=== PATIENT | male | born 1985 | race Caucasian/White ===

== ENCOUNTER 2023-11-08 09:12 | Outpatient (CLI) | payer MEDICARE, SELFPAY ==
--- NOTE | ~2023-11-08 | XR_ITS ---
Right Knee Technique: AP, lateral, and sunrise views were obtained. Clinical History: Pain Findings: No fracture or dislocation is seen. Osseous alignment is anatomic. Joint spaces are preserv ed without degenerative or erosive change. Soft tissues are unremarkable. No joint effusion is seen. Impression: Unremarkable right knee radiographs. Reviewed, dictated and finalized at location . [facility] Impression: Unremarkable right knee radiographs.
== END 2023-11-08 09:13 ==
LOC: MICIMG 09:18
PROVIDERS: PCP Nurse Practitioner Family; Visit Provider Nurse Practitioner Family
DX: M25.561 Pain in right knee (principal)
CPT/HCPCS: 73564

== ENCOUNTER 2024-07-30 09:17 | Outpatient (CLI) | payer MEDICARE, SELFPAY ==
--- NOTE | ~2024-07-30 | XR_ITS ---
AP view of the pelvis and AP and lateral views of the right hip Clinical history: Pain Findings: No acute fracture or dislocation is seen. Osseous alignment is anatomic. Bilateral hip and SI joint spaces are preserved. Soft tissues are unremarkable. Impression: No significant abnormality is seen. Reviewed, dictated and finalized at [facility]. Impression: No significant abnormality is seen.
== END 2024-07-30 09:18 | disposition home or self-care (01) ==
PROVIDERS: PCP Nurse Practitioner Family; Visit Provider Nurse Practitioner Family
DX: M25.559 Pain in unspecified hip (principal)
CPT/HCPCS: 73502

== ENCOUNTER 2025-08-19 14:51 | Inpatient (IN) | payer MEDICARE, SELFPAY ==
--- OUTSIDE RECORDS SUMMARY | 2023-09-13 12:38 | XMS_ITS | Encounter Summary ---
Author Organization [facility] Address [address] [place] [address] Phone Care Team Providers Care Special Deputy Sheriff Name Role Phone Isaac Brizuela MD Unavailable [phone] Isaac Lobo DO Primary Care Provide r Reason for Referral * Procedure (Routine) - Closed Specialty Diagnoses / Procedures Referred By Yasmin bonilla Referred To Contact Pulmonology Diagnoses Respiratory failure with hypoxia, unspecified chronicity (HCC) Procedures Pulmonary Function Test -[facility] Adult PFT Lab- [facility]; Oxygen Assessment Titration, Spirometry, Spirometry with Bronchodilator, ABG, Lung Volumes, DLCO; Pleth with Airway Resistance; Room Air ABG; Spirometry Abrahan Tavera MD [address] [place] [address] Phone: tel: fax: Referral ID Status Reason Start Date Expiration Date Visits Re quested Visits Authorized [id number] Closed 06/30/2023 07/29/2024 1 1 OUT MARKER Reason for Visit * Procedure (Routine) - Closed Specialty Diagnoses / Procedures Referred By Contsanjana t Referred To Contact Pulmonology Diagnoses Respiratory failure with hypoxia, unspecified chronicity (HCC) Procedures Pulmonary Function Test -[facility]FT [facility]- [facility]; Oxygen Assessment Titration, Spirometry, Spirometry with Bronchodilator, ABG, Lung Volumes, DLCO; Pleth with Airway Resistance; Room Air ABG; Spirometry Abrahan Tavera MD [address] [place] [address] Phone: tel: fax: Referral ID Status Reason Start Date Expiration Date Visits Re quested Visits Authorized [id number] Closed 06/30/2023 07/29/2024 1 1 Encounter Details Date Type Department Care Team (Latest Contact Info) Description 09/13/2023 11:38 AM CUT OUT MARKER Hospital Encounter [facility] Medicine PFT Lab [address] [facility] [address] [place] [address] Respiratory failure with hypoxia, unspecified chronicity (HCC) Social History Tobacco Use Types Packs/Day Years Used Date Smoking Tobacco: Every Day Cigarettes 1 15 Smokeless Tobacco: Never Alcohol Use Standard Drinks/Week Comments No 0 (1 standard drink = 0.6 oz pur e alcohol) Personal Safety Answer Date Recorded Have you ever been in or are you currently in a harmful physical or emotional relationship or is someone making you feel afraid or unsafe? Denies 06/10/2023 Sex and Gender Information Value Date Recorded Sex Assigned at Not on file Legal Sex Male 12:34 AM CUT OUT MARKER Gender Identity Not on file Sexual Orientation Not on file documented as of this encounter Plan of Treatment Not on file documented as of this encounter Goals Goal Patient Goal Type Associated Problems Recent Progress Patient-Stated? Author CCM Chronic Pain Care Plan Chronic Care Management Worsening( 8:46 AM CDT) Ping Abarca, RN Note: Problem: Chronic Pain Goals: 1. Minimize further functional decline 2. Maximize quality of life 3. Control pain Strategies: - Activity/exercise program recommendation - Conservative stepwise pain medicine strategy with multi-disciplinary approach - Recommend healthy lifestyle strategies and compensatory methods as needed documented as of this encounter Procedures Procedure Name Priority Date/Time Associated Diagnosis Comments PULMONARY FUNCTION TEST (PFT) Routine 09/13/2023 12:33 PM CUT OUT MARKER Respiratory failure with hypoxia, unspecified chronicity (HCC) documented in this encounter Results * Pulmonary Function Test - (09/13/2023 12:33 PM CUT OUT MARKER) FVC PRE 2.60 L [facility] FVC %PRE PRED 60 % [facility] FVC POST 2.73 L [facility] FVC %POST PRED 63 % [facility] FEV1 PRE 2.26 L [facility] FEV1 %PRE PRED 63 % [facility] FEV1 POST 2.40 L [facility] FEV1 %POST PRED 67 % [facility] FEV1/FVC PRE 86.8 % [facility] FEV1/FVC POST 87.8 % [facility] FRC PL PRE 2.42 L [facility] FRC PL %PRE PRED 86 % [facility] RV PRE 1.50 L [facility] RV %PRE PRED 99 % [facility] TLC PRE 4.39 L [facility] TLC %PRE PRED 75 % [facility] DLCO PRE 12.9 ml/min/mmH g [facility] DLCO %PRE PRED 48 % [facility] FIO2 % 21.00 % [facility] PaO2 70.0 mmHg [facility] PaCO2 45.0 mmHg [facility] pH 7.41 [facility] A-aDO2 POC 23.0 mmHg [facility] METHGB % 1.0 % [facility] COHb POC 12.4 % [facility] HCO3 28.5 mEq/L [facility] Anatomical Region Laterality Modality PFT 09/13/2023 11:4 1 AM CUT OUT MARKER Impressions 09/14/2023 12:43 PM CUT OUT MARKER There is a mild restrictive ventilatory defect. There is moderate impairment of alveolar gas exchange by DLCO. There is mild impairment of O2 gas exchange at rest by ABG. The carboxyhemoglobin level is consistent with current smoking status. The attending pulmonary physician certifies a physician presence in the [facility] during the administration of aerosolized bronchodilator. The attending pulmonary physician certifies that he/she has reviewed and interpreted the graphic and numerical data of this pulmonary function study and agrees with the written final report. The lower limit of normal for PO2 and %HbO2 is age dependent. However, the [facility] Pulmonary Function Laboratory defines hypoxemia as a PO2 <55 or a %HbO2 <89. Narrative 09/14/2023 12:43 PM CUT OUT MARKER Table formatting from the original result was not included. [facility] Division of Pulmonary & Critical Care Medicine [address] [place] [address]; [place]; [place] [address]; [phone] Pulmonary Function Laboratory Pulmonary Stress Test Simple/Oxygen Assessment Patient: Sahil Arroyo Date: 09/13/2023 : 1985 Ht: 64.5 IN Wt: 189.1 LBS Time (min) Distance (ft)/ Leroy O2 L/M SpO2 HR Shiela* BP FEV1 % Pred Rest: RA 95 113 0.5 94/64 2.26 63 % Walk/Bike: 1 RA 93 121 2 2 RA 91 121 3 3 RA 91 126 3 4 RA 91 127 4 5 RA 87 127 4 6 min 0 sec RA 92 128 4 Recovery: 1 RA 97 122 5 94/66 2.13 60% 3 *Shiela rate of perceived exertion (1-10 dyspnea scale) Patricio, CHEST 2003; 123:1408 Walk Test Summary: Six Minute Walk Distance: 955 ft Six-minute Walk Work [distance (m) x body wt (kg)]: 48887 kg.m (normal >60,000kg.m) Oxygen required to maintain SpO2 greater than 90% during six minutes of walkin L/M Comments: Interpretation: Breathing room air, SpO2 is normal at rest and during exercise sufficient to increase pulse from 113 to 128 b/min, SpO2 falls but remains normoxemic . On this basis, SpO2 is adequate at rest breathing room air and while walking breathing room air. This level of exercise is associated with no significant change of FEV1. Lee López M.D. By signing this report, the attending pulmonary physician certifies that he/she has personally reviewed and interpreted the graphic and numerical data associated with this pulmonary function study and has reviewed and /or edited a preliminary draft report and agrees with the written final report. PFT performed at:->[facility] Adult PFT Lab- [facility] Procedure:->Oxygen Assessment Titration Procedure:->Spirometry Procedure:->Spirometry with Bronchodilator Procedure:->ABG Procedure:->Lung Volumes Procedure:->DLCO Lung Volumes via:->Pleth with Airway Resistance ABG:->Room Air ABG DLCO:->Spirometry Pulmonary Function Test Interpretation SPIROMETRY: The FEV-I and FVC are reduced in a pattern suggestive of a restrictive abnormality. There is no significant improvement after inhaling a single nebulized dose of albuterol. FLOW VOLUME LOOPS: The inspiratory loop is appropriate for the expiratory flow abnormality. LUNG VOLUMES: TLC measured by plethysmography is decreased. DIFFUSING CAPACITY: DLCO did not meet standards of acceptability and reproducibility. This diminishes the reliability of the results The diffusing capacity corrected for hemoglobin level (DLCO ADJ) is decreased. A decreased diffusing capacity may be due to loss of pulmonary capillary surface area. Causes inctude pulmonary fibrosis (altered LULY relationship), pulmonary vascutar disease, emphysema, or interstitial pneumonitis. ARTERIAL BLOOD GASES: There is a compensated metabolic alkalosis. The arterial p02 is below the lower limit of normal for the patient's age at rest. 02 saturation measured by oximetry is in the hypoxemic range at rest. The COHb level is 12.4 %. Normal is less than 2%. Abrahan Tavera MD PFT ORDERABLES Final Result documented in this encounter Visit Diagnoses Diagnosis Respiratory failure with hypoxia, unspecified chronicity (HCC) documented in this encounter Care Teams Special Deputy Sheriff Relationship Specialty Start Date End Date Isaac Lobo DO [address] [place] [address] PCP - General Family Medicine 09/13/23 Isaac Brizuela MD [address] [address] Pulmonary Disease 04/21/23 documented as of this encounter
--- OUTSIDE RECORDS SUMMARY | 2023-09-13 12:38 | XMS_ITS | Encounter Summary ---
Author Organization [facility] Address [address] [place] [address] Phone Care Team Providers Care Wildlife Biologist Name Role Phone Isaac Brizuela MD Unavailable [phone] Isaac Lobo DO Primary Care Provide r Reason for Referral * Procedure (Routine) - Closed Specialty Diagnoses / Procedures Referred By Yasmin bonilla Referred To Contact Pulmonology Diagnoses Respiratory failure with hypoxia, unspecified chronicity (HCC) Procedures Pulmonary Function Test -[facility]FT [facility]- [facility]; Oxygen Assessment Titration, Spirometry, Spirometry with Bronchodilator, ABG, Lung Volumes, DLCO; Pleth with Airway Resistance; Room Air ABG; Spirometry Abrahan Tavera MD [address] [place] [address] Phone: tel: fax: Referral ID Status Reason Start Date Expiration Date Visits Re quested Visits Authorized [id number] Closed 06/30/2023 07/29/2024 1 1 GER LINUX Reason for Visit * Procedure (Routine) - Closed Specialty Diagnoses / Procedures Referred By Contsanjana t Referred To Contact Pulmonology Diagnoses Respiratory failure with hypoxia, unspecified chronicity (HCC) Procedures Pulmonary Function Test -[facility]- [facility]; Oxygen Assessment Titration, Spirometry, Spirometry with Bronchodilator, ABG, Lung Volumes, DLCO; Pleth with Airway Resistance; Room Air ABG; Spirometry Abrahan Tavera MD [address] [place] [address] Phone: tel: fax: Referral ID Status Reason Start Date Expiration Date Visits Re quested Visits Authorized [id number] Closed 06/30/2023 07/29/2024 1 1 Encounter Details Date Type Department Care Team (Latest Contact Info) Description 09/13/2023 11:38 AM MANAGER LINUX Hospital Encounter [facility] Medicine PFT Lab [address] [facility] [address] [place] [address] Respiratory failure with hypoxia, unspecified chronicity (HCC) [...] on file Legal Sex Male 12:34 AM MANAGER LINUX Gender Identity Not on file Sexual Orientation [...] FUNCTION TEST (PFT) Routine 09/13/2023 12:33 PM MANAGER LINUX Respiratory failure with hypoxia, unspecified chronicity (HCC) documented in this encounter Results * Pulmonary Function Test - (09/13/2023 12:33 PM MANAGER LINUX) FVC PRE 2.60 L [facility] FVC %PRE PRED 60 % [facility] FVC POST 2.73 L [facility] FVC %POST PRED 63 % [facility] FEV1 PRE 2.26 L [facility] FEV1 %PRE PRED 63 % [facility] FEV1 POST 2.40 L [facility] FEV1 %POST PRED 67 % [facility] FEV1/FVC PRE 86.8 % [facility] FEV1/FVC POST 87.8 % [facility] FRC PL PRE 2.42 L [facility] FRC PL %PRE PRED 86 % [facility] RV PRE 1.50 L [facility] RV %PRE PRED 99 % [facility] TLC PRE 4.39 L [facility] TLC %PRE PRED 75 % [facility] DLCO PRE 12.9 ml/min/mmH g [facility] DLCO %PRE PRED 48 % [facility] FIO2 % 21.00 % [facility] PaO2 70.0 mmHg [facility] PaCO2 45.0 mmHg [facility] pH 7.41 [facility] A-aDO2 POC 23.0 mmHg [facility] METHGB % 1.0 % [facility] COHb POC 12.4 % [facility] HCO3 28.5 mEq/L [facility] Anatomical Region Laterality Modality PFT 09/13/2023 11:4 1 AM MANAGER LINUX Impressions 09/14/2023 12:43 PM MANAGER LINUX There is a mild restrictive ventilatory defect. [...] and %HbO2 is age dependent. However, the [facility] Pulmonary Function Laboratory defines hypoxemia as a PO2 <55 or a %HbO2 <89. Narrative 09/14/2023 12:43 PM MANAGER LINUX Table formatting from the original result was not included. [facility] Division of Pulmonary & Critical Care Medicine [address] [place] [address]; [address]; [place] [address]; [phone] Pulmonary Function Laboratory Pulmonary Stress Test Simple/Oxygen [...] Work [distance (m) x body wt (kg)]: 12033 kg.m (normal >60,000kg.m) Oxygen required to maintain [...] with the written final report. PFT performed at:->[facility] Adult PFT Lab- [facility] Procedure:->Oxygen Assessment Titration Procedure:->Spirometry Procedure:->Spirometry with [...] (HCC) documented in this encounter Care Teams Wildlife Biologist Relationship Specialty Start Date End Date Isaac Lobo DO [address] [place] [address] PCP - General Family Medicine 09/13/23 Isaac Brizuela MD [address] [address] Pulmonary Disease 04/21/23 documented as of this encounter
--- OUTSIDE RECORDS SUMMARY | 2025-05-01 12:30 | XMS_ITS ---
Author Organization [facility] ([address]) Address [address] [place] [address] Care Team Providers Care Apprentice Funeral Director Name Role Phone Isaac Lobo Primary Care Provider Estrella Thornton Unavailable [phone] REASON FOR VISIT VIT (Venom IT) Social History Sex Assigned At : Social History Observation Description Sex Assigned At Male Encounters Encounter Location Date Provider Diagnosis [facility] [address] [place] [address] 05/01/2025 Estrella Griffith Plan Of Treatment Next Appt Details Provider Name:Estrella sorto, 08/28/2025 10:00:00 AM, [address] [employer], [address], [place], [address], Provider Name:Dory escalera, 10/03/2025 02:45:00 PM, [address] [place] [address], [address], Provider Name:Estrella sorto, 11/06/2025 11:00:00 AM, [address] [employer], [address], [place], [address], Progress Notes * Lissy STARKOB:1985 (40 yo M)Acc No.[id number]:05/01/2025 VIT-Venom Patient: Sahil JAUREGUI Provider: aSda Griffith MD :1985 A ge:39 Y S ex:Male Date:05/01/2025 Address:[address] [place] [address] [facility] Pcp:Isaac Lobo Subjective: * Chief Complaints: * 1 . VIT (Venom IT). * Medical History: Objective: * Vitals: Assessment: Plan: * Treatment: * Billing Information: * Visit Code: * Procedure Codes: * Electronic signature of Roseanne Griffith MD on 08/20/2025 at 08:15 AM CDT Sign off status: Pending * Provider: Sada Griffith MD Date: 0 05/01/2025 Generated for Lena oliva/Alessandra/Michaelsmitting on: 1 08:15 AM CDT
--- OUTSIDE RECORDS SUMMARY | 2025-05-01 12:30 | XMS_ITS ---
Author Organization [facility] ([address]) Address [address] [place] [address] Care Team Providers Care Plasma Processing Technician Name Role Phone Isaac Lobo Primary Care Provider Estrella Thornton Unavailable [phone] REASON FOR VISIT VIT (Venom IT) Social History Sex Assigned At : Social History Observation Description Sex Assigned At Male Encounters Encounter Location Date Provider Diagnosis [facility] [address] [place] [address] 05/01/2025 Estrella Griffith Plan Of Treatment Next Appt Details Provider Name:Estrella sorto, 08/28/2025 10:00:00 AM, [address] [employer], [address], [place], [address], Provider Name:Dory escalera, 10/03/2025 02:45:00 PM, [address] [place] [address], [address], Provider Name:sEtrella sorto, 11/06/2025 11:00:00 AM, [address] [employer], [address], [place], [address], Progress Notes * Lissy STARKOB:1985 (40 yo M)Acc No.[id number]:05/01/2025 VIT-Venom Patient: Sahil JAUREGUI Provider: Sada Griffith MD :1985 A ge:39 Y S ex:Male Date:05/01/2025 Address:[address] [place], [place] [id number] Pcp:Isaac Lobo Subjective: * Chief Complaints: * 1 . VIT (Venom IT). * Medical History: Objective: * Vitals: Assessment: Plan: * Treatment: * Billing Information: * Visit Code: * Procedure Codes: * Electronic signature of Roseanne Griffith MD on 08/19/2025 at 06:46 PM CDT Sign off status: Pending * Provider: Sada Griffith MD Date: 0 05/01/2025 Generated for Lena oliva/Alessandra/Michaelsmitting on: 1 06:46 PM CDT
--- OUTSIDE RECORDS SUMMARY | 2025-05-15 12:30 | XMS_ITS ---
Author Organization [facility] [place] [facility] ([address]) Address [address] [place] [address] Care Team Providers Care Hedis Abstractor Name Role Phone Isaac Lobo Primary Care Provider Estrella Thornton Unavailable [phone] REASON FOR VISIT ARC follow-up Social History Sex Assigned At : Social History Observation Description Sex Assigned At Male Encounters Encounter Location Date Provider Diagnosis [facility] [address] [place] [address] 05/15/2025 Estrella Griffith Plan Of Treatment Next Appt Details Provider Name:Estrella sorto, 08/28/2025 10:00:00 AM, [address] [employer], [address], [address], Provider Name:Dory escalera, 10/03/2025 02:45:00 PM, [address] [place] [address], [address], Provider Name:Estrella sorto, 11/06/2025 11:00:00 AM, [address], [address], [place], [address], Progress Notes * Lissy STARKOB:1985 (40 yo M)Acc No.[id number]:05/15/2025 Progress Notes Patient: Sahil JAUREGUI Provider: Sada Griffith MD :1985 A ge:39 Y S ex:Male Date:05/15/2025 Address:[address] [place], [place] [address] Pcp:Isaac Lobo Subjective: * Chief Complaints: * 1 . ARC follow-up. * Medical History: Objective: * Vitals: Assessment: Plan: * Treatment: * Billing Information: * Visit Code: * Procedure Codes: * Electronic signature of Roseanne Griffith MD on 08/20/2025 at 08:15 AM CDT Sign off status: Pending * Provider: Sada Griffith MD Date: 0 05/15/2025 Generated for Lena oliva/Alessandra/eTransmeunice on: 1 08:15 AM CDT
--- OUTSIDE RECORDS SUMMARY | 2025-05-15 12:30 | XMS_ITS ---
Author Organization [facility] ([address]) Address [address] [place] [address] Care Team Providers Care Analytical Technician Name Role Phone Isaac Lobo Primary Care Provider Estrella Thornton Unavailable [phone] REASON FOR VISIT ARC follow-up Social History Sex Assigned At : Social History Observation Description Sex Assigned At Male Encounters Encounter Location Date Provider Diagnosis [facility] [address] [place] [address] 05/15/2025 Estrella Griffith Plan Of Treatment Next Appt Details Provider Name:Estrella sorto, 08/28/2025 10:00:00 AM, [address] [employer], [address], [address], Provider Name:Dory escalera, 10/03/2025 02:45:00 PM, [address] [place] [address], [phone], Provider Name:Estrella sorto, 11/06/2025 11:00:00 AM, [address] [employer], [address], [place], [address], Progress Notes * Lissy STARKOB:1985 (40 yo M)Acc No.[id number]:05/15/2025 Progress Notes Patient: Sahil JAUREGUI Provider: Sada Griffith MD :1985 A ge:39 Y S ex:Male Date:05/15/2025 Address:[address] [place] [address] [facility] Pcp:Isaac Lobo Subjective: * Chief Complaints: * 1 . ARC follow-up. * Medical History: Objective: * Vitals: Assessment: Plan: * Treatment: * Billing Information: * Visit Code: * Procedure Codes: * Electronic signature of Roseanne Griffith MD on 08/19/2025 at 06:47 PM CDT Sign off status: Pending * Provider: Sada Griffith MD Date: 0 05/15/2025 Generated for Lena oliva/Alessandra/eTlaurasmeunice on: 1 06:47 PM CDT
[2025-08-19] VITALS (11 sets, daily range): BP systolic 97–140; BP diastolic 61–98; PULSE 79–93; RESP 16–22; TEMP 36.4–36.8; O2SAT 93–98; BMI 27.6
--- NOTE | ~2025-08-19 | CT_ITS ---
EXAMINATION: CT brain wo con COMPARISON: None HISTORY: fall, seizure, hit head TECHNIQUE: Axial images were obtained through the brain without IV contrast. CT scan performed using dose optimization techniques including the following automated exposure control; adjustment of mA and/or kV; use of iterative reconstruction technique. Automatic exposure control was used to reduce radiation dose. Permanent radiation dose record is archived to PACS. FINDINGS: No acute infarct or parenchymal hemorrhage. No abnormal mass or mass effect. No midline shift. No extra-axial fluid collections. No hydrocephalus. . Mastoid air cells unremarkable. Sinuses and orbits unremarkable. No acute fracture. No significant facial or scalp soft tissue swelling evident. No radiopaque foreign body is seen. Impression: 1.No acute intracranial abnormality. Reviewed, dictated and finalized at location P. Impression: 1.No acute intracranial abnormality.
--- NOTE | ~2025-08-19 | MR_ITS ---
EXAMINATION: MR brain/brain stem wo/w con DATE: 08/20/2025 12:16 INDICATION: Seizures TECHNIQUE: Magnetic resonance imaging (MRI) of the brain and brainstem was performed without and with 15 mL Multihance intravenous contrast. Sequences included sagittal and axial T1-weighted SE, axial diffusion-weighted FS SE, axial T2*-weighted GRE, axial T2-weighted FLAIR Propeller, axial T2-weighted Propeller, coronal T2-weighted FLAIR, and coronal T1-weighted 3D FSPGR. Postcontrast axial T1-weighted SE was obtained. Apparent diffusion coefficient (ADC) maps were created. COMPARISON: None. FINDINGS: There are no areas of restricted diffusion to suggest acute infarction. No intracranial hemorrhage or abnormal intracranial mass lesion. Normal and symmetric bilateral hippocampi. No hatfield matter heterotopias or other evident neuronal migrational abnormalities. There are no intraparenchymal signal abnor malities seen on the other pulse sequences. The ventricles are symmetric and normal in size. There are no abnormal extra-axial fluid collections. Flow voids are seen in the cerebral arteries on the T2-weighted sequences consistent with their expected patency. Visualized orbits and soft tissues are unremarkable. There are no areas of abnormal enhancement on the post contrast images. IMPRESSION: 1. Normal brain MR. No acute intracranial process, abnormal enhancing brain lesions or other etiology for reported seizures. Reviewed, dictated and finalized at location A. IMPRESSION: 1. Normal brain MR. No acute intracranial process, abnormal enhancing brain les ions or other etiology for reported seizures.
--- NOTE | 2025-08-19 15:00 | ECG_ITS ---
Test Date: 2025-08-19 15:02:23 Measurements Intervals [place] Rate: 90 P: 60 CT: 155 QRS: -15 QRSD: 105 T: 28 QT: 349 QTc: 428 Interpretive Statements SINUS RHYTHM LOW QRS VOLTAGE IN PRECORDIAL LEADS INCOMPLETE RIGHT BUNDLE BRANCH BLOCK BASELINE ARTIFACT- I, II, AVR, AVL, V1-V2 BORDERLINE ECG No previous ECG available for comparison Electronically Signed On 08-19-2025 17:01:13 CDT by Jeyson Mcallister D.O.
--- NOTE | 2025-08-19 15:04 | ED.SEIZURE ---
HPI - Seizure General Chief Complaint: Seizure Stated Complaint: seizure ? Time Seen by Provider: 08/19/25 14:55 Source: patient and EMS Mode of arrival: EMS Limitations: no limitations History of Present Illness HPI Narrative: This is a 40 yo male with history of CPRS now s/p ketamine treatments who presents to the ED via EMS for seizure activity. Patient reports she family at bedside state that patient was sitting in his chair when he slowly became less responsive fell out of his chair onto his left side and had shaking activity for less than 30 seconds with foaming at the mouth. He has never had anything this before. Patient reports that he feels like he is himself at this time with a mild headache. Does report some neck stiffness. Denies fevers, chills, chest pain, shortness of breath, nausea, vomiting, diarrhea, constipation, abdominal pain. Related Data Home Medications ?Medication ?Instructions ?Recorded ?Confirmed ?Last Taken ?Type cariprazine 1.5 mg capsule 1.5 mg PO DAILY 08/19/25 08/19/25 Unknown History (Vraylar) celecoxib 200 mg capsule 200 mg PO BID 08/19/25 08/19/25 Unknown History clonazepam 0.5 mg tablet 0.5 mg PO DAILY PRN anxiety 08/19/25 08/19/25 Unknown History diazepam 5 mg tablet 5 mg PO DAILY PRN anxiety 08/19/25 08/19/25 Unknown History hydroxychloroquine 200 mg tablet 200 mg PO BID 08/19/25 08/19/25 Unknown History lamotrigine 25 mg tablet 75 mg PO DAILY 08/19/25 08/19/25 Unknown History trazodone 100 mg tablet 200 mg PO HS PRN insomnia 08/19/25 08/19/25 Unknown History Allergies Allergy/AdvReac Type Severity Reaction Status Date / Time Sulfa (Sulfonamide Allergy Intermediate Unknown Verified 08/19/25 18:37 Antibiotics) Cephalosporins Allergy Mild Unknown Verified 08/19/25 18:37 erythromycin base Allergy Mild Nausea and Verified 08/19/25 18:37 Vomiting Latex, Natural Rubber Allergy Mild Rash Verified 08/19/25 18:37 bee sting Allergy Severe Anaphylactic Uncoded 08/19/25 15:10 Shock macrolides Allergy Intermediate Rash Uncoded 08/19/25 15:10 Review of Systems Review of Systems: Gen.: Denies fevers or chills Eyes: Denies eye pain or visual change ENT: Denies congestion Respiratory: Denies shortness of breath or cough CV: Denies chest pain or palpitations GI: Denies abdominal pain nausea, emesis or diarrhea denies burning, urgency, frequency or hematuria Musculoskeletal: Denies back pain or muscle pain Neuro: Denies numbness, tingling, weakness or focal weakness Skin: Denies rash Except as documented, all other systems reviewed and negative [facility] Social History Social History Smoking packs per day: 2 Smoking cigarettes per day: 40.0 Years smoked: 30 Smoking pack-years: 60.00 Smoking status: Current every day smoker Tobacco type: cigarettes Alcohol intake: never Substance use: never Lack of Transportation: No Lack of Food: Never True Current Housing: I Have Housing Concerned About Future Housing: No Difficulty Paying Gas/Electric Bills: No Difficulty Paying for Meds: No Currently Unemployed: No Education: High School Diploma/GED Difficulty w/ Childcare or Family Care: No Spiritual care concerns: No Exam Narrative: APPEARANCE: No acute distress, nontoxic, resting in bed EYES: EOMI HEENT: Normocephalic, OMM. Abrasion over the bridge of the nose. RESPIRATORY: No respiratory distress Clear to auscultation bilaterally with no rhonchi wheezing or rales. CARDIOVASCULAR: Regular rate and rhythm without murmurs rubs or gallops. ABDOMINAL: Soft, nontender, nondistended, no rebound or guarding MUSCULOSKELETAl: Moves all extremities. No clubbing, cyanosis or edema. NEURO: Awake and alert. Following commands, speech normal, no focal deficits SKIN:: Warm, dry. No rashes lesions or abrasions PSYCHIATRIC: Normal affect/mood, Course Vital Signs Vital signs: Vital Signs Temperature 97.6 F 08/19/25 14:55 Pulse Rate 88 08/19/25 14:55 Respiratory Rate 16 08/19/25 14:55 Blood Pressure 140/98 H 08/19/25 14:55 Pulse Oximetry 95 08/19/25 14:55 Oxygen Delivery Room Air 08/19/25 14:55 Temperature 97.9 F 08/19/25 20:00 Pulse Rate 85 08/19/25 20:00 Respiratory Rate 20 08/19/25 20:00 Blood Pressure 107/71 08/19/25 20:00 Pulse Oximetry 97 08/19/25 20:00 Oxygen Delivery Room Air 08/19/25 20:00 MDM - Seizure MDM Narrative Medical decision making narrative: 40-year-old male presenting for seizure activity. On initial evaluation time patient was in no distress, afebrile hemodynamically stable. Had a reported postictal. By EMS but was A/O x4 on my evaluation. He had a nonfocal neuro exam. His small abrasion over the bridge of his nose but no other trauma noted. He had a mild leukocytosis at 11. CMP revealed a hyponatremia at 1:23 a.m.. UA clear. UDS negative. On further discussion the patient he reported that he had been feeling rather thirsty for the past several days had been drinking a lot of electrolyte containing fluid, denied taking any water on its own. He does note neck stiffness but there are no meningeal signs on re-evaluation, pain is isolated to the neck, suspect related to the seizure itself. He is otherwise nontoxic appearing so low suspicion for meningitis at this time. Patient was given Keppra for coverage of possible new onset seizure. Given his hyponatremia, I did discuss the case with Dr. Bravo, nephrology, who will see the patient as consult. Discussed the case with Dr. Ford, sweep press operator, who will manage the patient ICU, recommends q.4 BMPs. Discussed the case with hospitalist who will admit the patient. Differential Diagnosis Differential diagnosis: Likely generalized seizure, new onset seizure, status epilepticus and other (Electrolyte abnormality, drug withdrawal, alcohol withdrawal, drug abuse) Medical Records Attestation: I reviewed the patient's medical records. Lab Data Attestation: I reviewed the patient's lab results. 08/19/25 15:37 08/19/25 20:03 Labs: Lab Results 08/19/25 Range/Units 15:37 WBC 11.0 H (4.5-10.0) K/mm3 RBC 4.25 L (4.6-6.20) M/mm3 Hgb 14.1 (14.0-18.0) g/dL Hct 38.5 L (42.0-52.0) % MCV 90.6 (80-100) fl MCH 33.2 (26-34) pg MCHC 36.6 H (32-36) g/dl RDW 12.0 (11.5-14.5) % Plt Count 284 (150-375) k/mm3 MPV 7.8 (7.4-10.4) fl Immature Gran % (Auto) 1.0 H (0-0.5) % Neut % (Auto) 68.1 (45.5-73.1) % Lymph % (Auto) 23.1 (18.3-44.2) % [place] % (Auto) 5.6 (2.6-8.5) % Eos % (Auto) 1.7 (0-4.4) % Baso % (Auto) 0.5 (0.2-1.2) % Lymph # (Auto) 2.54 (0.9-3.2) K/mm3 [place] # (Auto) 0.6 (0.1-0.6) K/mm3 Eos # (Auto) 0.2 (0-0.3) K/mm3 Baso # (Auto) 0.1 (0.0-0.1) K/mm3 Abs Immat Gran (auto) 0.11 H (0.00-0.031) K/mm3 Absolute Neuts (auto) 7.5 H (1.3-6.7) K/mm3 Absolute Nucleated RBC 0.000 (0.0-0.012) K/mm3 Nucleated RBC % 0.0 (0.0-0.2) % Sodium 123 L (137-145) mmol/L Potassium 4.4 (3.4-5.0) mmol/L Chloride 91 L (98-107) mmol/L Carbon Dioxide 25 (22-30) mmol/L Anion Gap 7 (4-12) mmol/L BUN 9 (9-20) mg/dL Creatinine 0.64 L (0.7-1.3) mg/dL Estim Creat Clear Calc 136 ml/min Estimated GFR > 60 (59 - ) Glucose 84 (65-110) mg/dL Lactic Acid 1.7 (0.7-2.0) mmol/L Calcium 8.9 (8.4-10.2) mg/dL Total Bilirubin 0.5 (0.2-1.3) mg/dL AST 37 (17-59) U/L ALT 39 (6-50) U/L Alkaline Phosphatase 118 (38-126) U/L Total Protein 7.2 (6.3-8.2) g/dL Albumin 4.5 (3.5-5.1) g/dL Urine Color Yellow (Yellow) Urine Appearance Clear (Clear) Urine pH 6.0 (5.0-9.0) Ur Specific [place] 1.009 (1.001-1.035) Urine Protein Negative (Negative) mg/dL Urine Glucose (UA) Negative (Negative) mg/dL Urine Ketones Negative (Negative) mg/dL Ur Blood (Man) Negative (Negative) Urine Nitrate Negative (Negative) Urine Bilirubin Negative (Negative) Urine Urobilinogen 0.2 (<2.0) mg/dL Leukocyte Esterase Rfl Negative (Negative) NORA/UL Urine Opiates Screen Negative (Negative) Urine Methadone Screen Negative (Negative) Ur Barbiturates Screen Negative (Negative) Ur Phencyclidine Scrn Negative (Negative) Ur Amphetamine Screen Negative (Negative) U Benzodiazepines Scrn Negative (Negative) Urine Cocaine Screen Negative (Negative) U Cannabinoids Screen Negative (Negative) Ethyl Alcohol < 10 (<10) mg/dL Imaging Data Attestation: I personally reviewed and interpreted this imaging study as follows: Radiologist's impression: Impressions Head CT 08/19/25 16:06 Impression: 1.No acute intracranial abnormality. ECG Data EKG #1: Attestation: I personally reviewed and interpreted this ECG as follows: ECG completion date: 08/19/25 ECG completion time: 15:02 Interpretation: Normal sinus rhythm rate of 90, normal axis, incomplete right bundle-branch block, no acute ST or T-wave changes Discharge Plan Discharge Clinical Impression: Acute hyponatremia, New onset seizure Patient Disposition: Still a Patient Condition: Serious
[2025-08-19 15:49] LABS: Hematocrit 38.5 % (42.0-52.0); Hemoglobin 14.1 g/dL (14.0-18.0); Immature Granulocyte Percent A 1.0 % (0-0.5); Lymphocytes Absolute Auto 2.54 K/mm3 (0.9-3.2); Mean Corpuscular HGB Conc 36.6 g/dl (32-36); Mean Corpuscular Hemoglobin 33.2 pg (26-34); Mean Corpuscular Volume 90.6 fl (80-100); Nucleated Red Blood Cells Absolute Auto 0.000 K/mm3 (0.0-0.012); Nucleated Red Blood Cells Perc 0.0 % (0.0-0.2); Platelet Count Result 284 k/mm3 (150-375); Red Blood Count 4.25 M/mm3 (4.6-6.20); White Blood Count 11.0 K/mm3 (4.5-10.0)
[2025-08-19 15:53] LABS: Add Urine Microscopic? NO; Appearance Urine Clear (Clear); Glucose Urine UA Negative (Negative); Leukocyte Esterase Ur Negative LEU/UL (Negative); Nitrate Urine Negative (Negative); Specific Grav Ur 1.009 (1.001-1.035)
[2025-08-19 16:00] LABS: Alanine Aminotransferase 39 U/L (6-50); Albumin Level 4.5 g/dL (3.5-5.1); Alkaline Phosphatase 118 U/L (38-126); Anion Gap 7 mmol/L (4-12); Aspartate Amino Transferase 37 U/L (17-59); Bilirubin,Total 0.5 mg/dL (0.2-1.3); Blood Urea Nitrogen 9 mg/dL (9-20); Calcium 8.9 mg/dL (8.4-10.2); Carbon Dioxide 25 mmol/L (22-30); Chloride 91 mmol/L (98-107); Estimated CRCL calculation 136 ml/min; Estimated Glomerular Filt Rate > 60; Glucose 84 mg/dL (65-110); Potassium 4.4 mmol/L (3.4-5.0); Sodium 123 mmol/L (137-145); Total Protein 7.2 g/dL (6.3-8.2)
[2025-08-19 16:08] LABS: Cannabinoid Screen Urine Negative (Negative)
[2025-08-19] MEDS: SODIUM CHLORIDE 0.9% IV 1,000 ML 999 ML IV CONT (16:20)
[2025-08-19] MEDS: levETIRAcetam 1000MG/NACL100ML 1,000 MG/100 ML BAG 400 MG IVPB (17:28)
--- NOTE | 2025-08-19 18:03 | PM.IMHP ---
H&P: HPI History of Present Illness Date/Time: 08/19/25 18:03 Chief Complaint: Possible seizure Narrative: 40-year-old male with past medical history of anxiety and depression, chronic back pain, CPRS with ketamine treatments presents to the ED via EMS on 08/19/2025 for seizure-like activity. The patient was sitting in a chair when he became less responsive and fell out of a chair onto the left side of his face and had a shaking activity described by witnesses for less than 30 seconds with apparent foaming at the mouth. Patient does not have history of seizures. Patient seemed ?postictal? with EMS but felt like himself on arrival to the ED. denies fevers, chills, chest pain, shortness a breath, nausea, vomiting, diarrhea, constipation, abdominal pain. Patient does state that he has felt more thirsty lately and drinking a lot of electrolyte containing fluids. Vital signs stable on admit. Afebrile Labs with a slight leukocytosis at 11. Sodium noted to be 123. UDS negative. UA with no evidence of infection. Head CT with no acute intracranial abnormality Review of Systems Review of Systems: All systems reviewed & are unremarkable except as noted in HPI and below PMFSH Social History Social History Smoking packs per day: 2 Smoking cigarettes per day: 40.0 Years smoked: 30 Smoking pack-years: 60.00 Smoking status: Current every day smoker Tobacco type: cigarettes Alcohol intake: never Substance use: never Lack of Transportation: No Lack of Food: Never True Current Housing: I Have Housing Concerned About Future Housing: No Difficulty Paying Gas/Electric Bills: No Difficulty Paying for Meds: No Currently Unemployed: No Education: High School Diploma/GED Difficulty w/ Childcare or Family Care: No Spiritual care concerns: No Meds Home Medications and Allergies Home Medications ?Medication ?Instructions ?Recorded ?Confirmed ?Type cariprazine 1.5 mg capsule 1.5 mg PO DAILY 08/19/25 08/19/25 History (Vraylar) celecoxib 200 mg capsule 200 mg PO BID 08/19/25 08/19/25 History clonazepam 0.5 mg tablet 0.5 mg PO DAILY PRN anxiety 08/19/25 08/19/25 History diazepam 5 mg tablet 5 mg PO DAILY PRN anxiety 08/19/25 08/19/25 History hydroxychloroquine 200 mg tablet 200 mg PO BID 08/19/25 08/19/25 History lamotrigine 25 mg tablet 75 mg PO DAILY 08/19/25 08/19/25 History trazodone 100 mg tablet 200 mg PO HS PRN insomnia 08/19/25 08/19/25 History Allergies Allergy/AdvReac Type Severity Reaction Status Date / Time Sulfa (Sulfonamide Allergy Intermediate Unknown Verified 08/19/25 18:37 Antibiotics) Cephalosporins Allergy Mild Unknown Verified 08/19/25 18:37 erythromycin base Allergy Mild Nausea and Verified 08/19/25 18:37 Vomiting Latex, Natural Rubber Allergy Mild Rash Verified 08/19/25 18:37 bee sting Allergy Severe Anaphylactic Uncoded 08/19/25 15:10 Shock macrolides Allergy Intermediate Rash Uncoded 08/19/25 15:10 Vital Signs Vital Signs - 24 hr 08/19/25 14:55 08/19/25 15:05 08/19/25 15:05 Temperature 97.6 F Pulse Rate 88 93 Respiratory Rate 16 Blood Pressure 140/98 H Pulse Oximetry 95 98 Oxygen Delivery Room Air Room Air 08/19/25 16:21 08/19/25 17:30 08/19/25 17:30 Temperature Pulse Rate 83 81 80 Respiratory Rate 20 17 17 Blood Pressure 124/87 118/85 118/85 Pulse Oximetry 96 97 97 Oxygen Delivery 08/19/25 17:31 Temperature Pulse Rate Respiratory Rate Blood Pressure Pulse Oximetry 97 Oxygen Delivery Room Air Exam Narrative: GENERAL: non-toxic appearing, in no acute distress. HEAD: Normocephalic. EYES: PERRLA. Conjunctivae clear. NOSE: And bruising to nose with Band-Aid in place THROAT: Pharynx clear, no exudate. NECK: Trachea midline. No adenopathy, no masses. RESPIRATORY: Airway patent, respirations nonlabored. CTA. CARDIOVASCULAR: Regular rate and rhythm GASTROINTESTINAL: Abdomen is soft and nontender. No organomegaly. Bowel sounds normal in all quadrants. GENITOURINARY: Defer MUSCULOSKELETAL: Moves all extremities. No gross deformities.. No calf tenderness. SKIN: Warm, dry, normal color. NEURO: A&O X4. Speech clear PSYCHIATRIC: Normal interaction H&P: Results Labs Labs: Short CBC 10/20/25 Range/Units 15:37 WBC 11.0 H (4.5-10.0) K/mm3 Hgb 14.1 (14.0-18.0) g/dL Hct 38.5 L (42.0-52.0) % Plt Count 284 (150-375) k/mm3 BMP 08/19/25 15:37 Sodium 123 L Potassium 4.4 Chloride 91 L Carbon Dioxide 25 BUN 9 Creatinine 0.64 L Glucose 84 Calcium 8.9 Liver Function 08/19/25 Range/Units 15:37 Total Bilirubin 0.5 (0.2-1.3) mg/dL AST 37 (17-59) U/L ALT 39 (6-50) U/L Alkaline Phosphatase 118 (38-126) U/L Albumin 4.5 (3.5-5.1) g/dL Urine 08/19/25 Range/Units 15:37 Urine Color Yellow (Yellow) Urine Appearance Clear (Clear) Urine pH 6.0 (5.0-9.0) Ur Specific [place] 1.009 (1.001-1.035) Urine Protein Negative (Negative) mg/dL Urine Glucose (UA) Negative (Negative) mg/dL Assessment and Plan Assessment and plan (1) Acute hyponatremia: Code(s): E87.1 - Hypo-osmolality and hyponatremia Status: Acute Assessment and Plan: patient was sitting in a chair when he became less responsive and fell out of a chair onto the left side of his face and had a shaking activity described by witnesses for less than 30 seconds with apparent foaming at the mouth. Patient does not have history of seizures. Patient states he recently started Vraylar 2 or 3 weeks ago. No other recent medication changes. -sodium 123-->> 129--> 134 -NS 1 L bolus -trend BNP -holding Vraylar as possible cause of hyponatremia (2) Seizure-like activity: Code(s): R56.9 - Unspecified convulsions Status: Acute Assessment and Plan: Hyponatremia possible etiology. Na 123 on admission. -no prolactin drawn to evaluate for seizure -Keppra 1000 mg (3) Smoker: Code(s): F17.200 - Nicotine dependence, unspecified, uncomplicated Status: Acute Assessment and Plan: 2 pack-a-day smoker -21 mg transdermal patch daily -counseled on quitting Plan Diet: Regular GI prophylaxis: None DVT prophylaxis: SCDs lines/drains: PIV Fluids: 1 L NS bolus Code status: Full code Quality VTE Prophylaxis VTE prophylaxis: mechanical ordered Hospitalist MIPS Advance Care Plan I have confirmed that the patient's Advanced Care Plan is present, code status is documented, or surrogate decision maker is listed in patient medical record.: Yes Medication Reconciliation I have utilized all available resources to obtain, update and review the patients current medications (includes all prescriptions, OTC, herbals, cannabis, and nutritional supplements).: Yes
--- NOTE | 2025-08-19 18:36 | ADMGEN ---
This patient, Sahil Arroyo, was admitted to Intensive Care Unit-3. Patient/family oriented to hospital policies and general routines including ID bracelet, bed and alarms, visiting hours, pain management, procedures, bathroom and other care routines, personal items, smoking policy, room service/diet, and visiting hours. Information on how to activate the Rapid Response Team has been discussed. Patient/Family are encouraged to report perceived risks to care and to ask questions if they do not understand what they are told or what they should do.
--- OUTSIDE RECORDS SUMMARY | 2025-08-19 18:46 | XMS_ITS | Clinical Summary ---
Author Organization [facility] Address [address] [place] [address] Care Team Providers Care Clerical And Office Support Workers Name Role Phone Isaac Brizuela MD Unavailable [phone] Isaac Lobo DO Primary Care Provide r Jonna Garcia RN Unavailable Unavailabl e Allergies Active Allergy Reactions Criticality Noted Date Comments Venom-Honey Bee Anaphylaxis High 02/23/2019 Clarithromycin Nausea & Vomiting Low 12/08/2017 Cephalosporins Hives Medium 12/21/2005 Doxycycline Nausea & Vomiting Low 12/08/2017 Erythromycin Vomiting Low 12/21/2005 Cephalexin Nausea & Vomiting Low 12/08/2017 Meloxicam Nausea & Vomiting Low 12/08/2017 Nabumetone Hives Medium 12/21/2005 Polyethylene Glycol Other (See comments),Shortness of breath High 04/25/2022 Shock to bees Quinolones Nausea & Vomiting,Nausea And Vomiting,Nausea only Low 12/21/2005 Other reaction(s): Nausea And Vomiting Rosuvastatin Rash Medium 06/22/2023 Sulfa Hives Medium 09/13/2023 Sulfa (Sulfonamide Antibiotics) Nausea And Vomiting,Nausea only,Nausea & Vomiting Low 12/21/2005 Sulfasalazine Nausea And Vomiting 09/24/2016 Medications gabapentin (NEURONTIN) 600 mg tablet Take 1 tablet (600 mg total) by mouth 3 (three) times a day 7 Active acetaminophen (TYLENOL) 500 mg tablet Take 1 tablet (500 mg total) by mouth every 6 (six) hours as needed for pain Active pramipexole (MIRAPEX) 0.5 mg tablet Take 1 tablet (0.5 mg total) by mouth daily Active ascorbic acid (ascorbic acid) 500 mg tablet,chewable Take 1 tablet/chew tab (500 mg total) by mouth daily Active cetirizine (WAL-ZYR, CETIRIZINE,) 10 mg tablet Take 1 tablet (10 mg total) by mouth daily Active cholecalciferol (cholecalciferol ) 1,000 unit tablet Take 1 tablet (1,000 Units total) by mouth daily Active dextromethorphan -guaifenesin (MUCINEX DM) 60-1,200 mg tablet extended release 12 hr Take 1 tablet by mouth daily 8 Active multivitamin with minerals tablet Take 1 tablet by mouth daily 8 Active oxyCODONE-acetam inophen (PERCOCET) 7.5-325 mg per tablet TK 1 T PO TID 0 9 Active saw palmetto 160 mg capsule Take 2 capsules by mouth 3 (three) times a day 8 Active dicyclomine (BENTYL) 20 mg tablet Take 1 tablet (20 mg total) by mouth 4 (four) times a day 120 tablet 2 9 Active albuterol HFA (PROVENTIL HFA,VENTOLIN HFA,PROAIR HFA) 90 mcg/actuation inhaler Inhale 2 puffs every 6 (six) hours as needed 3 Active atorvastatin (LIPITOR) 10 mg tablet Take 1 tablet (10 mg total) by mouth daily 3 Active EPINEPHrine 0.3 mg/0.3 mL auto-injection syringe Inject 0.3 mL (0.3 mg total) into the muscle as instructed as needed 0 Active ergocalciferol (VITAMIN D) 50,000 unit capsule TAKE ONE CAPSULE BY MOUTH EVERY 7 DAYS ON Wednesdays 2 Active fluticasone furoate-vilanter oL (BREO ELLIPTA) 200-25 mcg/dose diskus inhaler Inhale 1 puff daily 3 Active levoFLOXacin (LEVAQUIN) 750 mg tablet 3 Active mupirocin (BACTROBAN) 2 % ointment Apply topically 3 (three) times a day 2 Active naloxone (NARCAN) 4 mg/actuation spray,non-aeroso l CALL 911. SPR CONTENTS OF ONE SPRAYER (0.1ML) INTO ONE NOSTRIL. REPEAT IN 2-3 MIN IF SYMPTOMS OF OPIOID EMERGENCY PERSIST, ALTERNATE NOSTRILS Active nystatin 100,000 unit/mL suspension SHAKE LIQUID AND TAKE 5 ML BY MOUTH FOUR TIMES DAILY FOR 10 DAYS 3 Active omega-3 fatty acids (LOVAZA) 1 gram capsule Take 2 capsules (2 g total) by mouth daily Active omeprazole (PriLOSEC) 40 mg capsule Take 1 capsule (40 mg total) by mouth daily 3 Active predniSONE (DELTASONE) 20 mg tablet 3 Active triamcinolone (KENALOG) 0.1 % cream Apply topically 2 (two) times a day 3 Active gabapentin (NEURONTIN) 300 mg capsule Take 1 capsule (300 mg total) by mouth 3 (three) times a day 3 Active amoxicillin-clav ulanate (AUGMENTIN) 875-125 mg per tablet 3 Active baclofen (GABLOFEN) 1,000 mcg/mL solution intrathecal pump refill Baclofen Active DULoxetine 60 mg capsule, delayed rel sprinkle daily Active ibuprofen-acetam inophen 125-250 mg tablet Ibuprofen Active magnesium oxide (MAG-OX) 400 mg (241.3 mg elemental magnesium) tablet daily Active multivitamin tablet Take 1 tablet by mouth daily Active oxyCODONE 7.5 mg tablet, oral only every 6 hours Active propranoloL (INDERAL) 10 mg tablet Propranolol HCl Acti ve traZODone (DESYREL) 100 mg tablet 200 mg orally Active Active Problems Problem Noted Date Diagnosed Date Respiratory failure with hypoxia 09/13/2023 Diarrhea 03/08/2019 Generalized abdominal pain 03/08/2019 Heterozygous factor V Leiden mutation 02/20/2015 Overview (12/13/2017): Overview: Sample carries both alleles, one wild-type and one mutant (Factor V Leiden) allele. Surgical History Surgery Date Site/Laterality Comments TONSILLECTOMY/ADENOIDECTOMY with BMT KNEE ARTHROSCOPY Bilateral EYE SURGERY Left removal tumor left eye and titanium plate placed outside of left orbit 03/2017 BACK SURGERY 03/31/2017 - 04/29/2017 Medical History Medical History Date Comments Postlaminectomy syndrome of lumbar region L4-5 with right L4 radiculopathy Factor V Leiden no history of bl ood clots, no aspirin IBS (irritable bowel syndrome) Tobacco abuse 1 PPD, 15 pack y ear smoking history Anxiety and depression Factor V Leiden Lower back pain Hyperlipidemia Pneumonia Family History Medical History Relation Name Comments Hyperlipidemia Father Anesthesia problems Mother Atrial fibrillation Mother Diabetes Mother Factor V Leiden Mother Romeo's thyroiditis Mother Multiple sclerosis Mother Osteoarthritis Mother Rheum arthritis Mother Stroke Mother htn Mother Relation Name Status Comments Father Alive Mother Alive delayed emergen ce Social History Tobacco Use Types Packs/Day Years Used Date Smoking Tobacco: Every Day Cigarettes 1 15 Smokeless Tobacco: Never Tobacco Cessation:Ready to Q uit: Not Asked; Counseling Given: Not Answered Alcohol Use Standard Drinks/Week Comments No 0 [...] on file Legal Sex Male 12:34 AM COMMERCIAL COUNSEL Gender Identity Not on file Sexual Orientation Not on file Obstetrics History Last Filed Vital Signs Vital Sign Reading Time Taken Comments Blood Pressure 136/91 07/10/2024 11:09 AM CDT Pulse 96 07/10/2024 11:09 AM CDT Temperature 36.3 C (97.4 F) 09/13/2023 12:55 PM COMMERCIAL COUNSEL Respiratory Rate 16 06/10/2023 5:05 PM CDT Oxygen Saturation 98% 07/10/2024 11:09 AM CDT Inhaled Oxygen Concentration - - Weight 78.9 kg (174 lb) 07/10/2024 11:09 AM CDT Height 167.6 cm (5' 6) 07/10/2024 11:09 AM CDT Body Mass Index 28.08 07/10/2024 11:09 AM CDT Plan of Treatment Health Maintenance Due Date Last Done Comments Depression Screening 1984 Varicella Vaccines (1 of 2 - 13+ 2-dose series) 1997 Hepatitis B Screening 2002 Regular Well Visit/Exam 18-64 2002 HPV Vaccines (1 - 3-dose SCDM series) 2011 Covid-19 Vaccine (3 - season) 2025, 06/18/2021 Influenza Vaccine (#1) 2025 3, 11/12/2019, 11/12/2019 DTaP/Tdap/Td Vaccine (3 - Td or Tdap) 10/09/202607/2016, 08/29/2011 Pneumococcal vaccine <65 Completed 01/18/2023 Hepatitis C Screening Completed 07/05/2023 Goals Goal Patient Goal Type Associated Problems [...] lifestyle strategies and compensatory methods as needed Medical Devices Implanted Type Area Siebel Administrator Device Identifier Shelf Expiration Date Model / Serial / Lot Graft Bone Infuse Bovine Collagen Rhbmp-2 Large L26 Mm Od18 Mm 8 Ml Spine Absorbable Sponge Sterile Water Syringe Needle Lumbar Tapered Fusion Device - [id number] Implanted:Qty: 1 on 12/13/2017 by Nixon Dominguez MD at [facility] N/A: Spine Lumbar Medtronic Sofamor Danek [id number] 03/31/2019 [id number] / / [id number] Spacer Spinal Contact Option Vbr Peek [place] 4 D D23 Mm Convex W30 Mm X H14 Mm Anterior Lordosis Back Cutting Teeth Radiographic Verification 3 Insertion Hole Dark Blue - [id number] Implanted:Qty: 1 on 12/13/2017 by Nixon Dominguez MD at [facility] N/A: Spine Lumbar [employer] 03/27/2020 34-A30-14- 4 / / [id number] Plate 36mm Anterior Lumbar - [id number] Implanted:Qty: 1 on 12/13/2017 by Nixon Dominguez MD at [facility] N/A: Spine Lumbar [employer] 25-LP-36 / / Screw 25-60-24 - [id number] Implanted:Qty: 4 on 12/13/2017 by Nixon Dominguez MD at [facility] N/A: Spine Lumbar [employer] 25-60-24 / / Procedures Procedure Name Priority Date/Time Associated Diagnosis Comments HEPATITIS PANEL, ACUTE Routine 07/05/2023 4:06 PM CDT Positive CHONG (antinuclear antibody) from Last 3 Months or Most Recently Relevant to Health Maintenance Results * Hepatitis panel, acute Blood (07/05/2023 4:06 PM CDT) Hep A IgM Nonreactive Nonreactive Hep B core IgM Nonreactive [facility] Hep C Ab Nonreactive Nonreactive [facility] Comment:Antibodies to HCV no t detected. Does NOT exclude the possibility of recent exposure to HCV. Current interpretive data was last revised on 22 HepBsAg Nonreactive Nonreactive [facility] Blood 07/05/2023 4:06 PM CDT 07/05/2023 6:42 PM CDT Farzaneh Patel MD LAB MICROBIOLOGY - GENERAL ORDER JENNY Final Result [facility] Department [place] [address] from Last 3 Months or Most Recently Relevant to Health Maintenance Insurance [facility] MEDICARE ADVANTAGE [facility] MEDICARE Address: [id number] [place] [id number] [facility] MEDIC[facility] Address: [address] [address] [place] [address] Advance Directives For more information, please contact: [phone] Documents on File Type Date Recorded Patient Pearl Fisherman Expl anation ADVANCE DIRECTIVE 12/16/2017 8:03 AM POWER OF PRINTED CIRCUIT DESIGNER ADVANCE DIRECTIVE 12/13/2017 12:08 PM ADVANCE DIRECTIVE 12/13/2017 Advance Di rective Checklist * Full Code (Latest Code Status on File) Date Activated Date Inactivated Comments 12/13/2017 8:04 PM 12/14/2017 4:10 PM Care Teams Clerical And Office Support Workers Relationship Specialty Start Date End Date Isaac Lobo DO [address] [place] [id number] PCP - General Family Medicine 09/13/23 Isaac Brizuela MD [address] [place] [address] Pulmonary Disease 04/21/23 Jonna Garcia, RN Registered Nurse Pulmonary Disease 09/19/23
--- OUTSIDE RECORDS SUMMARY | 2025-08-19 18:46 | XMS_ITS | Encounter Summary ---
Author Organization [facility] Address [address] [facility] [place] [address] Care Team Providers Care Fiberglass Boat Maker Name Role Phone Isaac Lobo DO Primary Care Provider + Encounter Details Date Type Department Care Team (Late Contact Info) Description 06/06/2023 Lab Requisition [facility] - DermPath Lab [address] [facility], [facility] [place] [address] Khalida Wallis DO [address] [facility] [address] [place] [address] Social History Tobacco Use Types Packs/Day Years Used Date Smoking Tobacco: Every Day Cigarettes 1 15 Smokeless Tobacco: Never Alcohol Use Standard Drinks/Week Comments No 0 (1 standard drink = 0.6 oz pur e alcohol) Sex and Gender Information Value Date Recorded Sex Assigned at Not on file Legal 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 Male 5:39 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 Gender Identity Not on file Sexual Orientation Not on file documented as of this encounter Plan of Treatment Upcoming Encounters Date Type Department Care Team (Late Contact Info) Description 11/06/2025 10:20 AM DESIGN 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 Office Visit [facility] [address] [employer] [address] [facility] [address] [place] [phone] [place] [address] [facility] [address] [address] 02/06/2026 9:40 AM CDT Office Visit [facility] [address] [place] [address] [place] [address] [place] [address] documented as of this encounter Procedures Procedure Name Priority Date/Time Associated Diagnosis Comments IMMUNOFLUORESCENT STUDY DERM Routine 06/06/2023 12:00 AM CDT documented in this encounter Results * IMMUNOFLUORESCENT STUDY DERM (06/06/2023 12:00 AM CDT) Case Report Dermatopathol ogy Report Case: [id number] Authorizing Provider: Khalida Wallis DO Collected: 06/06/2023 12:00 AM Ordering Location: [facility] DermPath Lab Received: 06/06/2023 04:52 PM Pathologist: Vanessa Cox MD Specimen: Skin, right forearm perilesional 3 3:12 PM CDT DERMATOPATHOLOGY LABORATORY Final Diagnosis Specimen A. 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) (see microscopic description and comment) (see fixed tissue results [id number]) 3 3:12 PM CDT DERMATOPATHOLOGY LABORATORY at 1512 CDT Direct Immunofluorescence Report - Specimen A Specimen A IgA IgM IgG C3 CollV Fibrinogen Epidermis Negative Negative Negative Negative Negative Negative Basement Membrane Negative Negative Negative Negative 2+ Negative Vessels Negative Negative +1 Homogenous Focal 1+ Granular 2+ Negative Interstitium Negative Negative Negative Negative Negative Non specific 3 3:12 PM CDT DERMATOPATHOLOGY LABORATORY Clinical History LUPUS VS VASCULITIS VS BECHETS VS NEUTROPHILIC DERM VS PCT VS OTHER 3 3:12 PM CDT DERMATOPATHOLOGY LABORATORY Gross Description Specimen A: Received is one Rip's media filled container labeled with the patient's name and designated right forearm perilesional. The specimen consists of a punch biopsy measuring 4x4x4 mm. The specimen is submitted in whole for direct immunofluores cence testing. 3 3:12 PM CDT DERMATOPATHOLOGY LABORATORY Microscopic Description Specimen A. SKIN, right forearm perilesional: Controls were run in parallel. There are homogenous vascular deposits with IgG. There are granular vascular deposits with C3. Staining is negative with IgA and IgM. Collagen IV stains the basement membrane zone and vessels. Fibrinogen shows non-specific staining. 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 Recommend correlation with porphyrin studies. See fixed tissue results. 3 3:12 PM CDT DERMATOPATHOLOGY LABORATORY Disclaimer An external and internal positive and negative controls are appropriate for the histochemical , immunohistoch emical and immunofluores cence stain(s) in this case (if any), except where stated explicitly. The performance characteristi cs of the stain(s) cited in this report were developed and its performance characteristi c determined by the Dermatopathol ogy Laboratory at [facility], directed by Dr. Neo Aceves. These tests need not be, and therefore are not, approved by the [place] Food and Drug Administratio n. The tests are used for clinical purposes. Billing Codes Specimen Charges Stain Charges 51451 21039 31477 30491 87078 16800 1 1 1 1 1 1 3 3:12 PM CDT DERMATOPATHOLOGY LABORATORY Embedded Images 3 3:12 PM CDT DERMATOPATHOLOGY LABORATORY Pathology/Cytolog y TISSUE SPECIMEN FROM SKIN / Unknown 06/06/2023 06/06/2023 4:52 PM CDT us Khalida aWllis DO LAB - PATHOLOGY/CYTOLOGY ORDERABLES Final Result DERMATOPATHOLOGY LABORATORY [facility] - Department of Dermatology [facility] Medicine [address] [place] [address], [address] [phone] documented in this encounter Visit Diagnoses Not on filedocumented in this encounter Care Teams Fiberglass Boat Maker Relationship Specialty Start Date End Date Isaac Lobo DO [address] [place] [address] PCP - General Family Medicine Geriatric Medicine 02/17/23 documented as of this encounter
--- OUTSIDE RECORDS SUMMARY | 2025-08-19 18:46 | XMS_ITS | Encounter Summary ---
Author Organization [facility] Address [address] [facility] [place] [address] Care Team Providers Care Tool Repairer Bench Name Role Phone Isaac Lobo DO Primary Care Provider + Encounter Details Date Type Department Care Team (Late Contact Info) Description 09/14/2023 Lab Requisition [facility] - DermPath Lab [address] [facility], [facility] [place] [address] Khalida Wallis DO [address] [facility] [address] [place] [address] Social History Tobacco Use Types Packs/Day Years Used Date Smoking Tobacco: Every Day Cigarettes 2 15 Smokeless Tobacco: Never Alcohol Use Standard Drinks/Week Comments No 0 (1 standard drink = 0.6 oz pur e alcohol) PHQ-2 Answer Date Recorded Patient Health Questionnaire-2 Score 0 08/31/2023 Sex and Gender Information Value Date Recorded Sex Assigned at Not on file Legal Sex Male 5:39 AM PRESS CLEANER Gender Identity Not on file Sexual Orientation Not on file documented as of this encounter Plan of Treatment Upcoming Encounters Date Type Department Care Team (Late Contact Info) Description 11/06/2025 10:20 AM PRESS CLEANER Office Visit [place] [id number] [facility] [address] [place] [phone] [place] [address] [place] [address] 02/06/2026 9:40 AM CDT Office Visit [facility] [address] [place] [address] [place] [address] [place] [address] documented as of this encounter Procedures Procedure Name Priority Date/Time Associated Diagnosis Comments DERMATOPATHOLOGY Routine 09/14/2023 11:1 0 AM PRESS CLEANER documented in this encounter Results * DERMATOPATHOLOGY (09/14/2023 11:10 AM PRESS CLEANER) Case Report Dermatopathology Report Case: [id number] Authorizing Provider: Khalida Wallis DO Collected: 09/14/2023 11:10 AM Ordering Location: [facility] DermPath Lab Received: 09/15/2023 10:02 AM Pathologist: Kelley Cox MD Specimen: Skin, left back 3 2:56 PM [facility] DERMATOPATHOLOGY LABORATORY Final Diagnosis Specimen A. SKIN, left back: SUPERFICIAL AND DEEP PERIVASCULAR AND PERIADNEXAL LYMPHOCYTIC INFILTRATE (L93.0) (see microscopic description and comment) 3 2:56 PM [facility] DERMATOPATHOLOGY LABORATORY at 1456 PRESS CLEANER Clinical History Annular Polycidin plaques SCLE vs EM vs other 3 2:56 PM [facility] DERMATOPATHOLOGY LABORATORY Gross Description Specimen A: Received is one formalin filled container labeled with the patient's name and designated left back. The specimen consists of a(2) pieces punch biopsy measuring 4x4x5, 3x3x1 mm. Jar 0. 3 2:56 PM [facility] DERMATOPATHOLOGY LABORATORY Microscopic Description Specimen A. SKIN, left back: Sections show a lymphocytic infiltrate that only very focally obscures the dermal epidermal junction with vacuolar alteration. In addition, there is a superficial and deep perivascular and periadnexal infiltrate present. Focal mucin is seen. COMMENT: These findings are consistent with connective tissue disease in the correct clinical setting. A gyrate erythema is considered less likely given the presence of focal epidermal change and involvement of adnexal structures. 3 2:56 PM [facility] DERMATOPATHOLOGY LABORATORY Disclaimer An external and internal positive and negative controls are appropriate for the histochemical, immunohistochemical and immunofluorescence stain(s) in this case (if any), except where stated explicitly. The performance characteristics of the stain(s) cited in this report were developed and its performance characteristic determined by the Dermatopathology Laboratory at [facility], directed by Dr. Neo Aceves. These tests need not be, and therefore are not, approved by the [place] Food and Drug Administration. The tests are used for clinical purposes. Billing Codes Specimen Charges Stain Charges 74447 1 3 2:56 PM [facility] DERMATOPATHOLOGY LABORATORY Embedded Images 3 2:56 PM [facility] DERMATOPATHOLOGY LABORATORY Pathology/Cytolo gy TISSUE SPECIMEN FROM SKIN / Unknown 09/14/2023 11:10 AM PRESS CLEANER 09/15/2023 10:02 AM PRESS CLEANER Khalida Wallis DO LAB - PATHOLOGY/CYTOLOGY ORDERABLES Final Result DERMATOPATHOLOGY LABORATORY [facility] - Department of Dermatology [address], [address] [phone] documented in this encounter Visit Diagnoses Not on filedocumented in this encounter Care Teams Tool Repairer Bench Relationship Specialty Start Date End Date Isaac Lobo DO [address] [place] [address] PCP - General Family Medicine Geriatric Medicine 02/17/23 documented as of this encounter
--- OUTSIDE RECORDS SUMMARY | 2025-08-19 18:46 | XMS_ITS | Clinical Summary ---
Author Organization [facility] [place] Address [address] [place] [address] Care Team Providers Care Director Digital Sales Name Role Phone Isaac Lobo Trish BLAIR Primary Care Provider + Jake Barney MD Unavailable [phone] Allergies Active Allergy Reactions Criticality Noted Date Comments Amitriptyline Shortness of Breath High 01/06/2024 Amoxicillin-Pot Clavulanate Diarrhea 09/23/20 Bee Venom Anaphylaxis,Other (s ee Comments) High 02/23/2019 Doxycycline Other (see Comments) Low 12/08/2017 Meloxicam Unknown 11/05/2013 Rosuvastatin Rash Medium 06/22/2023 Sulfa Antibiotics Nausea 12/21/2005 Sulfasalazine Other (see Comments) 09/24/2016 Medications hydroxychloroqui ne (PLAQUENIL) 200 MG Tablet Take 1 Tablet by mouth daily. 09/21/2023 Active magnesium oxide (MAG-OX) 400 (240 Mg) MG Tablet Take 400 mg by mouth daily. 02/06/2024 Active traZODone (DESYREL) 100 MG Tablet Take 100 mg by mouth nightly. 05/16/2024 Active pramipexole (MIRAPEX) 0.5 MG Tablet Take 0.5 mg by mouth 3 times daily. 08/25/2021 Active celecoxib (CeleBREX) 200 MG Capsule Take 200 mg by mouth 2 times daily. 05/15/2024 Active EPINEPHrine (EPIPEN) 0.3 MG/0.3ML Solution Auto-injector 01/17/2020 Activ e baclofen (LIORESAL) 20 MG Tablet Take 20 mg by mouth 3 times daily. 02/03/2024 Active acetaminophen (TYLENOL) 500 MG Tablet Take 500 mg by mouth. Active ibuprofen (MOTRIN) 200 MG Tablet Take 800 mg by mouth. 02/25/2021 Active nicotine (NICODERM CQ) 21 MG/24HR PATCH 24 HR UNWRAP AND APPLY 1 PATCH TO THE SKIN DAILY 09/12/2023 Active Active Problems Problem Noted Date Diagnosed Date Heterozygous factor V Leiden mutation 02/20/2015 Overview (02/20/2015): Sample carries both alleles, one wild-type and one mutant (Factor V Leiden) allele. Immunizations Immunization Administration Dates Next Due Influenza Vaccine, Quadrivalent, PF 08/05/2023 Pneumococcal conjugate PCV20 , polysaccharide [id number] conjugate, adjuvant, PF 01/18/2023 TDAP Vaccine 08/29/2011 Family History Medical History Relation Name Comments Cancer Maternal Aunt Breast Cancer Maternal Grandmother Chronic Obstructive Pulmonary Disease Maternal Grandmo ther Lung Cancer Maternal Grandmother Prostate Cancer Maternal Uncle High Cholesterol Mother Hypertension Mother Stroke Mother Relation Name Status Comments Maternal Aunt Maternal Grandmother Maternal Uncle Mother factor v leiden Social History Tobacco Use Types Packs/Day Years Used Date Smoking Tobacco: Every Day Cigarettes 1 23 Started: 08/24/2002 Smokeless Tobacco: Never Tobacco Cessation:Ready to Q uit: Yes; Counseling Given: Yes Comments:declines Alcohol Use Standard Drinks/Week Comments Not Currently 0 (1 standard drink = 0.6 oz pur e alcohol) very rare Sex and Gender Information Value Date Recorded Sex Assigned at Not on file 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 Gender Identity Not on file Sexual Orientation Not on file Last Filed Vital Signs Vital Sign Reading Time Taken Comments Blood Pressure 126/90 08/15/2024 2:53 PM CDT Pulse 91 08/15/2024 2:53 PM CDT Temperature 36.9 C (98.4 F) 08/15/2024 2:53 PM CDT Respiratory Rate 18 08/15/2024 2:53 PM CDT Oxygen Saturation 97% 08/15/2024 2:53 PM CDT Inhaled Oxygen Concentration - - Weight 78 kg (171 lb 14.4 oz) 08/15/2024 2:53 PM CDT Height 167.6 cm (5' 6) 08/15/2024 2:53 PM CDT Body Mass Index 27.75 08/15/2024 2:53 PM CDT Plan of Treatment Health Maintenance Due Date Last Done Comments Hepatitis B Immunization (1 of 3 - 19+ 3-dose series) 2003 Human Papillomavirus (HPV) Immunization (1 - 3-dose SCDM series) 2011 Medicare Initial AWV [id number] 10/31/2024 Influenza Immunization (#1) 07/01/202503/2023, 11/12/2019 SARS-COV-2 Immunization (2024- season) 2025 09/12/2023, 07/16/2021, 06/18/2021 Td Immunization Every 10 Yea rs (Adults With 1 Tdap) 10/09/2026 10/09/2016, 08/29/2011 Respiratory Syncytial Virus (RSV) Immunization (Adult) (1 - 1-dose 75+ series) 2059 DTaP/Tdap/Td Immunization Discontinued 2015, 08/29/2011 Pneumococcal Immunization Combined Completed 01/18/2023 Hepatitis C Virus (HCV) Screening Completed 07/05/2023, 06/16/2023, 02/13/2015 Meningococcal Immunization (ACWY) Aged Out No longer eligible based on patient's age to complete this topic Rotavirus Immunization Aged Out No lo nger eligible based on patient's age to complete this topic Procedures Procedure Name Priority Date/Time Associated Diagnosis Comments HEPATITIS C ANTIBODY Routine 02/13/2015 5:42 PM CDT Patient exposure to body fluids from Last 3 Months or Most Recently Relevant to Health Maintenance Results * HEPATITIS C ANTIBODY (02/13/2015 5:42 PM CDT) hepatitis C antibody 0.06 <1 S/CO 02/13/2015 9:54 PM CDT [facility] Comment: Signal/Cutoff ratio < 0.79 is Nondetected Signal/Cutoff ratio 0.80-0.99 is Grayzone Signal/Cutoff ratio > 0.99 is Detected Supplemental assays are recommended if signal/cutoff ratio is >/=1.00. Signal/cutoff ratio result >/= 5.00 is 97% predictive of positivity for recombinant immunoblot assay (RIBA) and will be reported to the [place] Department of Public Health as required. Blood specimen (specimen) VENOUS STRUCTURE / Unknown Venipuncture / Unknown 02/13/2015 5:42 PM CDT 02/13/2015 5:43 PM CDT Primo Frey Jr., DO CHEMISTRY ORDERAB LES Final Result [facility] [address] [place] [address] from Last 3 Months or Most Recently Relevant to Health Maintenance Insurance MEDICARE C [facility] Care Teams Director Digital Sales Relationship Specialty Start Date End Date Isaac Lobo DO [address] [place] [id number] PCP - General Family Medicine 06/19/24 Jake [place] MD [address] [place] [id number] Consulting Physician Oncology 06/19/24
--- OUTSIDE RECORDS SUMMARY | 2025-08-19 18:46 | XMS_ITS | Encounter Summary ---
Author Organization [facility] Address [address] [place] [address] Care Team Providers Care Bank Analyst Name Role Phone Isaac Lobo DO Primary Care Provider + Encounter Details Date Type Department Care Team (Late Contact Info) Description 06/06/2023 Lab Requisition [facility] - DermPath Lab [address] [facility] [facility] [place] 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 [address] [place] [address] [place] [address] [place] [address] documented as of this encounter Procedures Procedure Name Priority Date/Time Associated Diagnosis Comments DERMATOPATHOLOGY Routine 06/06/2023 9:27 AM CDT documented in this encounter Results * DERMATOPATHOLOGY (06/06/2023 9:27 AM CDT) Case Report Dermatopathology Report Case: [id number] Authorizing Provider: Khalida Wallis DO Collected: 06/06/2023 09:27 AM Ordering Location: [facility] DermPath Lab Received: 06/06/2023 04:50 PM Pathologist: Vanessa Cox MD Specimen: Skin, right forearm 3:11 PM CDT DERMATOPATHOLOGY LABORATORY Final Diagnosis Specimen A. SKIN, right forearm: HEALING SKIN CHANGES WITH DERMAL FIBROSIS (L90.5) ULCER WITH SUPERFICIAL DERMAL NECROSIS (L98.499) (see microscopic description and comment) (see direct immunofluorescence results [id number]) 3:11 PM CDT DERMATOPATHOLOGY LABORATORY at 1511 CDT Clinical History LUPUS VS VASCULITIS VS BECHETS VS NEUTROPHILIC DERM VS PCT VS OTHER 3:11 PM CDT DERMATOPATHOLOGY LABORATORY Gross Description Specimen A: Received is one formalin filled container labeled with the patient's name and designated right forearm. The specimen consists of a punch biopsy measuring 4x4x5 mm. Jar 0. 3:11 PM CDT DERMATOPATHOLOGY LABORATORY Microscopic Description Specimen A. SKIN, right forearm: There is epidermal hyperplasia with adjacent ulceration beneath which there are vascular proliferation, fibroblasts, and an edematous stroma. Focal dermal fibrosis is present. There is an associated superficial and mid perivascular and interstitial infiltrate composed of lymphocytes, histiocytes, and rare neutrophils. Eosinophils are not seen. Vasculitis is not appreciated. Periodic acid-Phillip (PAS) stain shows reveals focal thickening of superficial dermal vasculature; however, fails to highlight fungal elements in the available sections. Tissue Gram stain is negative for bacteria in the sections examined. COMMENT: The overall histologic features are somewhat nonspecific, and can be seen in association with ulceration and healing skin changes; however, porphyria was also considered given the direct immunofluorescence findings. In addition, an infectious process cannot be excluded despite negative special stains for microorganisms. Clinical correlation with porphyrin studies and culture is recommended if clinically indicated. See direct immunofluorescence results. 3 3:11 PM CDT DERMATOPATHOLOGY LABORATORY Disclaimer An external and internal positive and negative controls are appropriate for the histochemical, immunohistochemical and immunofluorescence stain(s) in this case (if any), except where stated explicitly. The performance characteristics of the stain(s) cited in this report were developed and its performance characteristic determined by the Dermatopathology Laboratory at [facility], directed by Dr. Neo Aceves. These tests need not be, and therefore are not, approved by the [place] Food and Drug Administration. The tests are used for clinical purposes. Billing Codes Specimen Charges Stain Charges 00875 1 28819 85228 93047 1 1 1 3 3:11 PM CDT DERMATOPATHOLOGY LABORATORY Embedded Images 3 3:11 PM CDT DERMATOPATHOLOGY LABORATORY Pathology/Cytolo gy TISSUE SPECIMEN FROM SKIN / Unknown 06/06/2023 9:27 AM CDT 06/06/2023 4:50 PM CDT Khalida Wallis DO LAB - PATHOLOGY/CYTOLOGY ORDERABLES Final Result DERMATOPATHOLOGY LABORATORY [facility] - Department of Dermatology [facility] [address] [place] [address], [address] [place] [address], [facility] [phone] documented in this encounter Visit Diagnoses Not on filedocumented in this encounter Care Teams Bank Analyst Relationship Specialty Start Date End Date Isaac Lobo DO [address] [place] [address] PCP - General Family Medicine Geriatric Medicine 02/17/23 documented as of this encounter
--- OUTSIDE RECORDS SUMMARY | 2025-08-19 18:47 | XMS_ITS | Patient Health Record ---
Author Organization [facility] Address [address] [place] [address] Care Team Providers Care Organ Pipe Finisher Name Role Phone DELVIN DANG Unavailable [phone] Allergies Allergen (clinical drug ingredient) Drug/Non Drug Allergy documented on EMR Reaction Allergy Type Onset Date Status Biaxin Unknown Drug Allergy Active Keflex Unknown Drug Allergy Active meloxicam Mobic Unknown Drug Allergy Active Bee Sting Unknown Allergy Active Medicinal cephalosporin and acting as antibacterial agent (FN) Cephalosporins Unknown Drug Allergy Active erythromycin Erythromycin Unknown Drug Allergy A ctive Macrolides and Ketolides Unknown Drug Allergy Active Medicinal quinolone and acting as antibacterial agent (FN) Quinolones Unknown Drug Allergy Active Substance with sulfonamide structure and antibacterial mechanism of action (substance) Sulfa Antibiotics Unknown Drug Allergy Active Reason For Referral No Information Medications Medication SIG (Take, Route, Frequency, Duration) Notes Start Date End Date Status Doxepin HCl Unknown oxyCODONE-Acetaminophen 7.5-325 MG 1 tablet as needed Orally every 6 hrs; Duration: 28 days 10/27/2022 Active Amitriptyline HCl Un known Percocet Unknown Baclofen 10 MG 1 tablet as needed Orally Three times a day; Duration: 30 days 11/03/2021 Unknown Gabapentin 300 MG 1 capsule Orally mckenna ry 8 hours; Duration: 30 day(s) 10/27/2022 Active Propranolol HCl Unkn own DULoxetine HCl Unkno wn Ibuprofen Unknown Baclofen Unknown Social History Tobacco Use: Social History Observation Description Date Details (start date - stop date) Current Smoker NA - NA Tobacco Use/Smoking Question Answer Notes Are you a current smoker How often do you smoke cigarettes? every day How many cigarettes a day do you smoke? 21-30 Alcohol Screen (Audit-C) Question Answer Notes Did you have a drink containing alcohol in the p ast year? No Points 0 Interpretation Negative Tobacco use other than smoking: Question Answer Notes Are you an other tobacco user? 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) Active confirmed Problem Lumbar spondylosis (413594640) Lumbar spondylosis (M47.816) Active confirmed Problem Sacroiliitis (90734783) Sacroiliitis (M46.1) Active confirmed Problem Pain in right foot (615198616100362 ) Right foot pain (M79.671) Active confirmed Problem Backache (799246227) Back pain, unspecified back location, unspecified back pain laterality, unspecified chronicity (M54.9) Active confirmed Problem Complex regional pain syndrome, type II, upper limb (773774005) Complex regional pain syndrome type 2, affecting unspecified site (G56.40) Active confirmed Plan Of Treatment Pending Test Test Name Order Date X ray : LS Spine 06/09/2022 CT Scan : L-S Spine W/O Contrast 022 Anticonvulsant 07/07/2022 Anticonvulsant 05/12/2022 Anticonvulsant 10/27/2022 Anticonvulsant 09/04/2021 Anticonvulsant 12/16/2021 Anticonvulsant 03/17/2022 Anticonvulsant 04/14/2022 TCA 09/04/2021 Alcohol 09/04/2021 Alcohol 12/16/2021 Alcohol 03/17/2022 Alcohol 04/14/2022 Alcohol 10/27/2022 Alcohol 05/12/2022 Alcohol 07/07/2022 Validity 10/27/2022 Validity 07/07/2022 Validity 05/12/2022 Validity 04/14/2022 Validity 03/17/2022 Validity 09/04/2021 Validity 12/16/2021 High Risk Urine Tox Profile 12/16/2021 High Risk Urine Tox Profile 09/04/2021 High Risk Urine Tox Profile 03/17/2022 High Risk Urine Tox Profile 04/14/2022 High Risk Urine Tox Profile 05/12/2022 High Risk Urine Tox Profile 07/07/2022 High Risk Urine Tox Profile 10/27/2022 Insurance Providers Payer Name Payer Address Payer Phone Subscriber Number Group Number Insured Name Patient Relationship to Insured Coverage Start Date Coverage End Date [employer] MEDICARE [address] [place] [id number] Self - patient is the insured 1 Medical (General) History Medical History History ICD Code IBS ANXIETY DEPRESSION FACTOR V LEIDEN CRP Surgical History Surgery Date(Month/Year) 3 KNEE SCOPES ON RIGHT KNEE TONSILLECTOMY ADENOIDECTOMY SPINAL FUSION @ L4-L5
--- OUTSIDE RECORDS SUMMARY | 2025-08-19 18:47 | XMS_ITS | Patient Health Record ---
Author Organization [facility] Address [address] [facility] [address] [place] [address] Care Team Providers Care Assault Boat Coxswain Name Role Phone Jcarlos Granger Unavailable [phone] Reason For Referral No Information Medications Medication SIG (Take, Route, Frequency, Duration) Notes Start Date End Date Status Hyoscyamine Sulfate 0.125 MG Tablet Oral Active Fetzima 40 MG Capsule Extended Release 24 Hour Oral Act millie [place] Carbonate 150 MG Capsule Oral Active lamoTRIgine 25 MG Tablet Oral Active Ibuprofen 800 MG Tablet Oral Active predniSONE 10 MG Tablet Oral Active Diclofenac Sodium 75 MG Tablet Delayed Release Oral Activ e traMADol HCl 50 MG Tablet Oral Active Gabapentin 300 MG Capsule Oral Active Escitalopram Oxalate 10 MG Tablet Oral Active Escitalopram Oxalate 20 MG Tablet Oral Active DULoxetine HCl 30 MG Capsule Delayed Release Particles Oral Active Plan Of Treatment No Information
--- OUTSIDE RECORDS SUMMARY | 2025-08-19 18:47 | XMS_ITS | Clinical Summary ---
Author Organization [facility] Address [address] [place] [address] Care Team Providers Care Ballistics Professor Name Role Phone Isaac Lobo DO Primary Care Provider + Source Comments [facility],non-owned Affiliates and Associated Physician Practices is amultiple site organization consisting of ambulatory clinics and hospital sitesin [place], [place], [place] and [place]. This disclosure is being madepursuant to the Care Everywhere program and may not contain all information available regarding this patient. Last updated 18.[facility] Allergies Active Allergy Reactions Criticality Noted Date Comments Amitriptyline Shortness of Breath High 01/06/2024 Amoxicillin-Pot Clavulanate Diarrhea 09/23/20 Bee Venom Anaphylaxis High 04/12/2019 Rosuvastatin Rash Medium 06/22/2023 Sulfa Antibiotics Nausea and/or Vomiting,Unknown Low 12/21/2005 Sulfa Drugs Nausea and/or Vomiting Low 09/24/2016 Sulfacetamide Urticaria Medium 09/13/2023 Medications * Be aware that medications may not be up to date on this document. Alwaysverify current medications with the patient. ibuprofen (Motrin) 200 MG tablet Take 4 (four) tablets by mouth 2 times daily as needed Active vitamin D, ergocalciferol, (Drisdol) 1.25 MG (90350 UT) capsule Take 1 (one) capsule by mouth every 7 days 10/20/2022 Active pramipexole (Mirapex) 0.5 MG tablet Take 1 (one) tablet by mouth 3 times daily 90 tablet 3 12/30/2022 Active MULTIPLE VITAMINS PO Take 1 tablet by mouth once daily Active ascorbic acid (Vitamin C) 500 MG tablet Take 1 (one) tablet by mouth once daily Active mometasone (Elocon) 0.1 % ointment 09/14/2023 Active omeprazole (PriLOSEC) 40 MG capsule as needed 06/01/2023 Active acetaminophen (Tylenol) 500 MG tablet Take 1 (one) tablet by mouth every 6 hours as needed Active traZODone (Desyrel) 100 MG tablet 200 mg orally Active hydroxychloroqu ine (Plaquenil) 200 MG tablet 1 tab(s) orally once a day 09/21/2023 Active baclofen (Lioresal) 20 MG tablet 02/03/2024 Active celecoxib (CeleBREX) 200 MG capsule Take 1 (one) capsule by mouth once daily 05/15/2024 Active clobetasol (Temovate) 0.05 % ointment APPLY TO SPOTS TWICE DAILY FOR 7 TO 14 DAYS THEN NEEDED 06/12/2024 Active EPINEPHrine (Epipen) 0.3 MG/0.3ML auto-injector pen 07/12/2022 Active famotidine (Pepcid) 20 MG tablet 05/02/2023 Active diazePAM (Valium) 5 MG tablet Take 1 (one) tablet by mouth once daily 10 tablet 06/04/2025 Active Vraylar 1.5 MG capsule 07/31/2025 Active lamoTRIgine (LaMICtal) 25 MG tablet Oral Active levomilnacipran ER (Fetzima) 40 MG capsule Oral Active Active Problems Problem Noted Date Diagnosed Date SOB (shortness of breath) 08/31/2023 RLS (restless legs syndrome) 03/17/2023 Moderate episode of recurrent major depressive d isorder 01/19/2023 11/14/2023 Chronic allergic conjunctivitis 01/18/2023 11/14/2023 Class 1 obesity due to exces s calories with serious comorbidity and body mass index (BMI) of 31.0 to 31.9 in adult 01/18/2023 11/14/2023 Complex regional pain syndro me type 1 of right lower extremity 12/30/2021 11/14/2023 Overview (11/14/2023): Added automatically from request for surgery [id number] S/P insertion of spinal cord stimulator 12/31/19 22 11/14/2023 Overview (11/14/2023): Added automatically from request for surgery [id number] Added automatically from request for surgery [id number] IBS (irritable bowel syndrome) 06/15/2018 0 11/14/2023 Anxiety and depression 06/12/2018 Weakness of right lower extremity 09/24/2016 Sciatica of right side 09/24/2016 Osteoarthritis of spine with radiculopathy, lumbosacral region 09/24/2016 Heterozygous factor V Leiden mutation 02/20/2015 11/14/2023 Overview (11/14/2023): Overview: Sample carries both alleles, one wild-type and one mutant (Factor V Leiden) allele. Sample carries both alleles, one wild-type and one mutant (Factor V Leiden) allele. Overview: Sample carries both alleles, one wild-type and one mutant (Factor V Leiden) allele. Overview: Overview: Sample carries both alleles, one wild-type and one mutant (Factor V Leiden) allele. Sample carries both alleles, one wild-type and one mutant (Factor V Leiden) allele. Overview: Sample carries both alleles, one wild-type and one mutant (Factor V Leiden) allele. Encounters Date Type Department Care Team Description 08/19/2025 Telephone [facility] [place] [address] [place] [phone] Yazan Lozano MD Hospital Follow-up; Update 08/01/2025 12:40 PM CDT Office Visit [address] [phone] Yazan Lozano MD Complex regional pain syndrome type 1 of both lower extremities (Primary Dx); Memory loss; Chronic pain syndrome 08/01/2025 Travel 06/07/[address] [phone] Yazan Lozano MD Concerns; Question 06/04/[address] [phone] Yazan Lozano MD MEDICATION REFILL 05/30/2025 10:54 AM CDT - 05/30/2025 11:59 PM CDT Hospital Encounter [facility] - Electrophysiology [address] [place] [address] Yazan Lozano MD Discharge Disposition: Home or Self Care 05/28/[address] [phone] Yazan Lozano MD Update; Question 05/22/2025 12:00 PM CDT Office Visit [address] [phone] Yazan Lozano MD Lumbosacral radiculopathy (Primary Dx); Complex regional pain syndrome type 1 of both lower extremities; Memory loss; Chronic pain syndrome 05/22/2025 Travel from Last 3 Months Immunizations Immunization Administration Dates Next Due INFLUENZA VACCINE 11/12/2019 INFLUENZA VACCINE, QUADR. (F LUZONE; FLULAVAL; FLUARIX; AFLURIA QUADRIVALENT; 6MO+), 0.5 ML (IIV4) 08/05/2023 PNEUMOCOCCAL PCV20 CONJ VAC IM 01/18/2023 TDAP (7yrs+) 10/09/2016,08/29/2011 Family History Medical History Relation Name Comments Arthritis Mother Diabetes - Type 2 Mother High Blood Pressure Mother Rashes/Skin Problems Mother Stroke Mother Thyroid Disease Mother Relation Name Status Comments Father Alive Mother Alive Social History Tobacco Use Types Packs/Day Years Used Date Smoking Tobacco: Every Day Cigarettes 2 15 Smokeless Tobacco: Never Tobacco Cessation:Ready to Q uit: Not Asked; Counseling Given: Not Answered Comments:2 packs daily Alcohol Use Standard Drinks/Week Comments No 0 (1 standard drink = 0.6 oz pur e alcohol) PHQ-2 Answer Date Recorded Patient Health Questionnaire-2 Score 2 07/03/2024 Sex and Gender Information Value Date Recorded Sex Assigned at Not on file 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 Gender Identity Not on file Sexual Orientation Not on file Last Filed Vital Signs Vital Sign Reading Time Taken Comments Blood Pressure 130/90 08/01/2025 12:44 PM CDT Pulse 82 08/01/2025 12:44 PM CDT Temperature 36.8 C (98.2 F) 07/03/2024 10:47 AM CDT Respiratory Rate 16 08/01/2025 12:44 PM CDT Oxygen Saturation 98% 08/01/2025 12:44 PM CDT Inhaled Oxygen Concentration - - Weight 77.6 kg (171 lb) 08/01/2025 12:44 PM CDT Height 167.6 cm (5' 6) 08/01/2025 12:44 PM CDT Body Mass Index 27.6 08/01/2025 12:44 PM CDT Plan of Treatment Upcoming Encounters Date Type Department Care Team (Late st Contact Info) Description 11/06/2025 10:20 AM EDDY CURRENT INSPECTOR Office Visit [address] [place] [phone] [place] [address] [address] [facility] [place] [address] 02/06/2026 9:40 AM CDT Office Visit [address] [place] [phone] [place] [address] [address] [place] [phone] Health Maintenance Due Date Last Done Comments HIV SCREENING 1999 HEPATITIS B VACCINE (1 of 3 - 19+ 3-dose series) 2003 HPV VACCINE (1 - 3-dose SCDM series) 2011 DEPRESSION SCREENING 10/31/2024 05/17/2024, 08/31/20 23 MEDICARE AWV CALENDAR YEAR 2024 COVID-19 VACCINE (1 - season) 2025 INFLUENZA VACCINE (#1) 2025 08/05/2023, 2019 DTAP/TDAP/TD VACCINES (3 - Td or Tdap) 10/09/2026 10/09/2016, 08/29/2011 SCREENING FOR DIABETES 05/24/2027 05/24/2024 LIPID TESTING 07/22/2028 07/22/2023, 06/10/2023 ZOSTER VACCINE (1 of 2) 2034 PNEUMOCOCCAL VACCINE Completed 01/18/2023 HEPATITIS C SCREENING Completed 07/05/2023 , 06/16/2023, 06/16/2023, Additional history exists HIB VACCINE Aged Out No longer eligi ble based on patient's age to complete this topic MENINGOCOCCAL (Group B) VACCINE SHARED DECISION-MAKING Aged Out No longer eligible based on patient's age to complete this topic MENINGOCOCCAL GROUPS A/C/Y/W VACCINE Aged Out No longer eligible based on patient's age to complete this topic Procedures Procedure Name Priority Date/Time Associated Diagnosis Comments EEG Routine 05/30/2025 5:22 PM CDT Memory loss COMPREHENSIVE METABOLIC PANEL Routine 05/24/2024 12:52 PM CDT Heterozygous factor V Leiden mutation Polyarthralgia from Last 3 Months or Most Recently Relevant to Health Maintenance Results * EEG (05/30/2025 5:22 PM CDT) Narrative [facility] - 05/30/2025 5:22 PM CDT Royce Narvaez MD 05/30/2025 5:22 PM [facility] - ELECTROPHYSIOLOGY [id number] [place] [id number] Electroencephalogram Sahil Arroyo 05/30/2025 Indication: Sahil Arroyo is a 39 year old male who presents with memory changes. Medications[1] Procedure: Pt is awake and drowsy during the recording. A 16 channel EEG was performed in the International 10-20 system. One lead of EKG records a regular rate of 73 bpm. The technical quality is good.The background rhythm is alpha in the range of 8-9 hertz, with faster beta activity present anteriorly. Voltages range from 20-75 microvolts. Hyperventilation was not performed and photic stimulation produced no abnormal responses. There are no epileptiform discharges identified. Sleep was attempted. Impression: This is a normal electroencephalogram. Please note that a normal EEG cannot exclude a seizure disorder. If strongly suspected, further study may be performed with a sleep-deprived or extended EEG. Royce Narvaez MD [1] Current Outpatient Medications Medication acetaminophen (Tylenol) 500 MG tablet ascorbic acid (Vitamin C) 500 MG tablet baclofen (Lioresal) 20 MG tablet celecoxib (CeleBREX) 200 MG capsule clobetasol (Temovate) 0.05 % ointment diazePAM (Valium) 5 MG tablet EPINEPHrine (Epipen) 0.3 MG/0.3ML auto-injector pen famotidine (Pepcid) 20 MG tablet hydroxychloroquine (Plaquenil) 200 MG tablet ibuprofen (Motrin) 200 MG tablet mometasone (Elocon) 0.1 % ointment MULTIPLE VITAMINS PO omeprazole (PriLOSEC) 40 MG capsule pramipexole (Mirapex) 0.5 MG tablet traZODone (Desyrel) 100 MG tablet vitamin D, ergocalciferol, (Drisdol) 1.25 MG (50036 UT) capsule No current facility-administered medications for this encounter. us Yazan Lozano MD NEUROLOGY ORDERABLES Final Res ult [facility] * (ABNORMAL) COMPREHENSIVE METABOLIC PANEL (05/24/2024 12:52 PM CDT) Glucose 117(H) 70 - 99 mg/dL [facility] INSURANCE BILL BUN 9 6 - 20 mg/dL [facility] INSURANCE BILL Creatinine 0.82 0.76 - 1.27 mg/dL [facility] INSURANCE BILL eGFR by CKD-EPI 115 >59 mL/min/1.7 3 [facility] INSURANCE BILL BUN/Creatinine Ratio 11 9 - 20 [facility] INSURANCE BILL Sodium 133(L) 134 - 144 mmol/L [facility] INSURANCE BILL Potassium 4.6 3.5 - 5.2 mmol/L [facility] INSURANCE BILL Chloride 96 96 - 106 mmol/L [facility] INSURANCE BILL CO2 22 20 - 29 mmol/L [facility] INSURANCE BILL Calcium 9.8 8.7 - 10.2 mg/dL [facility] INSURANCE BILL Protein Total 7.2 6.0 - 8.5 g/dL [facility] INSURANCE BILL Albumin 4.8 4.1 - 5.1 g/dL [facility] INSURANCE BILL Globulin Total 2.4 1.5 - 4.5 g/dL [facility] INSURANCE BILL Bilirubin Total <0.2 0.0 - 1.2 mg/dL [facility] INSURANCE BILL Alkaline Phosphatase 142(H) 44 - 121 IU/L [facility] INSURANCE BILL AST 26 0 - 40 IU/L [facility] INSURANCE BILL ALT 23 0 - 44 IU/L [facility] INSURANCE BILL Comment:FASTING Blood BLOOD SPECIMEN / Unknown 05/24/2024 12:52 PM CDT 05/24/2024 Narrative Resulting Agency Comment Lab Testing performed at: [facility] [address] [facility] [id number] Alejandro Miranda MD LAB - CHEMISTRY ORDERABLES Final Result [facility] INSURANCE BILL [address] [place] [phone] from Last 3 Months or Most Recently Relevant to Health Maintenance Insurance [facility] MANAGED MEDICARE ADV Care Teams Ballistics Professor Relationship Specialty Start Date End Date Isaac Lobo DO [address] [place] [id number] PCP - General Family Medicine Geriatric Medicine 02/17/23
--- OUTSIDE RECORDS SUMMARY | 2025-08-19 18:47 | XMS_ITS | Encounter Summary ---
Author Organization [facility] Address [address] [place] [address] Care Team Providers Care Junior Net Developer Name Role Phone Isaac Lobo DO Primary Care Provider + Reason for Visit * Reason Onset Date Comments Hospital Follow-up 08/19/2025 Update 08/19/2025 Encounter Details Date Type Department Care Team (Late st Contact Info) Description 08/19/2025 Telephone [facility] [phone] [phone] [place] [address] [address] Hospital Follow-up; Update Social History Tobacco Use Types Packs/Day Years Used Date Smoking Tobacco: Every Day Cigarettes 2 15 Smokeless Tobacco: Never Comments:2 packs daily Alcohol Use Standard Drinks/Week Comments No 0 (1 standard drink = 0.6 oz pur e alcohol) PHQ-2 Answer Date Recorded Patient Health Questionnaire-2 Score 2 07/03/2024 Sex and Gender Information Value Date Recorded Sex Assigned at Not on file 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 Lozano that pt had a seizure episode today and was transported to [facility] in [facility]. Pt mom stated pt was sitting in a chair and went o get up and collapsed to the floor face first, seizure lasted 1-2 min. I informed pt mom I would send a message to Dr. Lozano informing him of this and gave our fax number, to fax all notes from emergency room at [facility]. Pt mom verbalized understanding. documented in this encounter Plan of Treatment Upcoming Encounters Date Type Department Care Team (Late st Contact Info) Description 11/06/2025 10:20 AM TOILET AND LAUNDRY SOAP SUPERVISOR Office Visit [address] [phone] [place] [address] [place] [phone] 02/06/2026 9:40 AM CDT Office Visit [address] [phone] [place] [address] [place] [phone] documented as of this encounter Visit Diagnoses Not on filedocumented in this encounter Care Teams Junior Net Developer Relationship Specialty Start Date End Date Isaac Lobo DO [address] [place] [phone] PCP - General Family Medicine Geriatric Medicine 02/17/23 documented as of this encounter
--- OUTSIDE RECORDS SUMMARY | 2025-08-19 18:47 | XMS_ITS | Patient Health Record ---
Author Organization Formerly [facility] [place] ([address]) Address [address] [place] [address] Care Team Providers Care Protection Analyst Name Role Phone Isaac Lobo Primary Care Provider Estrella Thornton Unavailable [phone] Allergies Allergen (clinical drug ingredient) Drug/Non Drug Allergy documented on EMR Reaction Allergy Type Onset Date Status KEFLEX (uncoded) unknown reaction Allergy Active KETOLIDE (uncoded) unknown reaction Allergy Active MACROLIDES (uncoded) unknown reaction Allergy Active MOBIC (uncoded) unknown reaction Allergy Active Medicinal quinolone and acting as antibacterial agent (FN) QUINOLONE (uncoded) unknown reaction Allergy Active erythromycin Erythromycin unknown reaction Drug Allergy Active Sulfamethoxazole unknown reaction Drug Allergy Active Reason For Referral No Information Medications Medication SIG (Take, Route, Frequency, Duration) Notes Start Date End Date Status Pramipexole Dihydrochloride 0.5 MG 1 tab(s) orally 3 times a day; Duration: 30 day(s) takes one tablet daily Active traZODone HCl 100 MG 200 mg orally Active Hydroxychloroquine Sulfate 200 MG 1 tab(s) orally once a day Active Celecoxib 200 MG 1 capsule with food Orally Once a day Active EPINEPHrine 0.3 MG/0.3ML as directed Injection 1 Active ZyrTEC Allergy 10 MG 1 tab(s) orally once a day Active Baclofen 10 MG 1 tab(s) orally 3 times a day; Duration: 30 day(s) Active Social History Tobacco Use: Social History Observation Description Date Details (start date - stop date) Current Smoker NA - NA Sex Assigned At : Social History Observation Description Sex Assigned At Male Smoking Smart Form: Question Answer Notes Are you a: current smoker When did you start smoking? 12/01/2001 How many cigarettes a day do you smoke? 11-20 How soon after you wake up do you smoke your fir st cigarette? within 5 min Are you interested in quitting? Not ready to danie t Tobacco Control (Standard) Question Answer Notes Tobacco use: Current smoker AUDIT-C (Standard) Question Answer Notes Did you have a drink containing alcohol in the p ast year? 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 Problem Anxiety disorder (902734007) Anxiety disorder, unspecified (F41.9) Active confirmed Problem Chronic allergic conjunctivitis (81608963) Other chronic allergic conjunctivitis (H10.45) Active confirmed Problem Allergic rhinitis caused by pollen (disorder) (02658708) Allergic rhinitis due to pollen (J30.1) Active confirmed Problem Allergic rhinitis (54586918) Other allergic rhinitis (J30.89) Active confirmed Problem Allergy to bee venom (986103838) 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) Active confirmed Problem Allergy to insect allergen (616773259) Other insect allergy status (Z91.038) Active confirmed Problem Allergic rhinitis caused by animal hair and dander (565184870680022) Allergic rhinitis due to animal (cat) (dog) hair and dander (J30.81) Active confirmed Problem Allergic urticaria (80335117) Allergic urticaria (L50.0) Active confirmed Problem Irritable bowel syndrome (17008727) Other irritable bowel syndrome (K58.8) Active confirmed Problem Allergy status t o other drugs, medicaments and biological substances (Z88.8) Active confirmed Vital Signs Oximetry 98 % 05/01/2025 Blood pressure diastolic 76 mm Hg 05/01/2025 Height 64 in 05/01/2025 Blood pressure systolic 119 mm Hg 05/01/2025 Weight 172.8 lbs 05/01/2025 BMI 29.66 kg/m2 05/01/2025 Encounters Encounter Location Date Provider Diagnosis [facility] [address] [address] 06/26/2025 Estrella Nacho Bee allergy status Z91.030 and Other insect allergy status Z91.038 [facility] [address] [place] [address] 05/29/2025 Estrella Nacho Bee allergy status Z91.030 and Other insect allergy status Z91.038 [facility] [address] [place] [address] 03/06/2025 Estrella Nacho Bee allergy status Z91.030 and Other insect allergy status Z91.038 [facility] [address] [place] [address] 02/13/2025 Estrella Nacho Bee allergy status Z91.030 and Other insect allergy status Z91.038 [facility] [address] [place] [address] 01/14/2025 Estrella Nacho Bee allergy status Z91.030 and Other insect allergy status Z91.038 [facility] [address] [place] [address] 07/24/2025 Estrella Nacho Bee allergy status Z91.030 and Other insect allergy status Z91.038 [facility] [address] [place] [address] 04/04/2025 Estrella Nacho Bee allergy status Z91.030 and Other insect allergy status Z91.038 [facility] [address] [place] [address] 10/17/2024 Estrella Nacho Bee allergy status Z91.030 and Other insect allergy status Z91.038 [facility] [address] [place] [address] 09/04/2024 Estrella Nacho Bee allergy status Z91.030 and Other insect allergy status Z91.038 [facility] [address] [place] [address] 05/01/2025 Estrella Nacho Allergic urticaria L50.0 ; Allergic rhinitis due to pollen J30.1 ; Bee allergy status Z91.030 ; Other insect allergy status Z91.038 ; Allergic rhinitis due to animal (cat) (dog) hair and dander J30.81 ; Other allergic rhinitis J30.89 ; Other chronic allergic conjunctivitis H10.45 and Allergy status to other drugs, medicaments and biological substances Z88.8 [facility] [address] [place], [place] [address] [address] [address] 11/21/2024 Estrella Griffith Allergic urticaria L50.0 ; Bee allergy status Z91.030 ; Other insect allergy status Z91.038 ; Allergic rhinitis due to pollen J30.1 ; Allergic rhinitis due to animal (cat) (dog) hair and dander J30.81 ; Other allergic rhinitis J30.89 ; Other chronic allergic conjunctivitis H10.45 and Allergy status to other drugs, medicaments and biological substances Z88.8 [facility] [address] [place], [place] [address] [address] [address] 12/17/2024 Estrella Griffith Bee allergy status Z91.030 and Other insect allergy status Z91.038 [facility] [address] [place], [place] [address] [address] [address] 02/06/2025 Estrella Griffith Allergic urticaria L50.0 ; Allergic rhinitis due to pollen J30.1 ; Bee allergy status Z91.030 ; Other insect allergy status Z91.038 ; Allergic rhinitis due to animal (cat) (dog) hair and dander J30.81 ; Other allergic rhinitis J30.89 ; Other chronic allergic conjunctivitis H10.45 and Allergy status to other drugs, medicaments and biological substances Z88.8 [facility] [address] [place], [place] [address] [address] [address] 04/02/2025 Estrella Griffith [facility] [address] [place], [place] [address] [address] [address] 04/02/2025 Estrella Griffith [address] [address] 08/07/2025 Estrella [address] [address] [address] 01/14/2025 Estrella Griffith [facility] [address] [facility] [address] [place] [address] 11/21/2024 Estrella Griffith Assessments Encounter Date Diagnosis (ICD Code) Assessment Notes Treatment Notes Treatment Clinical Notes Section Notes 09/04/2024 Bee allergy status (ICD-10 - Z91.030) 09/04/2024 Other insect allergy status (ICD-10 - Z91.038) 10/17/2024 Bee allergy status (ICD-10 - Z91.030) 10/17/2024 Other insect allergy status (ICD-10 - Z91.038) 11/21/2024 Allergic urticaria (ICD-10 - L50.0) History of venom anaphylaxis and tolerating immunotherapy well. He denies any large local or systemic symptoms with immunotherapy. Plan to complete 5 years of therapy. EpiPen to be available at all times. Instructed on proper use of the device. Sahil started venom immunotherapy in [place] 11/21/2024 Bee allergy status (ICD-10 - Z91.030) 12/17/2024 Bee allergy status (ICD-10 - Z91.030) 12/17/2024 Other insect allergy status (ICD-10 - Z91.038) 01/14/2025 Bee allergy status (ICD-10 - Z91.030) 01/14/2025 Other insect allergy status (ICD-10 - Z91.038) 02/06/2025 Allergic urticaria (ICD-10 - L50.0) History of venom anaphylaxis and tolerating immunotherapy well. He denies any large local or systemic symptoms with immunotherapy. Plan to complete 5 years of therapy. EpiPen to be available at all times. Instructed on proper use of the device. Sahil started venom immunotherapy in [place] 02/06/2025 Allergic rhinitis due to pollen (ICD-10 - J30.1) Given the history and symptoms, skin testing was performed to common aeroallergens to determine atopic status. Sahil clearly suffers from atopic disease based upon our skin testing today. Accordingly, we have introduced a new, aggressive medication regimen, discussed nasal washes and allergy-specific avoidance measures. We also discussed adjunctive therapies including subcutaneous, specific allergen immunotherapy as relates to the treatment and prevention of atopic disease. He is currently considering the risks, benefits and alternatives to this care. 02/13/2025 Bee allergy status (ICD-10 - Z91.030) 02/13/2025 Other insect allergy status (ICD-10 - Z91.038) 03/06/2025 Bee allergy status (ICD-10 - Z91.030) 03/06/2025 Other insect allergy status (ICD-10 - Z91.038) 04/04/2025 Bee allergy status (ICD-10 - Z91.030) 04/04/2025 Other insect allergy status (ICD-10 - Z91.038) 05/01/2025 Allergic urticaria (ICD-10 - L50.0) History of venom anaphylaxis and tolerating immunotherapy well. He denies any large local or systemic symptoms with immunotherapy. Plan to complete 5 years of therapy. EpiPen to be available at all times. Instructed on proper use of the device. Sahil started venom immunotherapy in [place] 05/01/2025 Allergic rhinitis due to pollen (ICD-10 - J30.1) Sahil clearly suffers from atopic disease based upon our skin testing. Accordingly, we have introduced a new, aggressive medication regimen, discussed nasal washes and allergy-specific avoidance measures. We also discussed adjunctive therapies including subcutaneous, specific allergen immunotherapy as relates to the treatment and prevention of atopic disease. At this time, he is not interested in starting immunotherapy. 05/29/2025 Bee allergy status (ICD-10 - Z91.030) 05/29/2025 Other insect allergy status (ICD-10 - Z91.038) 06/26/2025 Bee allergy status (ICD-10 - Z91.030) 06/26/2025 Other insect allergy status (ICD-10 - Z91.038) 07/24/2025 Bee allergy status (ICD-10 - Z91.030) 07/24/2025 Other insect allergy status (ICD-10 - Z91.038) 05/01/2025 Bee allergy status (ICD-10 - Z91.030) 02/06/2025 Bee allergy status (ICD-10 - Z91.030) 11/21/2024 Other insect allergy status (ICD-10 - Z91.038) 11/21/2024 Allergic rhinitis due to pollen (ICD-10 - J30.1) Sahil clearly suffers from atopic disease based upon [facility] and clinical history. He reports nasal symptoms are under good control with antihistamines and not interested in immunotherapy at this time. 02/06/2025 Other insect allergy status (ICD-10 - Z91.038) 05/01/2025 Other insect allergy status (ICD-10 - Z91.038) 05/01/2025 Allergic rhinitis due to animal (cat) (dog) hair and dander (ICD-10 - J30.81) 02/06/2025 Allergic rhinitis due to animal (cat) (dog) hair and dander (ICD-10 - J30.81) 11/21/2024 Allergic rhinitis due to animal (cat) (dog) hair and dander (ICD-10 - J30.81) 11/21/2024 Other allergic rhinitis (ICD-10 - J30.89) 02/06/2025 Other allergic rhinitis (ICD-10 - J30.89) 05/01/2025 Other allergic rhinitis (ICD-10 - J30.89) 05/01/2025 Other chronic allergic conjunctivitis (ICD-10 - H10.45) Given ocular signs and symptoms I encouraged allergy avoidance measures and meds as above. If symptoms persist, consider adding additional medications including intraocular antihistamine/mast cell stabilizer, PRN 02/06/2025 Other chronic allergic conjunctivitis (ICD-10 - H10.45) Given ocular signs and symptoms I encouraged allergy avoidance measures and meds as above. If symptoms persist, consider adding additional medications including intraocular antihistamine/mast cell stabilizer, PRN 11/21/2024 Other chronic allergic conjunctivitis (ICD-10 - H10.45) Given ocular signs and symptoms I encouraged allergy avoidance measures and meds as above. If symptoms persist, consider adding additional medications including intraocular antihistamine/mast cell stabilizer, PRN 11/21/2024 Allergy status to other drugs, medicaments and biological substances (ICD-10 - Z88.8) multiple medication allergies and he and Mom do not remember the reactions. Recommend drug challenge in the future if needed. He tolerates amoxicillin, penicillin and azithromycin. 02/06/2025 Allergy status to other drugs, medicaments and biological substances (ICD-10 - Z88.8) multiple medication allergies and he and Mom do not remember the reactions. Recommend drug challenge in the future if needed. He tolerates amoxicillin, penicillin and azithromycin. 05/01/2025 Allergy status to other drugs, medicaments and biological substances (ICD-10 - Z88.8) multiple medication allergies and he and Mom do not remember the reactions. Recommend drug challenge in the future if needed. He tolerates amoxicillin, penicillin and azithromycin. Plan Of Treatment Next Appt Details Provider Name:Estrella AcharyaGogo Anais sorto, 08/28/2025 10:00:00 AM, [address], [address], Provider Name:Dory escalera, 10/03/2025 02:45:00 PM, [address] [place] [address], [phone], Provider Name:Estrella BrandonGogo Anais ritubrandon, 11/06/2025 11:00:00 AM, [address], [address], Insurance Providers Payer Name Payer Address Payer Phone Subscriber Number Group Number Insured Name Patient Relationship to Insured Coverage Start Date Coverage End Date [employer] [address] [address] [place] [address] [phone] [id number] [address] Sahil Self - patient is the insured 5 Medical (General) History Medical History History ICD Code CRPS (complex regional pain syndrome) Anxiety disorder, unspecified F41.9 Other irritable bowel syndrome K58.8 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
[2025-08-19 20:32] LABS: Anion Gap 7 mmol/L (4-12); Blood Urea Nitrogen 7 mg/dL (9-20); Calcium 8.3 mg/dL (8.4-10.2); Carbon Dioxide 25 mmol/L (22-30); Chloride 97 mmol/L (98-107); Estimated CRCL calculation 114 ml/min; Estimated Glomerular Filt Rate > 60; Glucose 137 mg/dL (65-110); Potassium 3.6 mmol/L (3.4-5.0); Sodium 129 mmol/L (137-145)
[2025-08-19 21:59] LABS: MRSA (PCR) NOT DETECTED (NOT DETECTE)
[2025-08-19] MEDS: NICOTINE (*PBKC) 21 MG PATCH 1 PATCH TRANSDERM (23:44)
[2025-08-20] VITALS (17 sets, daily range): BP systolic 95–145; BP diastolic 59–113; PULSE 71–81; RESP 13–22; TEMP 36.6–37; O2SAT 96–99
[2025-08-20 00:41] LABS: Anion Gap 5 mmol/L (4-12); Blood Urea Nitrogen 9 mg/dL (9-20); Calcium 8.7 mg/dL (8.4-10.2); Carbon Dioxide 26 mmol/L (22-30); Chloride 103 mmol/L (98-107); Estimated CRCL calculation 109 ml/min; Estimated Glomerular Filt Rate > 60; Glucose 114 mg/dL (65-110); Potassium 4.1 mmol/L (3.4-5.0); Sodium 134 mmol/L (137-145)
[2025-08-20 03:56] LABS: Hematocrit 38.2 % (42.0-52.0); Hemoglobin 13.7 g/dL (14.0-18.0); Immature Granulocyte Percent A 0.4 % (0-0.5); Lymphocytes Absolute Auto 3.04 K/mm3 (0.9-3.2); Mean Corpuscular HGB Conc 35.9 g/dl (32-36); Mean Corpuscular Hemoglobin 33.3 pg (26-34); Mean Corpuscular Volume 92.7 fl (80-100); Nucleated Red Blood Cells Absolute Auto 0.000 K/mm3 (0.0-0.012); Nucleated Red Blood Cells Perc 0.0 % (0.0-0.2); Platelet Count Result 279 k/mm3 (150-375); Red Blood Count 4.12 M/mm3 (4.6-6.20); White Blood Count 9.7 K/mm3 (4.5-10.0)
[2025-08-20 05:07] LABS: Alanine Aminotransferase 38 U/L (6-50); Albumin Level 4.1 g/dL (3.5-5.1); Alkaline Phosphatase 101 U/L (38-126); Anion Gap 5 mmol/L (4-12); Aspartate Amino Transferase 39 U/L (17-59); Bilirubin,Total 0.4 mg/dL (0.2-1.3); Blood Urea Nitrogen 10 mg/dL (9-20); Calcium 8.8 mg/dL (8.4-10.2); Carbon Dioxide 26 mmol/L (22-30); Chloride 103 mmol/L (98-107); Estimated CRCL calculation 104 ml/min; Estimated Glomerular Filt Rate > 60; Glucose 101 mg/dL (65-110); Potassium 4.5 mmol/L (3.4-5.0); Sodium 134 mmol/L (137-145); Total Protein 6.7 g/dL (6.3-8.2)
--- NOTE | 2025-08-20 08:03 | PC.NURSE ---
Notified Dr Bravo of lab trend. Received order to start D5 at 250 x 2hr and hold, complete sodium draw 1 hr after and call Dr Bravo with results. Order read back and verified.
--- OUTSIDE RECORDS SUMMARY | 2025-08-20 08:15 | XMS_ITS | Patient Health Record ---
Author Organization [facility] Address [address] [facility] [address] [place] [address] Care Team Providers Care Frame Nailer Name Role Phone Jcarlos Granger Unavailable [phone] Reason For Referral No Information Medications Medication SIG (Take, Route, Frequency, Duration) Notes Start Date End Date Status Hyoscyamine Sulfate 0.125 MG Tablet Oral Active Fetzima 40 MG Capsule Extended Release 24 Hour Oral Act millie [place] Carbonate 150 MG Capsule Oral Active lamoTRIgine [...]
--- OUTSIDE RECORDS SUMMARY | 2025-08-20 08:15 | XMS_ITS | Encounter Summary ---
Author Organization [facility] Address [address] [facility] [place] [address] Care Team Providers Care Veneer Drier Name Role Phone Isaac Lobo DO Primary Care Provider + Encounter Details Date Type Department Care Team (Late Contact Info) Description 06/06/2023 Lab Requisition [facility] Lab [address] [facility], [facility] [place] [address] Khalida Wallis DO [address] [facility] [address] [place] [address] Social History Tobacco Use Types Packs/Day Years Used Date Smoking Tobacco: Every Day Cigarettes 1 15 Smokeless Tobacco: Never Alcohol Use Standard Drinks/Week Comments No 0 (1 standard drink = 0.6 oz pur e alcohol) Sex and Gender Information Value Date Recorded Sex Assigned at Not on file Legal 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 Gender Identity Not on file Sexual Orientation Not on file documented as of this encounter Plan of Treatment Upcoming Encounters Date Type Department Care Team (Late Contact Info) Description 11/06/2025 10:20 AM NETWORKING SPECIALIST Office Visit [facility] [employer] [address] [facility] [address] [place] [phone] [place] [address] [facility] [address] [address] 02/06/2026 9:40 AM CDT Office Visit [facility] [address] [place] [address] [place] [address] [place] [address] documented as of this encounter Procedures Procedure Name Priority Date/Time Associated Diagnosis Comments IMMUNOFLUORESCENT STUDY DERM Routine 06/06/2023 12:00 AM CDT documented in this encounter Results * IMMUNOFLUORESCENT STUDY DERM (06/06/2023 12:00 AM CDT) Case Report Dermatopathol ogy Report Case: [id number] Authorizing Provider: Khalida Wallis DO Collected: 06/06/2023 12:00 AM Ordering Location: [facility] Derm[facility] Lab Received: 06/06/2023 04:52 PM Pathologist: Vanessa Cox MD Specimen: Skin, right forearm perilesional 3 3:12 PM CDT DERMATOPATHOLOGY LABORATORY Final Diagnosis Specimen A. 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 Billing Codes Specimen Charges Stain Charges [id number] 1 1 1 1 1 1 3 3:12 PM CDT DERMATOPATHOLOGY LABORATORY Embedded Images 3 3:12 PM CDT DERMATOPATHOLOGY LABORATORY Pathology/Cytolog y TISSUE SPECIMEN FROM SKIN / Unknown 06/06/2023 06/06/2023 4:52 PM CDT us Khalida Wallis DO LAB - PATHOLOGY/CYTOLOGY ORDERABLES Final Result DERMATOPATHOLOGY LABORATORY [facility] - Department of Dermatology [facility] Medicine [address] [place] [address], [address] [phone] documented in this encounter Visit Diagnoses Not on filedocumented in this encounter Care Teams Veneer Drier Relationship Specialty Start Date End Date Isaac Lobo DO [address] [place] [id number] PCP - General Family Medicine Geriatric Medicine 02/17/23 documented as of this encounter
--- OUTSIDE RECORDS SUMMARY | 2025-08-20 08:15 | XMS_ITS | Clinical Summary ---
Author Organization [facility] Address [address] [place] [address] Care Team Providers Care Manager Data Name Role Phone Isaac Brizuela MD Unavailable [phone] Isaac Lobo DO Primary Care Provide r [...] on file Legal Sex Male 12:34 AM STATISTICAL CLERK Gender Identity Not on file Sexual Orientation Not on file Obstetrics History Last Filed Vital Signs Vital Sign Reading Time Taken Comments Blood Pressure 136/91 07/10/2024 11:09 AM CDT Pulse 96 07/10/2024 11:09 AM CDT Temperature 36.3 C (97.4 F) 09/13/2023 12:55 PM STATISTICAL CLERK Respiratory Rate 16 06/10/2023 5:05 PM CDT [...] as needed Medical Devices Implanted Type Area Screen Printing Machine Operator Helper Device Identifier Shelf Expiration Date Model / Serial / Lot Graft Bone Infuse Bovine Collagen Rhbmp-2 Large L26 Mm Od18 Mm 8 Ml Spine Absorbable Sponge Sterile Water Syringe Needle Lumbar Tapered Fusion Device - [id number] Implanted:Qty: 1 on 12/13/2017 by Nixon Dominguez MD at [facility] N/A: Spine Lumbar Med[employer]onic Sofamor Danek [id number] 03/31/2019 [id number] / / [id number] Spacer Spinal Contact Option Vbr Peek [place] 4 D D23 Mm Convex W30 Mm X H14 Mm Anterior Lordosis Back Cutting Teeth Radiographic Verification 3 Insertion Hole Dark Blue - [id number] Implanted:Qty: 1 on 12/13/2017 by Nixon Dominguez MD at [facility] N/A: Spine Lumbar [employer] 03/27/2020 34-A30-14- 4 / / [id number] Plate 36mm Anterior Lumbar - [id number] Implanted:Qty: 1 on 12/13/2017 by Nixon Dominguez MD at [facility] N/A: Spine Lumbar [employer] 25-LP-36 / / Screw 25-60-24 - [id number] Implanted:Qty: 4 on 12/13/2017 by Nixon Dominguez MD at [facility] N/A: Spine Lumbar [employer] 25-60-24 / / Procedures Procedure Name Priority Date/Time Associated Diagnosis Comments HEPATITIS PANEL, ACUTE Routine 07/05/2023 4:06 PM CDT Positive CHONG (antinuclear antibody) from Last 3 Months or Most Recently Relevant to Health Maintenance Results * Hepatitis panel, acute Blood (07/05/2023 4:06 PM CDT) Hep A IgM Nonreactive Nonreactive Hep B core IgM Nonreactive Nonreactive [facility] Hep C Ab Nonreactive Nonreactive [facility] Comment:Antibodies to HCV no t detected. Does NOT exclude the possibility of recent exposure to HCV. Current interpretive data was last revised on 22 HepBsAg Nonreactive Nonreactive [facility] Blood 07/05/2023 4:06 PM CDT 07/05/2023 6:42 PM CDT Farzaneh Patel MD LAB MICROBIOLOGY - GENERAL ORDER JENNY Final Result [facility] Department [place] [address] from Last 3 Months or Most Recently Relevant to Health Maintenance Insurance [facility] MEDICARE ADVANTAGE Advance Directives For more information, please contact: [phone] Documents on File Type Date Recorded Patient Stucco Applicator Expl anation ADVANCE DIRECTIVE 12/16/2017 8:03 AM POWER OF ATV MECHANIC ADVANCE DIRECTIVE 12/13/2017 12:08 PM ADVANCE DIRECTIVE 12/13/2017 Advance Di rective Checklist * Full Code (Latest Code Status on File) Date Activated Date Inactivated Comments 12/13/2017 8:04 PM 12/14/2017 4:10 PM Care Teams Manager Data Relationship Specialty Start Date End Date Isaac Lobo DO [address] [place] [address] PCP - General Family Medicine 09/13/23 Isaac Brizuela MD [address] [place] [address] Pulmonary Disease 04/21/23 Jonna Garcia, RN Registered Nurse Pulmonary Disease 09/19/23
--- OUTSIDE RECORDS SUMMARY | 2025-08-20 08:15 | XMS_ITS | Encounter Summary ---
Author Organization [facility] Address [address] [address] Care Team Providers Care Email Manager Name Role Phone Isaac Lobo DO Primary Care Provider + Encounter Details Date Type Department Care Team (Late Contact Info) Description 09/14/2023 Lab Requisition [facility] - DermPath Lab [address] [facility] [place] [address] Khalida Wallis DO [address] [facility] 3 [place] [address] Social History Tobacco Use Types Packs/Day Years Used Date Smoking Tobacco: Every Day Cigarettes 2 15 Smokeless Tobacco: Never Alcohol Use Standard Drinks/Week Comments No 0 (1 standard drink = 0.6 oz pur e alcohol) PHQ-2 Answer Date Recorded Patient Health Questionnaire-2 Score 0 08/31/2023 Sex and Gender Information Value Date Recorded Sex Assigned at Not on file Legal Sex Male 5:39 AM CHARTER COORDINATOR Gender Identity Not on file Sexual Orientation Not on file documented as of this encounter Plan of Treatment Upcoming Encounters Date Type Department Care Team (Late Contact Info) Description 11/06/2025 10:20 AM CHARTER COORDINATOR Office Visit [place] [id number] [facility] [address] [place] [phone] [place] [address] [facility] [address] [address] [address] [place] [place] [address] 02/06/2026 9:40 AM CDT Office Visit Critical access hospital [address] [facility] [address] [place] [address] [place] [address] [place] [address] documented as of this encounter Procedures Procedure Name Priority Date/Time Associated Diagnosis Comments DERMATOPATHOLOGY Routine 09/14/2023 11:1 0 AM CHARTER COORDINATOR documented in this encounter Results * DERMATOPATHOLOGY (09/14/2023 11:10 AM CHARTER COORDINATOR) Case Report Dermatopathology Report Case: [id number] Authorizing Provider: Khalida Wallis DO Collected: 09/14/2023 11:10 AM Ordering Location: [facility] DermPath Lab Received: 09/15/2023 10:02 AM Pathologist: Kelley Cox MD Specimen: Skin, left back 3 2:56 PM [facility] DERMATOPATHOLOGY LABORATORY Final Diagnosis Specimen A. SKIN, left back: SUPERFICIAL AND DEEP PERIVASCULAR AND PERIADNEXAL LYMPHOCYTIC INFILTRATE (L93.0) (see microscopic description and comment) 3 2:56 PM [facility] DERMATOPATHOLOGY LABORATORY at 1456 CHARTER COORDINATOR Clinical History Annular Polycidin plaques SCLE vs EM vs other 3 2:56 PM [facility] DERMATOPATHOLOGY LABORATORY Gross Description Specimen A: Received is one formalin filled container labeled with the patient's name and designated left back. The specimen consists of a(2) pieces punch biopsy measuring 4x4x5, 3x3x1 mm. Jar 0. 3 2:56 PM [facility] DERMATOPATHOLOGY LABORATORY Microscopic Description Specimen A. [...] involvement of adnexal structures. 3 2:56 PM [facility] DERMATOPATHOLOGY LABORATORY Disclaimer An external and internal positive and negative controls are appropriate for the histochemical, immunohistochemical and immunofluorescence stain(s) in this case (if any), except where stated explicitly. The performance characteristics of the stain(s) cited in this report were developed and its performance characteristic determined by the Dermatopathology Laboratory at [facility], directed by Dr. Neo Aceves. These tests need not be, and therefore are not, approved by the [place] Food and Drug Administration. The tests are used for clinical purposes. Billing Codes Specimen Charges Stain Charges 33607 1 3 2:56 PM [facility] DERMATOPATHOLOGY LABORATORY Embedded Images 3 2:56 PM [facility] DERMATOPATHOLOGY LABORATORY Pathology/Cytolo gy TISSUE SPECIMEN FROM SKIN / Unknown 09/14/2023 11:10 AM CHARTER COORDINATOR 09/15/2023 10:02 AM CHARTER COORDINATOR Khalida Wallis DO LAB - PATHOLOGY/CYTOLOGY ORDERABLES Final Result DERMATOPATHOLOGY LABORATORY [facility] - Department of Dermatology [address], [address] [phone] documented in this encounter Visit Diagnoses Not on filedocumented in this encounter Care Teams Email Manager Relationship Specialty Start Date End Date Isaac Lobo DO [address] [place] [address] PCP - General Family Medicine Geriatric Medicine 02/17/23 documented as of this encounter
--- OUTSIDE RECORDS SUMMARY | 2025-08-20 08:15 | XMS_ITS | Encounter Summary ---
Author Organization [facility] Address [address] [facility] [place] [address] Care Team Providers Care Ultrasonic Seaming Machine Operator Name Role Phone Isaac Lobo DO Primary Care Provider + Encounter Details Date Type Department Care Team (Late Contact Info) Description 06/06/2023 Lab Requisition [facility] - DermPath Lab [address] [facility] [place] [address] Khalida Wallis DO [address] [facility] 3 [place] [address] Social History Tobacco Use Types Packs/Day Years Used Date Smoking Tobacco: Every Day Cigarettes 1 15 Smokeless Tobacco: Never Alcohol Use Standard Drinks/Week Comments No 0 (1 standard drink = 0.6 oz pur e alcohol) Sex and Gender Information Value Date Recorded Sex Assigned at Not on file Legal Sex Male 5:39 AM FINAL ASSEMBLY AND PACKING SUPERVISOR Gender Identity Not on file Sexual Orientation Not on file documented as of this encounter Plan of Treatment Upcoming Encounters Date Type Department Care Team (Late Contact Info) Description 11/06/2025 10:20 AM FINAL ASSEMBLY AND PACKING SUPERVISOR Office Visit [facility] [address] [facility] [address] [place] [phone] [place] [address] [facility] [facility] [address] [address] 02/06/2026 9:40 AM CDT Office Visit Critical access hospital [address] [facility] [address] [place] [address] [place] [address] [place] [address] documented as of this encounter Procedures Procedure Name Priority Date/Time Associated Diagnosis Comments DERMATOPATHOLOGY Routine 06/06/2023 9:27 AM CDT documented in this encounter Results * DERMATOPATHOLOGY (06/06/2023 9:27 AM CDT) Case Report Dermatopathology Report Case: [id number] Authorizing Provider: Khalida Wallis DO Collected: 06/06/2023 09:27 AM Ordering Location: [facility] DermPath Lab Received: 06/06/2023 04:50 PM Pathologist: Vanessa Cox MD Specimen: Skin, right forearm 3:11 PM CDT DERMATOPATHOLOGY LABORATORY Final Diagnosis Specimen A. SKIN, right forearm: HEALING SKIN CHANGES WITH DERMAL FIBROSIS (L90.5) ULCER WITH SUPERFICIAL DERMAL NECROSIS (L98.499) (see microscopic description and comment) (see direct immunofluorescence results [id number]) 3:11 PM CDT DERMATOPATHOLOGY LABORATORY at 1511 [...] characteristic determined by the Dermatopathology Laboratory at [facility], directed by Dr. Neo Aceves. These tests need not be, and therefore are not, approved by the [place] Food and Drug Administration. The tests are used for clinical purposes. Billing Codes Specimen Charges Stain Charges 60011 1 [address] 13584 64484 1 1 1 3 3:11 PM CDT DERMATOPATHOLOGY LABORATORY Embedded Images 3 3:11 PM CDT DERMATOPATHOLOGY LABORATORY Pathology/Cytolo gy TISSUE SPECIMEN FROM SKIN / Unknown 06/06/2023 9:27 AM CDT 06/06/2023 4:50 PM CDT Khalida Wallis DO LAB - PATHOLOGY/CYTOLOGY ORDERABLES Final Result DERMATOPATHOLOGY LABORATORY [facility] - Department of Dermatology [facility] [address] [place] [address], [address] [place] [address], [facility] [phone] documented in this encounter Visit Diagnoses Not on filedocumented in this encounter Care Teams Ultrasonic Seaming Machine Operator Relationship Specialty Start Date End Date Isaac Lobo DO [address] [place] [address] PCP - General Family Medicine Geriatric Medicine 02/17/23 documented as of this encounter
--- OUTSIDE RECORDS SUMMARY | 2025-08-20 08:15 | XMS_ITS | Clinical Summary ---
Author Organization [facility] [place] Address [address] [place] [address] Care Team Providers Care Medication Aid Name Role Phone Isaac Lobo Trish BLAIR Primary Care Provider + Jake Barney MD Unavailable Allergies Active Allergy Reactions Criticality Noted Date [...] PF 08/05/2023 Pneumococcal conjugate PCV20 , polysaccharide MQS513 conjugate, adjuvant, PF 01/18/2023 TDAP Vaccine 08/29/2011 [...] on file Legal Sex Male 3:06 AM ORTHOPEDIC TECH Gender Identity Not on file Sexual Orientation [...] <1 S/CO 02/13/2015 9:54 PM CDT [facility] Comment: Signal/Cutoff ratio < 0.79 is Nondetected Signal/Cutoff ratio 0.80-0.99 is Grayzone Signal/Cutoff ratio > 0.99 is Detected Supplemental assays are recommended if signal/cutoff ratio is >/=1.00. Signal/cutoff ratio result >/= 5.00 is 97% predictive of positivity for recombinant immunoblot assay (RIBA) and will be reported to the [place] Department of Public Health as required. Blood specimen (specimen) VENOUS STRUCTURE / Unknown Venipuncture / Unknown 02/13/2015 5:42 PM CDT 02/13/2015 5:43 PM CDT Primo Frey Jr., DO CHEMISTRY ORDERAB LES Final Result [facility] [address] [place] [address] from Last 3 Months or Most Recently Relevant to Health Maintenance Insurance MEDICARE C [facility] Care Teams Medication Aid Relationship Specialty Start Date End Date Isaac Lobo DO [address] [place] [phone] PCP - General Family Medicine 06/19/24 Jake Barney MD [address] [place] [address] Consulting Physician Oncology 06/19/24
--- OUTSIDE RECORDS SUMMARY | 2025-08-20 08:16 | XMS_ITS | Patient Health Record ---
Author Organization [facility] Address [address] [place] [address] Care Team Providers Care Hog Cooler Name Role Phone DELVIN DANG Unavailable [phone] Allergies Allergen (clinical drug ingredient) Drug/Non Drug [...] many cigarettes a day do you smoke? 21- Alcohol Screen (Audit-C) Question Answer Notes Did you have a drink containing alcohol in the p ast year? No Points 0 Interpretation Negative Tobacco use other than smoking: Question Answer Notes Are you an other tobacco user? No Problems Problem Type SNOMED Code ICD Code Onset Dates Problem Status W/U Status Risk Notes Problem Chronic pain syndrome (807064967) Chronic pain syndrome (G89.4) Active confirmed Problem Post-laminectomy syndrome (19222028) Post laminectomy syndrome (M96.1) Active confirmed Problem Failed back syndrome (65639197) Failed back surgical syndrome (M96.1) Active confirmed Problem Lumbar spondylosis (746594838) Lumbar spondylosis (M47.816) Active confirmed Problem Sacroiliitis (22776328) Sacroiliitis (M46.1) Active confirmed Problem Pain in right foot (182397031565321 ) Right foot pain (M79.671) Active confirmed Problem Backache (177032626) Back pain, unspecified back location, unspecified back pain laterality, unspecified chronicity (M54.9) Active confirmed Problem Complex regional pain syndrome, type II, upper limb (865678547) Complex regional pain syndrome type 2, affecting [...] Coverage End Date [employer] MED[employer]ARE [address] [place] [phone] [id number] [place] ST[place] Self - patient is the insured 1 Medical (General) History Medical History History ICD Code IBS ANXIETY DEPRESSION FACTOR V LEIDEN CRP Surgical History Surgery Date(Month/Year) 3 KNEE SCOPES ON RIGHT KNEE TONSILLECTOMY ADENOIDECTOMY SPINAL FUSION @ L4-L5
--- OUTSIDE RECORDS SUMMARY | 2025-08-20 08:16 | XMS_ITS | Encounter Summary ---
Author Organization [facility] Address [address] [facility] [place] [address] Care Team Providers Care Fiberglass Dowel Drawing Operator Name Role Phone Isaac Lobo DO Primary Care Provider + Reason for Visit * Reason Onset Date Comments Hospital Follow-up 08/19/2025 Update 08/19/2025 Encounter Details Date Type Department Care Team (Late st Contact Info) Description 08/19/2025 Telephone [facility] [employer] [facility] [address] [address] [place] [address] [address] Hospital Follow-up; Update Social History [...] on file Legal Sex Male 5:39 AM RADIO INTERFERENCE EXPERT Gender Identity Not on file Sexual Orientation Not on file documented as of this encounter Miscellaneous Notes * Telephone Encounter - Cammy Herndon MA - 08/19/2025 3:42 PM CDT Pt mom called to inform Dr. Lozano that pt had a seizure episode today and was transported to [facility] in [facility]. Pt mom stated pt was sitting in a chair and went o get up and collapsed to the floor face first, seizure lasted 1-2 min. I informed pt mom I would send a message to Dr. Lozano informing him of this and gave our fax number, to fax all notes from emergency room at [facility]. Pt mom verbalized understanding. documented in this encounter Plan of Treatment Upcoming Encounters Date Type Department Care Team (Late st Contact Info) Description 11/06/2025 10:20 AM RADIO INTERFERENCE EXPERT Office Visit [address] [address] [place] [address] [place] [address] 02/06/2026 9:40 AM CDT Office Visit [address] [address] [place] [address] [place] [address] [place] [address] documented as of this encounter Visit Diagnoses Not on filedocumented in this encounter Care Teams Fiberglass Dowel Drawing Operator Relationship Specialty Start Date End Date Isaac Lobo DO [address] [place] [address] PCP - General Family Medicine Geriatric Medicine 02/17/23 documented as of this encounter
--- OUTSIDE RECORDS SUMMARY | 2025-08-20 08:16 | XMS_ITS | Patient Health Record ---
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 Problem Anxiety disorder (209474217) Anxiety disorder, unspecified (F41.9) Active confirmed Problem Chronic allergic conjunctivitis (55597449) Other chronic allergic conjunctivitis (H10.45) Active confirmed Problem Allergic rhinitis caused by pollen (disorder) (26073374) Allergic rhinitis due to pollen (J30.1) Active confirmed Problem Allergic rhinitis (18192146) Other allergic rhinitis (J30.89) Active confirmed Problem Allergy to bee venom (083153894) 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) Active confirmed Problem Allergy to insect allergen (070981204) Other insect allergy status (Z91.038) Active confirmed Problem Allergic rhinitis caused by animal hair and dander (125022808688129) Allergic rhinitis due to animal (cat) (dog) hair and dander (J30.81) Active confirmed Problem Allergic urticaria (12332056) Allergic urticaria (L50.0) Active confirmed Problem Irritable bowel syndrome (71283615) Other irritable bowel syndrome (K58.8) Active confirmed Problem Allergy status t o other drugs, medicaments and biological substances (Z88.8) Active confirmed Vital Signs Oximetry 98 % 05/01/2025 Blood pressure diastolic 76 mm Hg 05/01/2025 Height 64 in 05/01/2025 Blood pressure systolic 119 mm Hg 05/01/2025 Weight 172.8 lbs 05/01/2025 BMI 29.66 kg/m2 05/01/2025 Encounters Encounter Location Date Provider Diagnosis [facility] [address] [address] 06/26/2025 Estrella Nacho Bee allergy status Z91.030 and Other insect allergy status Z91.038 [facility] [employer] [address] [place] [address] 05/29/2025 Estrella Nacho Bee allergy status Z91.030 and Other insect allergy status Z91.038 [facility] [employer] [address] [place] [address] 03/06/2025 Estrella Nacho Bee allergy status Z91.030 and Other insect allergy status Z91.038 [facility] [employer] [address] [place] [address] 02/13/2025 Estrella Nacho Bee allergy status Z91.030 and Other insect allergy status Z91.038 [facility] [employer] [address] [place] [address] 01/14/2025 Estrella Nacho Bee allergy status Z91.030 and Other insect allergy status Z91.038 [facility] [employer] [address] [place] [address] 07/24/2025 Estrella Nacho Bee allergy status Z91.030 and Other insect allergy status Z91.038 [facility] [employer] [address] [place] [address] 04/04/2025 Estrella Nacho Bee allergy status Z91.030 and Other insect allergy status Z91.038 [facility] [employer] [address] [place] [address] 10/17/2024 Estrella Nacho Bee allergy status Z91.030 and Other insect allergy status Z91.038 [facility] [employer] [address] [place] [address] 09/04/2024 Estrella Nacho Bee allergy status Z91.030 and Other insect allergy status Z91.038 [facility] [employer] [address] [place] [address] 05/01/2025 Estrella Nacho Allergic urticaria L50.0 ; Allergic rhinitis due to pollen J30.1 ; Bee allergy status Z91.030 ; Other insect allergy status Z91.038 ; Allergic rhinitis due to animal (cat) (dog) hair and dander J30.81 ; Other allergic rhinitis J30.89 ; Other chronic allergic conjunctivitis H10.45 and Allergy status to other drugs, medicaments and biological substances Z88.8 [facility] [address] [place], [place] [address] [address] [address] 11/21/2024 Estrella Griffith Allergic urticaria L50.0 ; Bee allergy status Z91.030 ; Other insect allergy status Z91.038 ; Allergic rhinitis due to pollen J30.1 ; Allergic rhinitis due to animal (cat) (dog) hair and dander J30.81 ; Other allergic rhinitis J30.89 ; Other chronic allergic conjunctivitis H10.45 and Allergy status to other drugs, medicaments and biological substances Z88.8 [facility] [address] [place], [place] [address] [address] [address] 12/17/2024 Estrella Griffith Bee allergy status Z91.030 and Other insect allergy status Z91.038 [facility] [address] [place], [place] [address] [address] [address] 02/06/2025 Estrella Griffith Allergic urticaria L50.0 ; Allergic rhinitis due to pollen J30.1 ; Bee allergy status Z91.030 ; Other insect allergy status Z91.038 ; Allergic rhinitis due to animal (cat) (dog) hair and dander J30.81 ; Other allergic rhinitis J30.89 ; Other chronic allergic conjunctivitis H10.45 and Allergy status to other drugs, medicaments and biological substances Z88.8 [facility] [address] [place], [place] [address] [address] [address] 04/02/2025 Estrella Griffith [facility] [address] [place], [place] [address] [address] [address] 04/02/2025 Estrella Griffith [address] [address] 08/07/2025 Estrella Griffith [address] [address] 01/14/2025 Estrella Griffith [facility] [address] [facility] [address] [place] [address] 11/21/2024 Estrella Griffith Assessments Encounter Date Diagnosis [...] the device. Sahil started venom immunotherapy in [place] 11/21/2024 Bee allergy status (ICD-10 - Z91.030) [...] the device. Sahil started venom immunotherapy in [place] 02/06/2025 Allergic rhinitis due to pollen (ICD-10 [...] the device. Sahil started venom immunotherapy in [place] 05/01/2025 Allergic rhinitis due to pollen (ICD-10 [...] AcharyaGogo Anais sorto, 08/28/2025 10:00:00 AM, [address] [employer], [address], [address], Provider Name:Dory escalera, 10/03/2025 02:45:00 PM, [address] [place] [address], [phone], Provider Name:Estrella BrandonGogo Anais ritubrandon, 11/06/2025 11:00:00 AM, [address] [employer], [address], [address], Insurance Providers Payer Name Payer Address Payer Phone Subscriber Number Group Number Insured Name Patient Relationship to Insured Coverage Start Date Coverage End Date [employer] Medicare [address] [address] [place] [address] [phone] [id number] Cruz Sahil Self - patient is the [...]
--- OUTSIDE RECORDS SUMMARY | 2025-08-20 08:16 | XMS_ITS | Clinical Summary ---
Author Organization [facility] [employer] Address [address] [facility] [place] [address] Care Team Providers Care Movie Extra Name Role Phone Isaac Lobo DO Primary Care Provider + Source Comments [facility],non-owned Affiliates and Associated Physician Practices is amultiple site organization consisting of ambulatory clinics and hospital sitesin [place], [place], [place] and [place]. This disclosure is being madepursuant to the Care Everywhere program and may not contain all information available regarding this patient. Last updated 18.[facility] [employer] Allergies Active Allergy Reactions Criticality Noted Date [...] Active vitamin D, ergocalciferol, (Drisdol) 1.25 MG (97310 UT) capsule Take 1 (one) capsule by [...] (11/14/2023): Added automatically from request for surgery [id number] S/P insertion of spinal cord stimulator 12/31/19 22 11/14/2023 Overview (11/14/2023): Added automatically from request for surgery [id number] Added automatically from request for surgery [id number] IBS (irritable bowel syndrome) 06/15/2018 0 11/14/2023 [...] Care Team Description 08/19/[address] [facility] [employer] [address] [place] [phone] Yazan Lozano MD Hospital Follow-up; Update 08/01/2025 12:40 PM CDT Office Visit [address] [address] Yazan Lozano MD Complex regional pain syndrome type 1 of both lower extremities (Primary Dx); Memory loss; Chronic pain syndrome 08/01/2025 Travel 06/07/[address] [address] Yazan Lozano MD Concerns; Question 06/04/[address] [address] Yazan Lozano MD MEDICATION REFILL 05/30/2025 10:54 AM CDT - 05/30/2025 11:59 PM CDT Hospital Encounter [facility] - Electrophysiology [address] [place] [address] Yazan Lozano MD Discharge Disposition: Home or Self Care 05/28/[address] [address] Yazan Lozano MD Update; Question 05/22/2025 12:00 PM CDT Office Visit [address] [address] Yazan Lozano MD Lumbosacral radiculopathy (Primary Dx); [...] on file Legal Sex Male 5:39 AM [employer] Gender Identity Not on file Sexual Orientation [...] st Contact Info) Description 11/06/2025 10:20 AM [employer] Office Visit [address] [place] [phone] [place] [address] [facility] [place] [address] 02/06/2026 9:40 AM CDT Office Visit [address] [place] [phone] [place] [address] [place] [place] [address] Health Maintenance Due Date Last Done [...] * EEG (05/30/2025 5:22 PM CDT) Narrative [facility] - 05/30/2025 5:22 PM CDT Royce Narvaez MD 05/30/2025 5:22 PM [facility] - ELECTROPHYSIOLOGY [id number] [place] [address] Electroencephalogram Sahil Arroyo 05/30/2025 Indication: Sahil [...] tablet vitamin D, ergocalciferol, (Drisdol) 1.25 MG (52911 UT) capsule No current facility-administered medications for this encounter. us Yazan Lozano MD NEUROLOGY ORDERABLES Final Res ult [facility] * (ABNORMAL) COMPREHENSIVE METABOLIC PANEL (05/24/2024 [...] Resulting Agency Comment Lab Testing performed at: [facility] [address] [facility] [id number] Alejandro Miranda MD LAB - CHEMISTRY ORDERABLES Final Result [facility] INSURANCE BILL [address] [place] [address] from Last 3 Months or Most Recently Relevant to Health Maintenance Insurance [facility] MANAGED MEDICARE ADV Care Teams Movie Extra Relationship Specialty Start Date End Date Isaac Lobo DO [address] [place] [id number] PCP - General Family Medicine Geriatric Medicine 02/17/23
[2025-08-20] MEDS: DEXTROSE 5% 1,000 ML 1,000 ML 250 ML IV CONT ×2 (08:28→16:29)
[2025-08-20] MEDS: HYDROXYCHLOROQUINE SULFATE 200 MG TABLET PO ×2 (08:29→20:18)
[2025-08-20] MEDS: CELECOXIB 200 MG CAPSULE PO ×2 (08:29→16:29)
[2025-08-20] MEDS: NICOTINE (*PBKC) 21 MG PATCH 1 PATCH TRANSDERM (08:30)
--- NOTE | 2025-08-20 09:01 | ECG_ITS ---
Test Date: 2025-08-19 17:22:46 Measurements Intervals [place] Rate: 85 P: 69 ID: [id number] QRS: -11 QRSD: 102 T: 42 QT: 375 QTc: 446 Interpretive Statements SINUS RHYTHM POSSIBLE LEFT ATRIAL ENLARGEMENT LOW QRS VOLTAGE IN PRECORDIAL LEADS INCOMPLETE RIGHT BUNDLE BRANCH BLOCK BORDERLINE ECG Compared to ECG 08/19/2025 15:02:23 No significant changes Electronically Signed On 08-20-2025 09:15:12 CDT by Jeyson Mcallister D.O.
--- NOTE | 2025-08-20 09:09 | WPDCNINT ---
Assessment and Plan Assessment and plan (1) Acute hyponatremia: Code(s): E87.1 - Hypo-osmolality and hyponatremia Status: Acute Assessment and Plan: Hyponatremia likely related to increased fluid intake, supplements, medication related -sodium levels 123 on admission -sodium levels increased to 134 in approximately 12 hours -will start D5W, discussed with Nephrology, as it is a rapid increase in the sodium level. -seizure BMPs -appreciate nephrology following the patient (2) New onset seizure: Code(s): R56.9 - Unspecified convulsions Status: Acute Assessment and Plan: Seizures could be likely related to hyponatremia, medications, supplements that the patient takes -he was recently started on Vraylar which also can decrease sodium levels -received Keppra 1000 mg IV x1 in the ER -no more seizure activity overnight -continue to monitor - MRI brain (3) Complex regional pain syndrome: Status: Acute Assessment and Plan: Patient has been receiving ketamine treatments for his chronic regional pain syndrome -ketamine may cause SIADH -hyponatremia -will discuss with Nephrology (4) Anxiety and depression: Code(s): F41.9 - Anxiety disorder, unspecified; F32.A - Depression, unspecified Status: Acute Assessment and Plan: Continue lamotrigine, trazadone Plan DVT prophylaxis: Lovenox Stress ulcer prophylaxis: Not indicated Nutrition: Regular diet Code Status: Full code Critical Care Time Spent: 44 minutes Discussed with patient and his mother and updated them with patient's condition and plan of care. MRI brain is going to be ordered Due to a high probability of clinically significant, life threatening deterioration, the patient required my highest level of preparedness to intervene emergently and I personally spent this critical care time directly and personally managing the patient. This critical care time included obtaining a history; examining the patient; pulse oximetry; ordering and review of studies; arranging urgent treatment with development of a management plan; evaluation of patient's response to treatment; frequent reassessment; and discussions with other providers. It was exclusive of separately billable procedures and treating other patients and teaching time. Please see Assessment and Plan section and the rest of the note for further information on patient assessment and treatment This dictation may have been done utilizing a voice recognition system. Attempts have been made to correct errors. However, there may be uncorrected grammatical, spelling, and recognitions errors present. Comic Artist Consult Note Consult date: 08/20/25 Reason for consult: Severe hyponatremia, seizure HPI: Sahil Arroyo is a 40 year old male with significant past medical history of complex regional pain syndrome for which she takes ketamine treatments, anxiety, depression, chronic back pain, delusions, patient has been taking different supplements continue control his pain, recently started on Vraylar presented the ED after he had a seizure-like episode. According the records patient was sitting in a chair, became less responsive, fentanyl in his chair on his left side in started shaking for at least 30 seconds with foaming at his mouth.. Upon arrival of EMS they noted that he was postictal. And was brought to the ED at [facility] on 08/19/2025 where he was found to be nonfocal, alert and oriented x4 in the ER. Patient does smoke 2 packets of cigarettes a day, denies any illicit drug use or alcohol use. He is on disability. Pertinent labs showed a sodium level of 123, UA was clear, urine drug screen was negative, CBC was within normal limits, BUN 7, creatinine 0.66, CO2 25. CT brain with no acute intracranial abnormality. Patient was given Keppra 1000 mg IV x1, transferred to the ICU for further management aunts normal saline. Nephrology was consulted. 08/20/2025: Patient seen and examined the ICU this morning, awake, oriented x4. Sodium levels of 134 (123 on admission). Hemodynamically stable, afebrile, adequate urine output. Not on any fluids at this time. Patient states he takes multiple supplements to see if they could help his chronic pain syndrome. He has been having some delusions recently and has been seeing his primary care doctor and psychiatrist who put him on Vraylar recently. Review of Systems Review of Systems: All systems reviewed & are unremarkable except as noted in HPI and below PMFSH Social History Social History Smoking packs per day: 2 Smoking cigarettes per day: 40.0 Years smoked: 30 Smoking pack-years: 60.00 Smoking status: Current every day smoker Tobacco type: cigarettes Alcohol intake: never Substance use: never Lack of Transportation: No Lack of Food: Never True Current Housing: I Have Housing Concerned About Future Housing: No Difficulty Paying Gas/Electric Bills: No Difficulty Paying for Meds: No Currently Unemployed: No Education: High School Diploma/GED Difficulty w/ Childcare or Family Care: No Spiritual care concerns: No Meds Home Medications and Allergies Home Medications ?Medication ?Instructions ?Recorded ?Confirmed ?Type cariprazine 1.5 mg capsule 1.5 mg PO DAILY 08/19/25 08/19/25 History (Vraylar) celecoxib 200 mg capsule 200 mg PO BID 08/19/25 08/19/25 History clonazepam 0.5 mg tablet 0.5 mg PO DAILY PRN anxiety 08/19/25 08/19/25 History diazepam 5 mg tablet 5 mg PO DAILY PRN anxiety 08/19/25 08/19/25 History hydroxychloroquine 200 mg tablet 200 mg PO BID 08/19/25 08/19/25 History lamotrigine 25 mg tablet 75 mg PO DAILY 08/19/25 08/19/25 History trazodone 100 mg tablet 200 mg PO HS PRN insomnia 08/19/25 08/19/25 History Allergies Allergy/AdvReac Type Severity Reaction Status Date / Time Sulfa (Sulfonamide Allergy Intermediate Unknown Verified 08/19/25 18:37 Antibiotics) Cephalosporins Allergy Mild Unknown Verified 08/19/25 18:37 erythromycin base Allergy Mild Nausea and Verified 08/19/25 18:37 Vomiting Latex, Natural Rubber Allergy Mild Rash Verified 08/19/25 18:37 bee sting Allergy Severe Anaphylactic Uncoded 08/19/25 15:10 Shock macrolides Allergy Intermediate Rash Uncoded 08/19/25 15:10 Vital Signs Vital Signs - 24 hr 08/19/25 14:55 08/19/25 15:05 08/19/25 15:05 Temperature 97.6 F Pulse Rate 88 93 Respiratory Rate 16 Blood Pressure 140/98 H Pulse Oximetry 95 98 Oxygen Delivery Room Air Room Air 08/19/25 16:21 08/19/25 17:30 08/19/25 17:30 Temperature Pulse Rate 83 81 80 Respiratory Rate 20 17 17 Blood Pressure 124/87 118/85 118/85 Pulse Oximetry 96 97 97 Oxygen Delivery 08/19/25 17:31 08/19/25 18:40 08/19/25 19:00 Temperature 98.3 F 97.7 F Pulse Rate 84 79 Respiratory Rate 18 17 Blood Pressure 131/95 H 113/83 Pulse Oximetry 97 98 96 Oxygen Delivery Room Air 08/19/25 20:00 08/19/25 20:00 08/19/25 20:00 Temperature 97.9 F Pulse Rate 86 85 Respiratory Rate 20 Blood Pressure 107/71 Pulse Oximetry 97 Oxygen Delivery Room Air 08/19/25 21:00 08/19/25 22:00 08/19/25 22:00 Temperature 98.2 F Pulse Rate 92 87 87 Respiratory Rate 20 22 H Blood Pressure 107/76 97/61 L Pulse Oximetry 93 95 Oxygen Delivery 08/19/25 23:00 08/20/25 00:00 08/20/25 00:00 Temperature Pulse Rate 84 74 Respiratory Rate 18 Blood Pressure 110/77 Pulse Oximetry 96 Oxygen Delivery Room Air 08/20/25 00:00 08/20/25 01:00 08/20/25 02:00 Temperature 98.3 F 98.0 F Pulse Rate 79 81 77 Respiratory Rate 13 19 21 H Blood Pressure 95/67 L 109/80 102/64 Pulse Oximetry 97 96 96 Oxygen Delivery 08/20/25 02:00 08/20/25 03:00 08/20/25 04:00 Temperature Pulse Rate 77 77 Respiratory Rate 22 H Blood Pressure 95/59 L Pulse Oximetry 96 Oxygen Delivery Room Air 08/20/25 04:00 08/20/25 04:00 08/20/25 05:00 Temperature 97.8 F Pulse Rate 75 77 76 Respiratory Rate 20 19 Blood Pressure 117/90 101/69 Pulse Oximetry 96 98 Oxygen Delivery 08/20/25 06:00 08/20/25 06:00 08/20/25 07:00 Temperature 98.1 F Pulse Rate 80 80 78 Respiratory Rate 21 H 20 Blood Pressure 116/71 145/113 H Pulse Oximetry 96 97 Oxygen Delivery Exam Narrative: General: Pleasant gentleman in no acute distress HEENT:? Pupils equal and reactive, sclera is clear, moist oral mucosa Neck:? Supple Respiratory:? Clear to auscultation bilaterally, no wheezing, adequate air entry Cardiac:? S1-S2 is normal, regular rate and rhythm Abdomen:? Soft, nontender, nondistended, normoactive bowel sounds Extremities:? No edema, palpable pedal pulses Neuro:? Patient is awake, alert, oriented x3, follows simple commands, answers to questions appropriately Skin:? Abrasion on the nose Psych:? Normal mentation and affect Results Labs 08/20/25 03:45 08/20/25 03:43 Labs: Short CBC 08/19/25 08/20/25 Range/Units 15:37 03:45 WBC 11.0 H 9.7 (4.5-10.0) K/mm3 Hgb 14.1 13.7 L (14.0-18.0) g/dL Hct 38.5 L 38.2 L (42.0-52.0) % Plt Count 284 279 (150-375) k/mm3 BMP 08/19/25 08/19/25 08/20/25 15:37 20:03 00:20 Sodium 123 L 129 L 134 L Potassium 4.4 3.6 4.1 Chloride 91 L 97 L 103 Carbon Dioxide 25 25 26 BUN 9 7 L 9 Creatinine 0.64 L 0.66 L 0.69 L Glucose 84 137 H 114 H Calcium 8.9 8.3 L 8.7 08/20/25 03:43 Sodium 134 L Potassium 4.5 Chloride 103 Carbon Dioxide 26 BUN 10 Creatinine 0.73 Glucose 101 Calcium 8.8 Liver Function 08/19/25 08/20/25 Range/Units 15:37 03:43 Total Bilirubin 0.5 0.4 (0.2-1.3) mg/dL AST 37 39 (17-59) U/L ALT 39 38 (6-50) U/L Alkaline Phosphatase 118 101 (38-126) U/L Albumin 4.5 4.1 (3.5-5.1) g/dL Urine 08/19/25 Range/Units 15:37 Urine Color Yellow (Yellow) Urine Appearance Clear (Clear) Urine pH 6.0 (5.0-9.0) Ur Specific [place] 1.009 (1.001-1.035) Urine Protein Negative (Negative) mg/dL Urine Glucose (UA) Negative (Negative) mg/dL Quality VTE Prophylaxis VTE prophylaxis: pharmacologic ordered Hospitalist MIPS Advance Care Plan I have confirmed that the patient's Advanced Care Plan is present, code status is documented, or surrogate decision maker is listed in patient medical record.: Yes Medication Reconciliation I have utilized all available resources to obtain, update and review the patients current medications (includes all prescriptions, OTC, herbals, cannabis, and nutritional supplements).: Yes
[2025-08-20 09:20] LABS: Hemoglobin A1C 5.0 % (<5.7)
[2025-08-20] MEDS: ENOXAPARIN 40 MG/0.4 ML SYRINGE SUB-Q (10:59)
[2025-08-20 12:48] LABS: Anion Gap 6 mmol/L (4-12); Blood Urea Nitrogen 10 mg/dL (9-20); Calcium 9.4 mg/dL (8.4-10.2); Carbon Dioxide 28 mmol/L (22-30); Chloride 100 mmol/L (98-107); Estimated CRCL calculation 94 ml/min; Estimated Glomerular Filt Rate > 60; Glucose 75 mg/dL (65-110); Potassium 4.6 mmol/L (3.4-5.0); Sodium 134 mmol/L (137-145)
[2025-08-20] MEDS: DESMOPRESSIN ACETATE 4 MCG/ML AMP 1 MCG SUB-Q (13:26)
[2025-08-20 16:19] LABS: Anion Gap 6 mmol/L (4-12); Blood Urea Nitrogen 12 mg/dL (9-20); Calcium 9.0 mg/dL (8.4-10.2); Carbon Dioxide 27 mmol/L (22-30); Chloride 99 mmol/L (98-107); Estimated CRCL calculation 95 ml/min; Estimated Glomerular Filt Rate > 60; Glucose 82 mg/dL (65-110); Potassium 4.3 mmol/L (3.4-5.0); Sodium 132 mmol/L (137-145)
--- NOTE | 2025-08-20 19:26 | PM.CNNEP ---
Assessment and Plan Assessment and plan (1) Acute hyponatremia: Code(s): E87.1 - Hypo-osmolality and hyponatremia Status: Acute Assessment and Plan: as noted on admission likely multifactorial: increased fluid intake OTC supplements medications - Vrylar - ketamine - other (?) evidence of overcorrection noted (123 --> 134 in less than 24 hours) start D5W IVFs may need DDAVP follow serial sodium levels (2) New onset seizure: Code(s): R56.9 - Unspecified convulsions Status: Acute Assessment and Plan: possibly related to hyponatremia, medications, and/or supplements that the patient takes s/p Keppra 1000 mg IV x 1 in the ER no further seizure activity since admission MRI of brain ordered Neurology consulted (3) Complex regional pain syndrome: Status: Acute Assessment and Plan: reported history taking ketamine for treatment would consider alternative treatment as this can cause SIADH-syndrome (4) Anxiety and depression: Code(s): F41.9 - Anxiety disorder, unspecified; F32.A - Depression, unspecified Status: Acute Assessment and Plan: continue lamotrigine and trazadone Discussed with Dr. De La Cruz. I will continue to follow the patient with you while he remains hospitalized and make further recommendations as deemed necessary. Thank you for allowing me to participate in the care of this patient. History of Present Illness Reason for Consult Consult date: 08/20/25 Reason for consult: hyponatremia Chief Complaint Chief complaint: symtomatic hyponatremia History of Present Illness Narrative: The patient is a 40 y/o male with past medical history as outlined below who presented to the ED via EMS for seizure-like activity. The patient was sitting in a chair when he became less responsive and fell out of a chair onto the left side of his face and had a shaking activity described by witnesses for less than 30 seconds with apparent foaming at the mouth. Upon arrival of EMS, he was noted to be postictal. He was subsequently brought to the ER at [facility] for further assessment. Work-up and evaluation in the ER noted the patient to be hemodynamically stable and afebrile. His mental status appeared to be back to normal as he was alert and oriented x 4. Pertinent labs showed a sodium level of 123 with normal renal function, negative UA and urine drug screen, and normal CBC. CT scan of the brain with no acute intracranial abnormality. He was given Keppra 1000 mg IV x 1 and initiated on IVFs with normal saline given his low sodium level. He was subsequently transferred to the ICU for further evaluation and treatment. Since his admission to the hospital, his mentation has remained relatively stable at at baseline. However, as noted by the trend of his repeat labs his sodium level has overcorrected has a sodium level has increased to 134 millimoles per L from admission value of 123 millimoles per L. Renal consultation was requested due to his acute hyponatremia. unfortunately, have no previous labs to compare to in terms of what his baseline sodium level normally runs. Presumably, as he has no reported history of hyponatremia in the past, his sodium normally runs in the normal range. On further questioning, he reports no previous history of seizures or a seizure disorder. He does admit to taking multiple [id number] supplements including ketamine an effort to treat/ control his chronic pain syndrome. Furthermore he recently saw both his primary care physician and psychiatrist to issues delusions was started on Vraylar. he also admits to increased free water and electrolyte containing fluidsintake as he has been having issues and with increased thirst and dry. given his over-correction of his sodium, he has been receiving medications to slow down this process. Currently the time my evaluation, he appears to be in no acute distress. Review of Systems Review of Systems: As per HPI. [facility] Social History Social History Smoking packs per day: 2 Smoking cigarettes per day: 40.0 Years smoked: 30 Smoking pack-years: 60.00 Smoking status: Current every day smoker Tobacco type: cigarettes Alcohol intake: never Substance use: never Lack of Transportation: No Lack of Food: Never True Current Housing: I Have Housing Concerned About Future Housing: No Difficulty Paying Gas/Electric Bills: No Difficulty Paying for Meds: No Currently Unemployed: No Education: High School Diploma/GED Difficulty w/ Childcare or Family Care: No Spiritual care concerns: No Meds Home Medications and Allergies Home Medications ?Medication ?Instructions ?Recorded ?Confirmed ?Type cariprazine 1.5 mg capsule 1.5 mg PO DAILY 08/19/25 08/19/25 History (Vraylar) Held on 08/22/25. Instructions: Resume on 09/05/25. Please discuss with your PCP and psychiatrist before continuing celecoxib 200 mg capsule 200 mg PO BID 08/19/25 08/19/25 History clonazepam 0.5 mg tablet 0.5 mg PO DAILY PRN anxiety 08/19/25 08/19/25 History diazepam 5 mg tablet 5 mg PO DAILY PRN anxiety 08/19/25 08/19/25 History hydroxychloroquine 200 mg tablet 200 mg PO BID 08/19/25 08/19/25 History trazodone 100 mg tablet 200 mg PO HS PRN insomnia 08/19/25 08/19/25 History lamotrigine 100 mg tablet 100 mg PO Q12HR #30 tabs 08/22/25 Rx (Lamictal) Allergies Allergy/AdvReac Type Severity Reaction Status Date / Time Sulfa (Sulfonamide Allergy Intermediate Unknown Verified 08/19/25 18:37 Antibiotics) Cephalosporins Allergy Mild Unknown Verified 08/19/25 18:37 Latex, Natural Rubber Allergy Mild Rash Verified 08/19/25 18:37 erythromycin base AdvReac Mild Nausea and Verified 08/21/25 07:52 Vomiting bee sting Allergy Severe Anaphylactic Uncoded 08/19/25 15:10 Shock macrolides Allergy Intermediate Rash Uncoded 08/19/25 15:10 Vital Signs Vital Signs Temp Pulse Resp BP Pulse Ox O2 Del Method 08/20/25 18:00 73 08/20/25 16:00 76 08/20/25 16:00 98.0 F 76 16 103/73 97 08/20/25 15:49 Room Air 08/20/25 14:00 75 08/20/25 12:30 97.9 F 78 18 122/83 99 08/20/25 12:30 81 08/20/25 12:30 Room Air 08/20/25 10:00 80 08/20/25 09:00 97.9 F 79 114/81 98 08/20/25 08:00 80 114/84 97 08/20/25 08:00 Room Air 08/20/25 08:00 79 08/20/25 07:00 78 20 145/113 H 97 08/20/25 06:00 80 08/20/25 06:00 98.1 F 80 21 H 116/71 96 08/20/25 05:00 76 19 101/69 98 08/20/25 04:00 97.8 F 77 20 117/90 96 10/21/25 04:00 75 08/20/25 04:00 Room Air 08/20/25 03:00 77 22 H 95/59 L 96 08/20/25 02:00 77 08/20/25 02:00 98.0 F 77 21 H 102/64 96 08/20/25 01:00 81 19 109/80 96 08/20/25 00:00 98.3 F 79 13 95/67 L 97 08/20/25 00:00 74 08/20/25 00:00 Room Air 08/19/25 23:00 84 18 110/77 96 08/19/25 22:00 87 08/19/25 22:00 98.2 F 87 22 H 97/61 L 95 08/19/25 21:00 92 20 107/76 93 08/19/25 20:00 85 08/19/25 20:00 Room Air 08/19/25 20:00 97.9 F 86 20 107/71 97 Exam Narrative: GENERAL APPEARANCE: well developed well nourished male in no acute distress HEENT: normocephalic, atraumatic, normal conjunctiva and sclera, nares patient NECK: no lymphadenopathy, thyromegaly, or JVD MOUTH: normal lips, teeth, and gums CARDIOVASCULAR: RRR, normal S1 and S2, no rub RESPIRATORY: clear to auscultation bilaterally ABDOMEN: soft, nontender, nondistended, positive bowel sounds present EXTREMITIES: no evidence of cyanosis, clubbing, or edema NEUROLOGICAL: alert and oriented x 3; CN II - XII intact bilaterally; no focal deficits noted Results Lab Results 08/21/25 04:18 08/21/25 04:18 Lab results: Most recent lab results Calcium 9.0 mg/dL (8.4-10.2) 08/20/25 15:57
[2025-08-20 20:48] LABS: Anion Gap 6 mmol/L (4-12); Blood Urea Nitrogen 13 mg/dL (9-20); Calcium 8.9 mg/dL (8.4-10.2); Carbon Dioxide 25 mmol/L (22-30); Chloride 98 mmol/L (98-107); Estimated CRCL calculation 104 ml/min; Estimated Glomerular Filt Rate > 60; Glucose 102 mg/dL (65-110); Potassium 3.8 mmol/L (3.4-5.0); Sodium 129 mmol/L (137-145)
[2025-08-21] VITALS (16 sets, daily range): BP systolic 106–137; BP diastolic 81–97; PULSE 64–88; RESP 17–26; TEMP 36.4–36.7; O2SAT 94–99
[2025-08-21 04:42] LABS: Hematocrit 38.1 % (42.0-52.0); Hemoglobin 13.3 g/dL (14.0-18.0); Immature Granulocyte Percent A 0.6 % (0-0.5); Lymphocytes Absolute Auto 3.55 K/mm3 (0.9-3.2); Mean Corpuscular HGB Conc 34.9 g/dl (32-36); Mean Corpuscular Hemoglobin 32.7 pg (26-34); Mean Corpuscular Volume 93.6 fl (80-100); Nucleated Red Blood Cells Absolute Auto 0.000 K/mm3 (0.0-0.012); Nucleated Red Blood Cells Perc 0.0 % (0.0-0.2); Platelet Count Result 278 k/mm3 (150-375); Red Blood Count 4.07 M/mm3 (4.6-6.20); White Blood Count 12.5 K/mm3 (4.5-10.0)
[2025-08-21 05:05] LABS: Alanine Aminotransferase 43 U/L (6-50); Albumin Level 4.0 g/dL (3.5-5.1); Alkaline Phosphatase 94 U/L (38-126); Anion Gap 9 mmol/L (4-12); Aspartate Amino Transferase 35 U/L (17-59); Bilirubin,Total 0.3 mg/dL (0.2-1.3); Blood Urea Nitrogen 13 mg/dL (9-20); Calcium 8.8 mg/dL (8.4-10.2); Carbon Dioxide 22 mmol/L (22-30); Chloride 99 mmol/L (98-107); Estimated CRCL calculation 108 ml/min; Estimated Glomerular Filt Rate > 60; Glucose 98 mg/dL (65-110); Magnesium 2.0 mg/dL (1.6-2.3); Potassium 4.0 mmol/L (3.4-5.0); Sodium 130 mmol/L (137-145); Total Protein 6.4 g/dL (6.3-8.2)
--- NOTE | 2025-08-21 08:19 | PM.IMPN ---
Progress Note: A&P Assessment and Plan (1) Acute hyponatremia: Code(s): E87.1 - Hypo-osmolality and hyponatremia Status: Acute Assessment and Plan: Hyponatremia likely related to increased fluid intake, supplements, medication related -sodium levels 123 on admission -sodium levels increased to 134 in approximately 12 hours -started D5W, discussed with Nephrology by architectural practice manager, as it is a rapid increase in the sodium level. -08/21,Na 130, discontinued D5W -nephrology following (2) New onset seizure: Code(s): R56.9 - Unspecified convulsions Status: Acute Assessment and Plan: Seizures could be likely related to hyponatremia, medications, supplements that the patient takes -he was recently started on Vraylar which also can decrease sodium levels -received Keppra 1000 mg IV x1 in the ER -no more seizure activity overnight -continue to monitor - MRI brain shows no significant finding -neurology consulted and appreciate recommendations (3) Complex regional pain syndrome: Status: Acute Assessment and Plan: Patient has been receiving ketamine treatments for his chronic regional pain syndrome -ketamine may cause SIADH -hyponatremia -will discuss with Nephrology (4) Anxiety and depression: Code(s): F41.9 - Anxiety disorder, unspecified; F32.A - Depression, unspecified Status: Acute Assessment and Plan: Continue lamotrigine, trazadone Plan DVT prophylaxis: Lovenox Stress ulcer prophylaxis: Not indicated Nutrition: Regular diet Code Status: Full code Subjective Date/time seen: 08/21/25 08:19 Interval history: Had a long conversation with the patient and his mother. Patient has a long history of complex regional pain syndrome and anxiety sleep disorder. As per patient he receives scutum in infusion from Dr.Christopher Briceño at [facility]. He reports he is the only physician who does ketamine infusion in a way which is different from other ketamine infusion center around this area. He reports the q.day min infusion help some with anxiety. He goes to [facility] for ketamine infusion once in every 2 months.Called and left Exam Narrative: General: Pleasant gentleman in no acute distress HEENT:? Pupils equal and reactive, sclera is clear, moist oral mucosa Neck:? Supple Respiratory:? Clear to auscultation bilaterally, no wheezing, adequate air entry Cardiac:? S1-S2 is normal, regular rate and rhythm Abdomen:? Soft, nontender, nondistended, normoactive bowel sounds Extremities:? No edema, palpable pedal pulses Neuro:? Patient is awake, alert, oriented x3, follows simple commands, answers to questions appropriately Skin:? Abrasion on the nose Psych:? Normal mentation and affect Objective Data Vital Signs Vital Signs: Vital Signs - 24 hr 08/20/25 09:00 08/20/25 10:00 08/20/25 12:30 Temperature 97.9 F Pulse Rate 79 80 Respiratory Rate Blood Pressure 114/81 Pulse Oximetry 98 Oxygen Delivery Room Air 08/20/25 12:30 08/20/25 12:30 08/20/25 14:00 Temperature 97.9 F Pulse Rate 81 78 75 Respiratory Rate 18 Blood Pressure 122/83 Pulse Oximetry 99 Oxygen Delivery 08/20/25 15:49 08/20/25 16:00 08/20/25 16:00 Temperature 98.0 F Pulse Rate 76 76 Respiratory Rate 16 Blood Pressure 103/73 Pulse Oximetry 97 Oxygen Delivery Room Air 08/20/25 18:00 08/20/25 20:00 08/20/25 20:00 Temperature 98.6 F Pulse Rate 73 73 Respiratory Rate 18 Blood Pressure 122/88 Pulse Oximetry 98 Oxygen Delivery Room Air 08/20/25 20:00 08/20/25 22:00 08/21/25 00:00 Temperature Pulse Rate 74 71 Respiratory Rate Blood Pressure Pulse Oximetry Oxygen Delivery Room Air 08/21/25 00:00 08/21/25 00:00 08/21/25 02:00 Temperature 97.7 F Pulse Rate 78 76 70 Respiratory Rate 18 Blood Pressure 106/81 Pulse Oximetry 94 Oxygen Delivery 08/21/25 04:00 08/21/25 04:00 08/21/25 04:00 Temperature 97.9 F Pulse Rate 74 70 Respiratory Rate 17 Blood Pressure 123/97 H Pulse Oximetry 97 Oxygen Delivery Room Air 08/21/25 06:00 Temperature Pulse Rate 73 Respiratory Rate Blood Pressure Pulse Oximetry Oxygen Delivery Intake/Output Intake/Output: Intake & Output 08/18/25 08/19/25 08/20/25 08/21/25 23:59 23:59 23:59 23:59 Intake Total 1100 3440.0 550 Output Total 1600 4900 1150 Balance -500 -1460.0 -600 Meds/Results Medications: Active Medications Generic Name Dose Route Start Last Admin Trade Name Domenicoq PRN Reason Stop Dose Admin Celecoxib 200 mg 08/20/25 08:00 08/20/25 16:29 Celecoxib 200 Mg Capsule PO 200 mg BIDWM SHELL Administration Diazepam 5 mg 08/20/25 02:25 Diazepam (*Crx) 5 Mg Tablet PO DAILY PRN Anxiety Enoxaparin Sodium 40 mg 08/21/25 09:00 Enoxaparin 40 Mg/0.4 Ml Syringe SUB-Q DAILY SHELL Hydroxychloroquine Sulfate 200 mg 08/20/25 09:00 08/20/25 20:18 Hydroxychloroquine Sulfate 200 Mg Tablet PO 200 mg Q12HR SHELL Administration Lamotrigine 75 mg 08/20/25 09:00 08/20/25 08:30 Lamotrigine 25 Mg Tablet PO 75 mg DAILY SHELL Administration Nicotine 1 patch 08/19/25 21:30 08/20/25 08:30 Nicotine (*Pbkc) 21 Mg Patch TRANSDERM 1 patch DAILY SHELL Administration Trazodone HCl 200 mg 08/20/25 02:25 Trazodone Hcl 50 Mg Tablet PO HS PRN Insomnia Radiology Results: ITS Impressions Head CT 08/19/25 16:06 Impression: 1.No acute intracranial abnormality. Brain MRI 08/20/25 12:28 IMPRESSION: 1. Normal brain MR. No acute intracranial process, abnormal enhancing brain lesions or other etiology for reported seizures. Labs Labs: Laboratory Results - last 24 hr 08/20/25 08/20/25 08/20/25 03:43 12:23 15:57 WBC RBC Hgb Hct MCV MCH MCHC RDW Plt Count MPV Immature Gran % (Auto) Neut % (Auto) Lymph % (Auto) [facility] % (Auto) Eos % (Auto) Baso % (Auto) Lymph # (Auto) [facility] # (Auto) Eos # (Auto) Baso # (Auto) Abs Immat Gran (auto) Absolute Neuts (auto) Absolute Nucleated RBC Nucleated RBC % Sodium 134 L 132 L Potassium 4.6 4.3 Chloride 100 99 Carbon Dioxide 28 27 Anion Gap 6 6 BUN 10 12 Creatinine 0.81 0.80 Estim Creat Clear Calc 94 95 Estimated GFR > 60 > 60 Glucose 75 82 Hemoglobin A1c 5.0 Calcium 9.4 9.0 Phosphorus Magnesium Total Bilirubin AST ALT Alkaline Phosphatase Total Protein Albumin 08/20/25 08/21/25 19:55 04:18 WBC 12.5 H RBC 4.07 L Hgb 13.3 L Hct 38.1 L MCV 93.6 MCH 32.7 MCHC 34.9 RDW 12.3 Plt Count 278 MPV 8.1 Immature Gran % (Auto) 0.6 H Neut % (Auto) 59.0 Lymph % (Auto) 28.4 [facility] % (Auto) 8.9 H Eos % (Auto) 2.5 Baso % (Auto) 0.6 Lymph # (Auto) 3.[address] [facility] # (Auto) 1.1 H Eos # (Auto) 0.3 Baso # (Auto) 0.1 Abs Immat Gran (auto) 0.07 H Absolute Neuts (auto) 7.4 H Absolute Nucleated RBC 0.000 Nucleated RBC % 0.0 Sodium 129 L 130 L Potassium 3.8 4.0 Chloride 98 99 Carbon Dioxide 25 22 Anion Gap 6 9 BUN 13 13 Creatinine 0.73 0.70 Estim Creat Clear Calc 104 108 Estimated GFR > 60 > 60 Glucose 102 98 Hemoglobin A1c Calcium 8.9 8.8 Phosphorus 3.8 Magnesium 2.0 Total Bilirubin 0.3 AST 35 ALT 43 Alkaline Phosphatase 94 Total Protein 6.4 Albumin 4.0 Hospitalist MIPS Advance Care Plan I have confirmed that the patient's Advanced Care Plan is present, code status is documented, or surrogate decision maker is listed in patient medical record.: Yes Medication Reconciliation I have utilized all available resources to obtain, update and review the patients current medications (includes all prescriptions, OTC, herbals, cannabis, and nutritional supplements).: Yes
[2025-08-21] MEDS: ENOXAPARIN 40 MG/0.4 ML SYRINGE SUB-Q (08:39)
[2025-08-21] MEDS: HYDROXYCHLOROQUINE SULFATE 200 MG TABLET PO ×2 (08:39→20:29)
[2025-08-21] MEDS: NICOTINE (*PBKC) 21 MG PATCH 1 PATCH TRANSDERM (08:39)
[2025-08-21] MEDS: CELECOXIB 200 MG CAPSULE PO ×2 (08:39→17:09)
--- NOTE | 2025-08-21 10:18 | PC.NURSE ---
Transfered to [address] per wheelchair. Report given to MAU Elder. All questions answered. Belongings sent with patient.
--- NOTE | 2025-08-21 12:23 | WPDNEURCNPN ---
Assessment and Plan Assessment and plan (1) Complex regional pain syndrome: Status: Acute (2) Anxiety and depression: Code(s): F41.9 - Anxiety disorder, unspecified; F32.A - Depression, unspecified Status: Acute (3) New onset seizure: Code(s): R56.9 - Unspecified convulsions Status: Acute (4) Acute hyponatremia: Code(s): E87.1 - Hypo-osmolality and hyponatremia Status: Acute Plan 1. New onset seizure with negative MRI of the brain at present 2. Hyponatremia 3. Complex regional pain syndrome for which patient is receiving the ketamine treatment 4. Anxiety disorder with depression plan continue the treatment as such for the correction of the hyponatremia, can not always be discharged on Lamictal 100mg twice a day as an anticonvulsant and ongoing treatment for his bipolar illness along with other medications. Obviously we need to contact the psychiatrist who has been giving him other medications. Consult date: 08/21/25 HPI: Sahil Arroyo is a 40 year old male Admitted to the hospital through the emergency room with ongoing history of anxiety with depression, CPRS with ketamine treatments chronic back pain brought to the ER by the EMS for seizure-like activity. Reportedly he was sitting in a chair when he became less responsive and fell out of a chair onto the left side of his face and shaking activity lasting for at least 30seconds along with foaming at the mouth. Patient does not have a history of seizures in the past and was reportedly postictal as per the EMS and there was no history of any other associated symptomatology. His medications included 1.vraylar1.5mg daily 2. Celebrex 200mg b.i.d. 3. Clonazepam 0.5mg p.r.n. 4. Diazepam 5mg p.r.n. 5. Hydroxychloroquine 200mg b.i.d. 6. Lamotrigine 75mg daily 7. Trazodone 200mg p.r.n. HS. He is reportedly allergic to sulfa, cephalosporins, erythromycin, latex and natural rubber, bee sting, and macrolides. On initial exam in the emergency room exam was grossly nonfocal. His history of currently everyday smoker his smoking pack years of 60 but is no alcohol intake. in the ER his vital signs were normal except blood pressure 140/98, his CBC was normal BMP revealed sodium only 129, UA was normal and master scan was normal alcohol level was less than 10. EKG was normal, initial CT scan of the head was normal no evidence of bleed and subsequent MRI of the brain is also normal. Hip pelvis x-rays were negative , knee x-rays were negative. Patient at present receiving Celebrex 200mg b.i.d., hydroxychloroquine 200mg q.12 hours, lamotrigine 75mg daily, and p.r.n. medication diazepam and trazodone. It was documented that ketamine may cause SIADH with hyponatremia. But his other medication have been continued as such. 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 Review of Systems Review of Systems: All systems reviewed & are unremarkable except as noted in HPI and below PMFSH Social History Social History Smoking packs per day: 2 Smoking cigarettes per day: 40.0 Years smoked: 30 Smoking pack-years: 60.00 Smoking status: Current every day smoker Tobacco type: cigarettes Alcohol intake: never Substance use: never Lack of Transportation: No Lack of Food: Never True Current Housing: I Have Housing Concerned About Future Housing: No Difficulty Paying Gas/Electric Bills: No Difficulty Paying for Meds: No Currently Unemployed: No Education: High School Diploma/GED Difficulty w/ Childcare or Family Care: No Spiritual care concerns: No Meds Home Medications and Allergies Home Medications ?Medication ?Instructions ?Recorded ?Confirmed ?Type cariprazine 1.5 mg capsule 1.5 mg PO DAILY 08/19/25 08/19/25 History (Vraylar) celecoxib 200 mg capsule 200 mg PO BID 08/19/25 08/19/25 History clonazepam 0.5 mg tablet 0.5 mg PO DAILY PRN anxiety 08/19/25 08/19/25 History diazepam 5 mg tablet 5 mg PO DAILY PRN anxiety 08/19/25 08/19/25 History hydroxychloroquine 200 mg tablet 200 mg PO BID 08/19/25 08/19/25 History lamotrigine 25 mg tablet 75 mg PO DAILY 08/19/25 08/19/25 History trazodone 100 mg tablet 200 mg PO HS PRN insomnia 08/19/25 08/19/25 History Allergies Allergy/AdvReac Type Severity Reaction Status Date / Time Sulfa (Sulfonamide Allergy Intermediate Unknown Verified 08/19/25 18:37 Antibiotics) Cephalosporins Allergy Mild Unknown Verified 08/19/25 18:37 Latex, Natural Rubber Allergy Mild Rash Verified 08/19/25 18:37 erythromycin base AdvReac Mild Nausea and Verified 08/21/25 07:52 Vomiting bee sting Allergy Severe Anaphylactic Uncoded 08/19/25 15:10 Shock macrolides Allergy Intermediate Rash Uncoded 08/19/25 15:10 Vital Signs Vital Signs - 24 hr 08/20/25 12:30 08/20/25 12:30 08/20/25 12:30 Temperature 36.6 C Pulse Rate 81 78 Respiratory Rate 18 Blood Pressure 122/83 Pulse Oximetry 99 Oxygen Delivery Room Air 08/20/25 14:00 08/20/25 15:49 08/20/25 16:00 Temperature 36.7 C Pulse Rate 75 76 Respiratory Rate 16 Blood Pressure 103/73 Pulse Oximetry 97 Oxygen Delivery Room Air 08/20/25 16:00 08/20/25 18:00 08/20/25 20:00 Temperature Pulse Rate 76 73 Respiratory Rate Blood Pressure Pulse Oximetry Oxygen Delivery Room Air 08/20/25 20:00 08/20/25 20:00 08/20/25 22:00 Temperature 37.0 C Pulse Rate 73 74 71 Respiratory Rate 18 Blood Pressure 122/88 Pulse Oximetry 98 Oxygen Delivery 08/21/25 00:00 08/21/25 00:00 08/21/25 00:00 Temperature 36.5 C Pulse Rate 78 76 Respiratory Rate 18 Blood Pressure 106/81 Pulse Oximetry 94 Oxygen Delivery Room Air 08/21/25 02:00 08/21/25 04:00 08/21/25 04:00 Temperature Pulse Rate 70 74 Respiratory Rate Blood Pressure Pulse Oximetry Oxygen Delivery Room Air 08/21/25 04:00 08/21/25 06:00 08/21/25 08:00 Temperature 36.6 C Pulse Rate 70 73 86 Respiratory Rate 17 17 Blood Pressure 123/97 H Pulse Oximetry 97 97 Oxygen Delivery Room Air 08/21/25 08:00 08/21/25 08:00 08/21/25 10:00 Temperature 36.6 C Pulse Rate 86 86 88 Respiratory Rate 26 H Blood Pressure 123/89 Pulse Oximetry 97 Oxygen Delivery 08/21/25 11:30 Temperature 36.7 C Pulse Rate 78 Respiratory Rate 20 Blood Pressure 125/84 Pulse Oximetry 99 Oxygen Delivery Exam Narrative: examination today revealed him to be awake alert cooperative in no obvious acute distress, head normocephalic with no cranial bruits, ear nose throat examination normal, neck supple with no cervical bruit, no thyromegaly no lymphadenopathy, heart regular with no murmur, lungs clear to auscultation with no rhonchi or crepitations, abdomen soft nontender with normal bowel sounds, neurologically he is awake alert oriented being in the hospital and is interested in his conversation with his mother his speech is not dysphasic not dysarthric not dysphonic, pupils round regular react to light equally, feels the vision are full in all 4 quadrants, extraocular movements are full with no nystagmus, facial sensation intact, face symmetrical, tongue in the oral cavity, motor examination revealed him to have normal strength and tone in upper and lower extremities with normal deep tendon reflexes symmetrical and plantars downgoing with no sensory deficit or cerebellar deficits Results Labs 08/21/25 04:18 08/21/25 04:18 Labs: Short CBC 08/21/25 Range/Units 04:18 WBC 12.5 H (4.5-10.0) K/mm3 Hgb 13.3 L (14.0-18.0) g/dL Hct 38.1 L (42.0-52.0) % Plt Count 278 (150-375) k/mm3 BMP 08/20/25 08/20/25 08/20/25 12:23 15:57 19:55 Sodium 134 L 132 L 129 L Potassium 4.6 4.3 3.8 Chloride 100 99 98 Carbon Dioxide 28 27 25 BUN 10 12 13 Creatinine 0.81 0.80 0.73 Glucose 75 82 102 Calcium 9.4 9.0 8.9 08/21/25 04:18 Sodium 130 L Potassium 4.0 Chloride 99 Carbon Dioxide 22 BUN 13 Creatinine 0.70 Glucose 98 Calcium 8.8 Liver Function 08/21/25 Range/Units 04:18 Total Bilirubin 0.3 (0.2-1.3) mg/dL AST 35 (17-59) U/L ALT 43 (6-50) U/L Alkaline Phosphatase 94 (38-126) U/L Albumin 4.0 (3.5-5.1) g/dL
--- NOTE | 2025-08-21 16:18 | P.PNNP_ITS ---
Progress Note: A&P Assessment and Plan (1) Acute hyponatremia: Code(s): E87.1 - Hypo-osmolality and hyponatremia Status: Acute Assessment and Plan: * as noted on admission * likely multifactorial: * increased fluid intake * OTC supplements * medications - Vrylar - ketamine - other (?) * evidence of overcorrection noted (123 --> 134 in less than 24 hours) * stabilized with use of D5W IVFs and DDAVP * goal of therapy is 6 - 8mmol/L in 24 hours * follow serial sodium levels (2) New onset seizure: Code(s): R56.9 - Unspecified convulsions Status: Acute Assessment and Plan: * possibly related to hyponatremia, medications, and/or supplements that the patient takes * s/p Keppra 1000 mg IV x 1 in the ER * no further seizure activity since admission * MRI of brain noted * Neurology recommendations reviewed (3) Complex regional pain syndrome: Status: Acute Assessment and Plan: * reported history * taking ketamine for treatment * would consider alternative treatment as this can cause SIADH-syndrome (4) Anxiety and depression: Code(s): F41.9 - Anxiety disorder, unspecified; F32.A - Depression, unspecified Status: Acute Assessment and Plan: * continue lamotrigine and trazadone Will continue to follow. L Subjective Date/time seen: 08/21/25 13:53 Interval history: Follow-up for acute hyponatremia. Sodium overcorrection treated with DDAVP and D5W fluids with stabilization of sodium level; no further seizure activity since admission; transferred out of ICU earlier this morning; no apparent distress noted; Neurology recommendations noted. Exam 2 Narrative: General: WD/WN male in NAD Heart: normal S1 and S2; no rub Lungs: clear to auscultation Abdomen: soft, nontender, nondistended, positive bowel sounds Extremities: no cyanosis or clubbing; no edema Skin: warm and dry Objective Data Vital Signs Vital Signs: Vital Signs Temp Pulse Resp BP Pulse Ox O2 Del Method 08/21/25 12:00 64 20 99 Room Air 08/21/25 11:30 98.1 F 78 20 125/84 99 08/21/25 10:00 88 08/21/25 08:00 97.8 F 86 26 H 123/89 97 08/21/25 08:00 86 08/21/25 08:00 86 17 97 Room Air 08/21/25 06:00 73 08/21/25 04:00 97.9 F 70 17 123/97 H 97 08/21/25 04:00 Room Air 08/21/25 04:00 74 08/21/25 02:00 70 08/21/25 00:00 76 08/21/25 00:00 97.7 F 78 18 106/81 94 08/21/25 00:00 Room Air 08/20/25 22:00 71 08/20/25 20:00 74 08/20/25 20:00 98.6 F 73 18 122/88 98 08/20/25 20:00 Room Air Intake/Output Intake/Output: Intake & Output 08/18/25 08/19/25 08/20/25 08/21/25 23:59 23:59 23:59 23:59 Intake Total 1100 3440.0 1530 Output Total 1600 4900 1550 Balance -500 -1460.0 -20 Meds/Results Medications: Active Medications Generic Name Dose Route Start Last Admin Trade Name Freq PRN Reason Stop Dose Admin Celecoxib 200 mg 08/20/25 08:00 08/21/25 17:09 Celecoxib 200 Mg Capsule PO 200 mg BIDWM SHELL Administration Diazepam 5 mg 08/20/25 02:25 Diazepam (*Crx) 5 Mg Tablet PO DAILY PRN Anxiety Enoxaparin Sodium 40 mg 08/21/25 09:00 08/21/25 08:39 Enoxaparin 40 Mg/0.4 Ml Syringe SUB-Q 40 mg DAILY SHELL Administration Hydroxychloroquine Sulfate 200 mg 08/20/25 09:00 08/21/25 08:39 Hydroxychloroquine Sulfate 200 Mg Tablet PO 200 mg Q12HR SHELL Administration Lamotrigine 100 mg 08/21/25 21:00 Lamotrigine 100 Mg Tablet PO Q12HR SHELL Nicotine 1 patch 08/19/25 21:30 08/21/25 08:39 Nicotine (*Pbkc) 21 Mg Patch TRANSDERM 1 patch DAILY SHELL Administration Trazodone HCl 200 mg 08/20/25 02:25 Trazodone Hcl 50 Mg Tablet PO HS PRN Insomnia Radiology Results: ITS Impressions Head CT 08/19/25 16:06 Impression: 1.No acute intracranial abnormality. Brain MRI 08/20/25 12:28 IMPRESSION: 1. Normal brain MR. No acute intracranial process, abnormal enhancing brain lesions or other etiology for reported seizures. Labs Labs: Laboratory Tests 08/21/25 04:18 08/21/25 04:18 Calcium 8.8 Phosphorus 3.8 Magnesium 2.0 Total Bilirubin 0.3 AST 35 ALT 43 Alkaline Phosphatase 94 Total Protein 6.4 Albumin 4.0
[2025-08-22] VITALS: BP 102/64; PULSE 71; PULSE 78; RESP 20; TEMP 36.6; O2SAT 97
[2025-08-22 02:00] VITALS: PULSE 73
[2025-08-22 04:00] VITALS: BP 103/66; PULSE 70; RESP 15; TEMP 36.8; O2SAT 100
[2025-08-22 04:30] VITALS: PULSE 70; RESP 15; O2SAT 100
[2025-08-22 06:00] VITALS: PULSE 63
--- NOTE | 2025-08-22 07:17 | P.DS_ITS ---
DS: Admitting Diagnosis Discharge Date 08/22/2025 Admitting Diagnosis Seizures DS: Discharge Diagnosis Discharge Diagnosis (1) Acute hyponatremia: Code(s): E87.1 - Hypo-osmolality and hyponatremia Status: Acute Assessment and Plan: Please refer to hospital course for brief summary Hyponatremia likely related to increased fluid intake, supplements, medication related -sodium levels 123 on admission -sodium levels increased to 134 in approximately 12 hours -started D5W, discussed with Nephrology by quality control tech raw materials, as it is a rapid increase in the sodium level. -08/21,Na 130, discontinued D5W -nephrology following (2) New onset seizure: Code(s): R56.9 - Unspecified convulsions Status: Acute Assessment and Plan: Seizures could be likely related to hyponatremia, medications, supplements that the patient takes -he was recently started on Vraylar which also can decrease sodium levels -received Keppra 1000 mg IV x1 in the ER -no more seizure activity overnight -continue to monitor - MRI brain shows no significant finding -neurology consulted and appreciate recommendations (3) Complex regional pain syndrome: Status: Acute Assessment and Plan: Patient has been receiving ketamine treatments for his chronic regional pain syndrome -ketamine may cause SIADH -hyponatremia -will discuss with Nephrology (4) Anxiety and depression: Code(s): F41.9 - Anxiety disorder, unspecified; F32.A - Depression, unspecified Status: Acute Assessment and Plan: Continue lamotrigine, trazadone DS: Summary Hospital Course Hospital Course: 40-year-old male with past medical history of anxiety and depression, chronic back pain, CPRS with ketamine treatments presents to the ED via EMS on 08/19/2025 for seizure-like activity. The patient was sitting in a chair when he became less responsive and fell out of a chair onto the left side of his face and had a shaking activity described by witnesses for less than 30 seconds with apparent foaming at the mouth. Patient does not have history of seizures. Patient seemed ?postictal? with EMS but felt like himself on arrival to the ED. denies fevers, chills, chest pain, shortness a breath, nausea, vomiting, di arrhea, constipation, abdominal pain. Patient does state that he has felt more thirsty lately and drinking a lot of electrolyte containing fluids. Vital signs stable on admit. Afebrile Labs with a slight leukocytosis at 11. Sodium noted to be 123. UDS negative. UA with no evidence of infection. Head CT with no acute intracranial abnormality I had a long conversation with the patient and his mother during my evaluation. Patient has a long history of complex regional pain syndrome and anxiety sleep disorder. As per patient he receives scutum in infusion from Dr.Christopher Briceño at [facility]. He reports he is the only physician who does ketamine infusion in a way which is different from other ketamine infusion center around this area. He reports the q.day min infusion help some with anxiety. He goes to [facility] for ketamine infusion once in every 2 months.Called and and he agrees patient will be discharged with the Lamictal 100 mg p.o. b.i.d. which can be helpful as anticonvulsant and for his ongoing treatment for bipolar illness. Patient needs to follow-up with the psychiatrist and PCP within a week upon discharge. Patient needs to follow-up with his sodium level in a week with his PCP. I do not recommend ketamine and cariprazine until he sees his primary care physician and Psychiatry for further continuation. Status at Discharge Cognitive/behavioral status at discharge: Stable Time Spent with Patient Time attestation: Total time spent providing and/or coordinating discharge services: 45 minutes Exam Narrative: General: Pleasant gentleman in no acute distress HEENT:? Pupils equal and reactive, sclera is clear, moist oral mucosa Neck:? Supple Respiratory:? Clear to auscultation bilaterally, no wheezing, adequate air entry Cardiac:? S1-S2 is normal, regular rate and rhythm Abdomen:? Soft, nontender, nondistended, normoactive bowel sounds Extremities:? No edema, palpable pedal pulses Neuro:? Patient is awake, alert, oriented x3, follows simple commands, answers to questions appropriately Skin:? Abrasion on the nose Psych:? Normal mentation and affect DS: Data Imaging Radiologist's impression: ITS Impressions Head CT 08/19/25 16:06 Impression: 1.No acute intracranial abnormality. Brain MRI 08/20/25 12:28 IMPRESSION: 1. Normal brain MR. No acute intracranial process, abnormal enhancing brain lesions or other etiology for reported seizures. Discharge Plan Discharge Attending physician on discharge: Dominic Nunes Consulting providers: Magen Ford; Kayla Bravo; Main Rosen Discharging Clinician: Dominic Nunes Anticipated Discharge Date/Time: 08/22/25 07:21 Patient Disposition: Home Activity: as tolerated Diet: as tolerated Discharge Instructions: Patient will be discharged with the Lamictal 100 mg p.o. b.i.d. which can be helpful as anticonvulsant and for his ongoing treatment for bipolar illness. Do not recommend ketamine and cariprazine until he sees his primary care physician and Psychiatry for further continuation and recommendation. Patient needs to follow-up with the psychiatrist and PCP within a week upon discharge. Patient needs to follow-up with his sodium level in a week with his PCP. Patient Instructions: Antibiotic Form Patient Language: Bangladeshi Stand Alone Forms: General Discharge Information Follow-up/Referrals: Kayla Bravo MD [Physician, Nephrology] Lashell,DO Isaac [Primary Care Provider] Main Rosen MD [Physician, Neurology] Discharge Medications: New lamotrigine [Lamictal] 100 mg Tablet 100 mg PO Q12HR Qty: 30 0RF Continued celecoxib 200 mg capsule 200 mg PO BID clonazepam 0.5 mg tablet 0.5 mg PO DAILY PRN (Reason: anxiety) diazepam 5 mg tablet 5 mg PO DAILY PRN (Reason: anxiety) hydroxychloroquine 200 mg tablet 200 mg PO BID trazodone 100 mg tablet 200 mg PO HS PRN (Reason: insomnia) Held Vraylar 1.5 mg capsule 1.5 mg PO DAILY Hold Instructions: Resume on 09/05/25. Please discuss with your PCP and psychiatrist before continuing Discontinued lamotrigine 25 mg tablet 75 mg PO DAILY Date of admission: 08/21/25 16:18 Primary Care Provider: Lashell,Isaac Admitting Provider: Armond Nowak Attending physician on admission: Armond Nowak Condition: Stable
[2025-08-22 07:53] VITALS: BP 120/79; PULSE 79; RESP 18; O2SAT 100
== END 2025-08-22 07:58 | disposition home or self-care (01) | DRG 101 ==
LOC: ANHED 16:27 → ANHICU 22:24 → ANHIMU 08-21 10:05
PROVIDERS: Internal Medicine; Internal Medicine Nephrology; Nurse Practitioner Adult Health; Admitting Provider Internal Medicine; Emergency Provider Student in an Organized Health Care Education/Training Program; PCP Student in an Organized Health Care Education/Training Program; Visit Provider General Practice
DX: G40.89 Other seizures (principal); E87.1 Hypo-osmolality and hyponatremia; G90.59 Complex regional pain syndrome I of other specified site; T41.295A Adverse effect of other general anesthetics, initial encounter; T43.595A Adverse effect of other antipsychotics and neuroleptics, initial encounter; F41.9 Anxiety disorder, unspecified; F22 Delusional disorders; F31.9 Bipolar disorder, unspecified; M54.89 Other dorsalgia; D72.829 Elevated white blood cell count, unspecified; S00.31XA Abrasion of nose, initial encounter; W07.XXXA Fall from chair, initial encounter; F17.210 Nicotine dependence, cigarettes, uncomplicated
CPT/HCPCS: 36415; 70450; 70553; 80048; 80053; 80307; 81003; 82077; 83036; 83605; 83735; 84100; 85025; 87641; 93005; 96361; 96365; 96372; 99285; A9270; A9577; G0378; J1650; J1953; J2597; J7030; J7070